=== PATIENT | male | born 1960 | race Caucasian/White ===

== ENCOUNTER 2021-04-09 08:01 | Inpatient (IN) | payer MEDICARE, SELFPAY ==
[2021-04-09] VITALS (8 sets, daily range): BP systolic 87–132; BP diastolic 67–72; PULSE 69–91; RESP 18–24; TEMP 36.2–38.7; O2SAT 87–97; BMI 37.8
--- NOTE | 2021-04-09 08:20 | RAD_ITS ---
STUDY: X-RAY CHEST REASON FOR EXAM: Male, 61 years old. dyspnea TECHNIQUE: AP COMPARISON: None. FINDINGS: EKG leads project over the chest. Airspace disease in the bilateral upper lobes and right lower lobe. There is no demonstrated pleural abnormality. Normal size heart. Normal mediastinum and fantasma. Normal visualized pulmonary arteries. Normal visualized aortic arch and descending thoracic aorta. Normal visualized thoracic spine. Normal visualized ribs, clavicles, and shoulders. There is no demonstrated abnormality of the visualized soft tissue structures of the upper abdomen. RAD/Chest 1 View (Portable) IMPRESSION: Multifocal airspace disease suggesting pneumonia. Electronically Signed: Dex Wiggins MD (Brooks) at 9:06 EST , Service support ,
--- NOTE | 2021-04-09 08:21 | EDS_ITS ---
HPI History of Present Illness Chief Complaint: Shortness of Breath Detail of Chief Complaint: Low oxygen levels and COVID-19 infection Informant: patient Narrative Narrative: Patient presents to the emergency department with complaint of low oxygen levels this morning down to 86%. Patient has had Covid symptoms since approximately March 30. Patient is not vaccinated against Covid. Complains of fatigue and decreased appetite. He complains of body aches. Complains of headache. Patient has a slight nonproductive cough. No significant medical history other than he had an empyema 8 or 9 years ago for which he required surgery. Patient denies chest pain. [facility] Medical History (Updated 04/09/21 @ 10:[address] Katelyn Sewell, DO) Carpal tunnel syndrome Empyema lung Hernia HTN (hypertension) Liver abscess due to bacteria Obesity Home Medications lisinopril 10 mg PO DAILY 04/09/21 [History Last Taken Unknown] Allergy/AdvReac Type Severity Reaction Status Date / Time No Known Allergies Allergy Verified 04/09/21 08:06 Surgical History (Updated 04/09/21 @ 08:24 by Erma Thomas) History of cholecystectomy Social History Smoking Status: Never smoker ROS ROS ED Constitutional Constitutional ED: Reports systems reviewed and no addt'l complaints, except as documented; Denies body ache(s), change in weight or chills Eyes Eyes: Denies acute decrease in peripheral vision, change in vision, double vision or loss of vision ENT ENT ED: Reports none; Denies ear pain, lip swelling, loss taste/smell, neck pain, otalgia or sore throat Cardiovascular Cardiovascular: Reports none; Denies abdominal pain, chest pain with activity, leg edema, lightheadedness, palpitations, rapid heart rate or syncope Respiratory/Chest Respiratory/Chest: Reports none, cough and dyspnea; Denies change in mental status, dry cough, hemoptysis, shortness of breath at rest or shortness of breath with exertion Gastrointestinal Gastrointestinal: Reports none; Denies abdominal pain, change in stool character, diarrhea, hematemesis, hematochezia, melena, rectal bleeding or vomiting Genitourinary Genitourinary ED: Reports none; Denies abdominal discomfort, anuria, dysuria, genital pain or polyuria Musculoskeletal Musculoskeletal: Reports none and myalgias; Denies arthralgias, back pain, difficulty walking, extremity pain or muscle weakness Integumentary Reports none; Denies abscess or rash Neurologic Neurologic: Reports none and headache(s); Denies abnormal gait, confusion, focal weakness, frequent falls, loss of vision, numbness, paresthesias, radicular pain, vertigo or weakness Psychiatric Psychiatric: Reports systems reviewed and no addt'l complaints, except as documented and none; Denies behavioral changes, confusion, difficulty concentrating, hallucinations, suicidal ideation, tactile hallucinations or visual hallucinations Endocrine Endocrinology: Denies none, cold intolerance, excessive sweating, fatigue or heat intolerance Hematologic/Lymphatic Hematologic/Lymphatic: Reports none; Denies anemia, easy bleeding or easy bruising Allergic/Immunologic Allergic/Immunologic ED: Denies as per HPI, none, lip swelling, mouth swelling, throat swelling, tongue swelling or hives EXAM Physical Exam Const Vital Signs: 04/09/21 08:02 04/09/21 08:23 04/09/21 10:07 Temperature 97.1 F L 101.6 F H Temperature Source Temporal Oral Pulse Rate 91 78 Respiratory Rate 24 H 20 H Respiratory Effort Short of Breath Labored Respiratory Depth Normal Respiratory Pattern Normal Blood Pressure 87/69 L 132/69 H Blood Pressure Mean 75 90 Pulse Ox 93 97 Oxygen Delivery Method Room Air Nasal Cannula Nasal Cannula Oxygen Flow Rate (L/min) 4 4 Positive well nourished and well developed General Appearance ED: well developed and NAD HEENT Reports TM's clear and moist mucous membranes normocephalic and atraumatic; Negative for trauma or tenderness Tympanic Membrane ED: Yes TM's clear Eyes PERRL and EOMs intact bilaterally General Eye ED: Negative for pale conjunctiva or scleral icterus Neck no lymphadenopathy, supple and no JVD General: Negative for tenderness Chest Wall inspection of chest normal and palpation of chest normal Chest: Negative for tenderness Resp normal respiratory effort and clear to auscultation bilaterally Effort and Inspection: Negative for respiratory distress or pain with movement Auscultation: Negative for rhonchi, wheezes or diminished lung sounds Cardio regular rate, regular rhythm, S1 normal heart sound, S2 normal heart sound and no murmurs Peripheral Pulses: pulses 2+ throughout GI normal to inspection, nondistended, normoactive bowel sounds, soft to palpation, non-tender, non-distended and no masses Back/Spine no CVA tenderness and no thoracic nor lumbar tenderness Extremity normal to inspection General Extremety ED: Negative for edema General Extremity: Negative for edema Neuro oriented x3, CN's II-XII intact bilaterally, no sensory deficits noted and gait normal Sensorium / Orientation: awake, alert, oriented to person, oriented to place and oriented to time Motor Exam: strength 5/5 throughout and strength abnormal Psych mental status grossly normal Skin no rashes or lesions noted and no wounds MDM MDM MDM Narrative Medical decision making narrative: IV line established on arrival. Patient placed on oxygen. Patient given normal saline bolus of a liter. Patient was given Decadron 6 mg p.o. patient had an elevated D-dimer therefore CTA of the chest was obtained to rule out PE and this was negative for PE but did show bilateral infiltrates consistent with Covid pneumonia.. Case will be discussed with hospitalist evaluate patient for admission for Covid with hypoxemia Lab Data Attestation: I reviewed the patient's lab results. Labs: Laboratory Results - last 24 hr 04/09/21 04/09/21 04/09/21 08:33 08:33 08:33 WBC 4.2 L RBC 5.54 Hgb 16.1 Hct 45.3 MCV 81.8 MCH 29.1 MCHC 35.5 RDW Std Deviation 38.3 RDW Coeff of Mayco 12.7 Plt Count 167 MPV 8.9 Immature Gran % (Auto) 0.900 Neut % (Auto) 78.5 H Lymph % (Auto) 13.3 L Hartley % (Auto) 7.3 Eos % (Auto) 0.0 Baso % (Auto) 0.0 Absolute Neuts (auto) 3.3 Absolute Lymphs (auto) 0.56 L Nucleated RBC % 0 Diff Path Review May foll Reactive Lymphocytes RARE Platelet Estimate ADEQUATE RBC Morphology NORM C+C D-Dimer Quant (PE/DVT) 2.23 H* Sodium 131 L Potassium 3.7 Chloride 96 L Carbon Dioxide 27.0 Anion Gap 8 BUN 28 H Creatinine 1.53 H Estim Creat Clear Calc 44.66 Est GFR (MDRD) Af Amer 60 Est GFR (MDRD) Non-Af 50 L BUN/Creatinine Ratio 18.3 Glucose 122 H Lactic Acid Calcium 8.5 04/09/21 08:33 WBC RBC Hgb Hct MCV MCH MCHC RDW Std Deviation RDW Coeff of Mayco Plt Count MPV Immature Gran % (Auto) Neut % (Auto) Lymph % (Auto) Hartley % (Auto) Eos % (Auto) Baso % (Auto) Absolute Neuts (auto) Absolute Lymphs (auto) Nucleated RBC % Diff Path Review Reactive Lymphocytes Platelet Estimate RBC Morphology D-Dimer Quant (PE/DVT) Sodium Potassium Chloride Carbon Dioxide Anion Gap BUN Creatinine Estim Creat Clear Calc Est GFR (MDRD) Af Amer Est GFR (MDRD) Non-Af BUN/Creatinine Ratio Glucose Lactic Acid 2.0 Calcium Radiography Chest X-Ray - ED: 1 View Diagnostic Testing: Clinical Impression(s) from Imaging Studies Chest X-Ray 04/09/21 08:20 IMPRESSION: Multifocal airspace disease suggesting pneumonia. Electronically Signed: Dex Wiggins MD (Brooks) at 9:06 EST , Service support , 1 view chest x-ray obtained interpreted by myself as bilateral infiltrates. Radiology in agreement. Discharge Plan Dx/Rx/DC Orders Clinical Impression: COVID-19, Hypoxemia Disposition Disposition: Acute Care Hospital [facility]
[2021-04-09] MEDS: 0.9% Normal Saline 1,000 ML 1000 ML IV (08:35)
[2021-04-09] MEDS: dexAMETHasone 4 MG Tablet 6 MG PO (08:44)
[2021-04-09 08:50] LABS: Absolute Lymphocyte Count 0.56 X10^3/uL (0.83-4.51); Absolute Neutrophil Count 3.3 X10^3/uL (2.0-7.7); Hematocrit 45.3 % (40-54); Hemoglobin 16.1 g/dL (13.0-16.5); Lymphocyte # 0.56 X10^3/ul (0.83-4.51); Lymphocyte % 13.3 % (19-41); Mean Corp Hgb Conc 35.5 g/dL (32-36); Mean Corpuscular Hgb 29.1 pg (27.0-32.0); Mean Corpuscular Volume 81.8 fL (80-94); Mean Platelet Vol. 8.9 fl (6.2-12.0); Monocyte# 0.31 X10^3/uL; Monocyte% 7.3 % (0-10); NRBC Flagged by Analyzer 0 % (0-5); Neutrophil # 3.31 X10^3/uL (2.7-7.7); Neutrophil % 78.5 % (47-70); POSITIVE DIFFERENTIAL YES; POSITIVE MORPHOLOGY YES; Platelet Count 167 K/mm3 (150-450); RBC Distribution Width CV 12.7 % (11.6-14.6); RBC Distribution Width SD 38.3 fl (35.1-43.9); Red Blood Count 5.54 M/mm3 (4.6-6.2); White Blood Count 4.2 K/mm3 (4.4-11.0)
[2021-04-09 08:53] LABS: Differential Indicated SCAN CRITERIA MET
[2021-04-09 09:00] LABS: Anion Gap 8 (5-15); BUN 28 mg/dL (7-18); BUN/Creat Ratio 18.3 RATIO (10-20); Calcium,Total 8.5 mg/dL (8.5-10.1); Chloride 96 mmol/L (98-107); Creatinine, Serum 1.53 mg/dL (0.70-1.30); EST Glomerular Filtration Rate 50 mL/min (>60); Est Glom Filt Rate - Afr Amer 60 mL/min (>60); Estimated Creatinine Clearance 44.66 ml/min; Glucose 122 mg/dL (74-106); Potassium 3.7 mmol/L (3.5-5.1); Sodium Level 131 mmol/L (136-145)
[2021-04-09 09:05] LABS: D-Dimer Quantitative (DVT/PE) 2.23 FEU/ug/m (0.27-0.49)
[2021-04-09 09:24] LABS: Platelet Estimate ADEQUATE (ADEQ); Red Cell Morphology NORM C+C NORMAL (NORM C&C)
[2021-04-09 09:25] LABS: Reactive Lymphocyte RARE
--- NOTE | 2021-04-09 09:26 | CT_ITS ---
STUDY: CTA CHEST REASON FOR EXAM: Male, 61 years old. Elevated d-dimer, hypoxia RADIATION DOSAGE (If Supplied By Facility): CTDIvol = ( 12.66 ) mGy, DLP = ( 432.10 ) mGycm TECHNIQUE: The examination was performed with the intravenous administration of IV 100mL Isovue-370. Post-processing of the angiographic images was performed, with multiplanar reformation and 3D reconstruction. Individualized dose optimization techniques were used for this CT. COMPARISON: None. FINDINGS: Normal enhancement of the main pulmonary artery and right and left pulmonary arteries. Normal enhancement of the bilateral peripheral pulmonary arteries. There is no demonstrated pulmonary embolism. Normal thoracic aorta and visualized great vessels. There is no demonstrated aortic dissection. Normal heart and pericardium. Normal mediastinum. Normal hilar regions. There is peribronchial thickening. The lungs are well expanded. Diffuse interstitial and airspace opacifications in both lung white without effusions. This pattern of opacification is consistent with and suspicious for covid pneumonia. Normal pleura. Normal chest wall structures. There are degenerative changes of thoracic spine. Limited cuts through the upper abdomen show fatty infiltration of the liver with scattered simple cysts. CT/CTA Chest W/WO Contrast IMPRESSION: No demonstrated PE, or thoracic aortic aneurysm or dissection Diffuse interstitial and airspace opacifications in both lung white without effusions. This is suspicious for Covid pneumonia Chronic bronchitis Fatty liver with simple cysts, no specific follow-up Electronically Signed: Nolberto Wilder MD at 10:37 EST , Service support ,
[2021-04-09] MEDS: 0.9% Normal Saline 1,000 ML 150 ML IV ×2 (10:08→19:12)
[2021-04-09] MEDS: Acetaminophen 325 MG Tablet 650 MG PO ×2 (10:35→22:54)
--- NOTE | 2021-04-09 10:50 | NURSING ---
DR CAROLINA FOR DR SLADE
--- NOTE | 2021-04-09 11:08 | NURSING ---
MED SURG TERELETSKY COVID 19, HYPOXEMIA
--- NOTE | 2021-04-09 11:23 | NURSING ---
ATTEMPTED TO CALL [facility] FOR COVID RESULTS. UNABLE TO GET ANYONE TO PHONE. WAITED 20 MIN ON HOLD.
[2021-04-09 12:38] LABS: Reflex Lactate? Y
[2021-04-09 13:39] LABS: Alkaline Phosphatase 39 U/L (45-117)
[2021-04-09 13:46] LABS: Lactic Acid 0.9 mmol/L (0.4-1.9)
--- NOTE | 2021-04-09 14:13 | PCS.PANDOC ---
PANDEMIC DOCUMENTATION INITIATED: Date: 11/23/2020 Time: 190
--- NOTE | 2021-04-09 17:00 | CASEMGMT ---
Addendum entered by Renata Lockwood 04/10/21 11:13: 04/09/21 @ 1730. TC to [facility]--they have O2 and can do self-pay but state unable to service pt's area at this time. Addendum entered by Renata Lockwood 04/10/21 11:08: 04/09/21 @ 1730. Unable to find DME company that can provide for pt @ d/c until Monday. Several DME companies are out of O2 and unable to do new O2 set-up. [facility] has O2 but do not take self-pay. Dr Faustin made aware. Original Note: RN DOMINIK PARCEL POST OFFICER DOMINIK placed call to pt's room for initial transition planning/care coordination assessment. PARDEEP LEHMAN introduced self and role at [facility]. Pt voices understanding and consents to assessment at this time. Pt is A/O at this time and answers all questions appropriately. Care providers, pharmacy, and demographics verified/updated at this time. COVID testing done @ [facility] PCP: Dr Domínguez Specialists: none Preferred Pharmacy: [facility] Insurance: [employer] Prescription Benefit: none Living Will/HPOA: Pt does not currently have LW/HCPOA and declines info LNOK: , Lorri Living Arrangements: Lives w/ and special-needs son in 2-story home w/ramp entrance. Bedroom is on 2nd floor, but could do FFSU. Independent prior to COVID illness. Transportation: Pt states drives self and states no transportation concerns at this time. also drives. DME: Has a pulse ox. Does not have home O2. Pt aware he may qualify for home O2 @ discharge. Made aware out-of-cost of O2 is approx $200/30-day supply. Pt states this is affordable. HHC/SNF: No hx of SNF. Has had HHC in the past. Declines need for HHC at this time. Pt wishes to return home and states has no concerns with going home at time of discharge. Nursing to follow for home oxygen needs and any further discharge planning/needs. Pt voices no further concerns/needs at this time. PLAN: Home. Follow for possible Home O2 @ d/c Wilner RAUSCH RN, CM
[2021-04-09] MEDS: Enoxaparin 40 MG/0.4 ML Syringe SC (19:12)
--- NOTE | 2021-04-09 19:16 | PCM.HP.STD ---
HPI - General General Date of Admission: 04/09/21 Date of Service: 04/09/21 Chief Complaint: Shortness of breath, fatigue HPI Narrative PAPITO MEDINA, is a 61 M who presents to the emergency room at [facility] for evaluation of fatigue and shortness of breath. Patient states that he has been fatigued for several days-starting on or about March 29 2021. Patient states he became short of breath today, he notices oxygen level at home was down to 86. Patient also complains of body aches and a slight nonproductive cough. Work-up in the emergency room included a chest x-ray which showed bilateral infiltrates suggestive of COVID-19 pneumonia, Covid antigen test was positive-patient stated that he had a Covid test done on April 04, 2021 that was also positive. Patient's D-dimer was elevated at 2.23, patient underwent a CTA of the chest which showed no evidence of pulmonary emboli. Patient's creatinine was 1.53 and BUN was 28. Patient was admitted for COVID-19 pneumonia, IV dexamethasone and initially remdesivir was ordered, after talking with the patient further, he confirmed that he had actually had symptoms of Covid 11 days prior, patient is not a candidate for remdesivir treatment. [facility] Medical History (Updated 04/09/21 @ 10:[address] Katelyn Sewell DO) Carpal tunnel syndrome Empyema lung Hernia HTN (hypertension) Liver abscess due to bacteria Obesity Home Medications lisinopril 10 mg PO DAILY 04/09/21 [History Last Taken Unknown] Allergy/AdvReac Type Severity Reaction Status Date / Time No Known Allergies Allergy Verified 04/09/21 08:06 Surgical History (Updated 04/09/21 @ 08:24 by Erma Thomas) History of cholecystectomy Social History Smoking Status: Never smoker ROS Constitutional Constitutional: Reports fatigue, malaise and weakness; Denies anorexia, change in weight, fever(s) or night sweats Eyes Eyes: Denies blurry vision, change in vision, discharge from eye(s) or eye pain Cardiovascular Cardiovascular: Reports dyspnea on exertion; Denies chest pain, claudication, edema or palpitations Respiratory/Chest Respiratory/Chest: Reports cough and shortness of breath with exertion; Denies hemoptysis or shortness of breath at rest Gastrointestinal Gastrointestinal: Denies abdominal pain, constipation, diarrhea, hematemesis, hematochezia, melena, nausea or vomiting Genitourinary Genitourinary: Denies dysuria, hematuria, urinary frequency, urinary hesitancy, urinary incontinence or urinary urgency Musculoskeletal Musculoskeletal: Denies back pain, joint pain, joint stiffness, joint swelling, myalgias or neck pain Neurologic Neurologic: Denies abnormal gait, abnormal speech, dizziness, focal weakness, headache(s), loss of vision, numbness, other visual disturbances, paresthesias, syncope or tingling Psychiatric Psychiatric: Denies anxiety, cognitive impairment, depression, irritability, mood swings or suicidal ideation Endocrine Endocrinology: Denies change in body appearance, cold intolerance, excessive sweating, heat intolerance, polydipsia or polyuria Hematologic/Lymphatic Hematologic/Lymphatic: Denies none, anemia, easy bleeding, easy bruising or lymphadenopathy Allergic/Immunologic Allergic/Immunologic: Denies rhinitis, urticaria, eczemia or asthma Vital Signs Vital Signs Vital Signs: 04/09/21 08:02 04/09/21 08:23 04/09/21 10:07 Temperature 97.1 F L 101.6 F H Temperature Source Temporal Oral Pulse Rate 91 78 Respiratory Rate 24 H 20 H Respiratory Effort Short of Breath Labored Respiratory Depth Normal Respiratory Pattern Normal Blood Pressure 87/69 L 132/69 H Blood Pressure Mean 75 90 Blood Pressure Source Blood Pressure Position Blood Pressure Position [BP] Blood Pressure Location Pulse Ox 93 97 Pulse Ox [AMBULATING on Room Air] Pulse Ox [AMBULATING with Oxygen #1] Pulse Ox [At REST on Room Air] Pulse Ox [At REST with Oxygen] Oxygen Delivery Method Room Air Nasal Cannula Nasal Cannula Oxygen Flow Rate (L/min) 4 4 Oxygen Flow Rate (L/min) [AMBULATING on Room Air] Oxygen Flow Rate (L/min) [AMBULATING with Oxygen #1] Oxygen Flow Rate (L/min) [At REST on Room Air] Oxygen Flow Rate (L/min) [At REST with Oxygen] Fraction of Inspired Oxygen (FIO2) 04/09/21 11:53 04/09/21 14:03 04/09/21 14:25 Temperature 99.4 F H 98.1 F Temperature Source Oral Oral Pulse Rate 72 69 70 Respiratory Rate 18 20 H Respiratory Effort Normal Respiratory Depth Respiratory Pattern Normal Blood Pressure 113/72 105/71 Blood Pressure Mean 85 82 Blood Pressure Source Monitor Blood Pressure Position Sitting Blood Pressure Position [BP] Sitting Blood Pressure Location Right Arm Pulse Ox 96 92 92 Pulse Ox [AMBULATING on Room Air] Pulse Ox [AMBULATING with Oxygen #1] Pulse Ox [At REST on Room Air] Pulse Ox [At REST with Oxygen] Oxygen Delivery Method Nasal Cannula Room Air Room Air Oxygen Flow Rate (L/min) 4 2 Oxygen Flow Rate (L/min) [AMBULATING on Room Air] Oxygen Flow Rate (L/min) [AMBULATING with Oxygen #1] Oxygen Flow Rate (L/min) [At REST on Room Air] Oxygen Flow Rate (L/min) [At REST with Oxygen] Fraction of Inspired Oxygen (FIO2) 96 04/09/21 17:04 04/09/21 17:45 Temperature Temperature Source Pulse Rate Respiratory Rate Respiratory Effort Normal Respiratory Depth Normal Respiratory Pattern Normal Blood Pressure Blood Pressure Mean Blood Pressure Source Blood Pressure Position Blood Pressure Position [BP] Blood Pressure Location Pulse Ox Pulse Ox [AMBULATING on Room Air] 87 Pulse Ox [AMBULATING with Oxygen #1] 92 Pulse Ox [At REST on Room Air] 91 Pulse Ox [At REST with Oxygen] 93 Oxygen Delivery Method Nasal Cannula Oxygen Flow Rate (L/min) Oxygen Flow Rate (L/min) [AMBULATING on Room Air] 0 Oxygen Flow Rate (L/min) [AMBULATING with Oxygen #1] 2 Oxygen Flow Rate (L/min) [At REST on Room Air] 0 Oxygen Flow Rate (L/min) [At REST with Oxygen] 2 Fraction of Inspired Oxygen (FIO2) Weight Weight: 102.965 kg Body Mass Index (BMI) 37.8 Physical Exam Const alert, oriented x3, no apparent distress and healthy appearing General Appearance: cooperative, well kempt and well developed Orientation / Consciousness: awake, oriented to person, oriented to place and oriented to time HEENT normocephalic and moist oral mucous membranes Eyes PERRL, EOMs intact bilaterally and conjunctivae normal Neck nuchal rigidity, supple, no JVD, thyroid normal and no carotid bruits General: trachea midline Resp normal respiratory effort and clear to auscultation bilaterally Auscultation: Negative for rales, rhonchi or wheezes Cardio regular rate, regular rhythm, no murmurs, no rub and no gallops GI normal to inspection, nondistended, normoactive bowel sounds, soft to palpation, non-tender and non-distended Extremity no clubbing, cyanosis or edema Skin no rashes or lesions noted General Skin Exam: no breakdown Neuro oriented x3, CN's II-XII intact bilaterally, no focal motor deficits and no sensory deficits noted Sensorium / Orientation: awake and alert Speech: speech normal Psych thought process normal and affect normal Results Lab / Micro Data Result Diagrams: 04/09/21 08:33 04/09/21 08:33 Labs: Laboratory Results - last 24 hr 04/09/21 08:33: WBC 4.2 L, RBC 5.54, Hgb 16.1, Hct 45.3, MCV 81.8, MCH 29.1, MCHC 35.5, RDW Std Deviation 38.3, RDW Coeff of Mayco 12.7, Plt Count 167, MPV 8.9, Immature Gran % (Auto) 0.900, Neut % (Auto) 78.5 H, Lymph % (Auto) 13.3 L, Hitchcock % (Auto) 7.3, Eos % (Auto) 0.0, Baso % (Auto) 0.0, Absolute Neuts (auto) 3.3, Absolute Lymphs (auto) 0.56 L, Nucleated RBC % 0, Diff Path Review May foll, Reactive Lymphocytes RARE, Platelet Estimate ADEQUATE, RBC Morphology NORM C+C 04/09/21 08:33: D-Dimer Quant (PE/DVT) 2.23 H* 04/09/21 08:33: Sodium 131 L, Potassium 3.7, Chloride 96 L, Carbon Dioxide 27.0, Anion Gap 8, BUN 28 H, Creatinine 1.53 H, Estim Creat Clear Calc 44.66, Est GFR (MDRD) Af Amer 60, Est GFR (MDRD) Non-Af 50 L, BUN/Creatinine Ratio 18.3, Glucose 122 H, Calcium 8.5 04/09/21 08:33: Lactic Acid 2.0 04/09/21 13:00: Lactic Acid 0.9 04/09/21 13:00: Alkaline Phosphatase 39 L Micro: Microbiology 04/09/21 11:51 Nasal Secretion SARS-CoV-2 Antigen (Rapid) - Final SARS-CoV-2 (COVID 19) Radiology Impression Chest X-Ray 04/09/21 08:20 IMPRESSION: Multifocal airspace disease suggesting pneumonia. Electronically Signed: Dex Wiggins MD (Brooks) at 9:06 EST , Service support , Chest CTA 04/09/21 09:26 IMPRESSION: No demonstrated PE, or thoracic aortic aneurysm or dissection Diffuse interstitial and airspace opacifications in both lung white without effusions. This is suspicious for Covid pneumonia Chronic bronchitis Fatty liver with simple cysts, no specific follow-up Electronically Signed: Nolberto Wilder MD at 10:37 EST , Service support , Assessment & Plan Assessment/Plan (1) COVID-19: PLAN: 1. COVID-19 pneumonia-again, initially patient was thought to be a candidate for remdesivir treatment, however, after talking with the patient further, he confirmed that his symptoms actually started 11 days ago. Patient will not be given any further remdesivir (he received a starting dose), I explained this to him today. Patient will have dexamethasone 6 mg IV daily administered. #2 acute hypoxic respiratory failure secondary to COVID-19 pneumonia-patient requires no oxygen at rest at this time, he does require 2 L of oxygen however on ambulation. It will be difficult to set up oxygen for this patient because he is basically self-pay, case management worked on this late this afternoon but was not able to locate an oxygen supplier for this patient. Patient may be forced to stay in the hospital until he is not hypoxic or until this Monday. #3 hypertension-patient will remain on lisinopril #4 elevated creatinine-significance is unknown at this time, BMP will be repeated tomorrow morning Charges/Coding Visit Charges Inpatient E&M: 16653 Init Hosp L3
[2021-04-10] VITALS (16 sets, daily range): BP systolic 111–138; BP diastolic 65–86; PULSE 66–81; RESP 16–20; TEMP 36.6–37.5; O2SAT 84–96
[2021-04-10] MEDS: 0.9% Normal Saline 1,000 ML 150 ML IV ×2 (02:31→09:10)
[2021-04-10] MEDS: Enoxaparin 40 MG/0.4 ML Syringe SC (06:56)
[2021-04-10 06:59] LABS: Anion Gap 7 (5-15); BUN 22 mg/dL (7-18); BUN/Creat Ratio 30.1 RATIO (10-20); Calcium,Total 7.4 mg/dL (8.5-10.1); Chloride 106 mmol/L (98-107); Creatinine, Serum 0.73 mg/dL (0.70-1.30); EST Glomerular Filtration Rate 117 mL/min (>60); Est Glom Filt Rate - Afr Amer 141 mL/min (>60); Estimated Creatinine Clearance 93.61 ml/min; Glucose 132 mg/dL (74-106); Sodium Level 136 mmol/L (136-145)
[2021-04-10] MEDS: dexAMETHasone 10 MG/ML Vial 6 MG IV (10:38)
[2021-04-10] MEDS: Lisinopril 10 MG Tablet PO (10:38)
--- NOTE | 2021-04-10 15:40 | PN.HOSP_ITS ---
Subjective Subjective Patient was seen and examined today, he is currently on 5 L of oxygen via nasal cannula. Case management was unable to set up oxygen for the patient today and so it appears that he will stay in the hospital and receive IV Decadron and perhaps his oxygen requirement may diminish enough to go home on no oxygen, if t his does not occur in the next 48 hours, it is possible oxygen could be set up next week for the patient at home. Objective Data Objective Data Vital Signs: Vital Signs Temp Pulse Resp BP Pulse Ox 99.5 F H 81 20 H 129/65 H 95 04/10/21 13:45 04/10/21 13:45 04/10/21 13:45 04/10/21 13:45 04/10/21 13:45 Oxygen Flow Rate (L/min) [At 1.5 REST with Oxygen] Oxygen Flow Rate (L/min) [ 6 AMBULATING with Oxygen #1] Oxygen Flow Rate (L/min) [ 0 AMBULATING on Room Air] Oxygen Flow Rate (L/min) [At 0 REST on Room Air] Oxygen Flow Rate (L/min) 5 Oxygen Delivery Method Nasal Cannula Weight: 102.965 kg Body Mass Index (BMI) 37.8 Intake & Output: Intake and Output for Last 24 Hours 04/08/21 04/09/21 04/10/21 23:59 23:59 23:59 Intake Total 2550 / 2550 2280.0 / 2280.0 Balance 2550 / 2550 2280.0 / 2280.0 Lab / Micro Data Result Diagrams: 04/09/21 08:33 04/10/21 04:50 Labs: Laboratory Results - last 24 hr 04/10/21 04:50: Sodium 136, Potassium 4.0, Chloride 106, Carbon Dioxide 23.0, Anion Gap 7, BUN 22 H, Creatinine 0.73, Estim Creat Clear Calc 93.61, Est GFR (MDRD) Af Amer 141, Est GFR (MDRD) Non-Af 117, BUN/Creatinine Ratio 30.1 H, Glucose 132 H, Calcium 7.4 L Micro: Microbiology 04/09/21 11:51 Nasal Secretion SARS-CoV-2 Antigen (Rapid) - Final SARS-CoV-2 (COVID 19) Physical Exam Const alert, oriented x3, no apparent distress and healthy appearing General Appearance: cooperative, well kempt and well developed Orientation / Consciousness: awake, oriented to person, oriented to place and oriented to time HEENT normocephalic and moist oral mucous membranes Eyes PERRL, EOMs intact bilaterally and conjunctivae normal Neck nuchal rigidity, supple, no JVD and thyroid normal General: trachea midline Resp normal respiratory effort, no retractions, no use of accessory muscles and clear to auscultation bilaterally Auscultation: Negative for rales, rhonchi or wheezes Cardio regular rate, regular rhythm, S1 normal heart sound, S2 normal heart sound, no murmurs, no rub and no gallops GI normal to inspection, nondistended, normoactive bowel sounds, soft to palpation, non-tender and non-distended Extremity no clubbing, cyanosis or edema Skin no rashes or lesions noted General Skin Exam: no breakdown Neuro oriented x3, CN's II-XII intact bilaterally, no focal motor deficits and no sensory deficits noted Sensorium / Orientation: awake and alert Speech: speech normal Psych thought process normal and affect normal Assessment & Plan Assessment/Plan (1) COVID-19: PLAN: 1. COVID-19 pneumonia-continue IV dexamethasone #2 acute hypoxic respiratory failure secondary to COVID-19 pneumonia-patient currently requires 5 L of oxygen via nasal cannula at rest #3 hypertension-patient will remain on lisinopril #4 elevated creatinine-resolved with administration of fluids, I will stop the patient's IV fluids at this time. Charges/Coding Visit Charges Inpatient E&M: 31115 Subs Hosp L2
[2021-04-10] MEDS: Acetaminophen 325 MG Tablet 650 MG PO (19:13)
[2021-04-11] VITALS (7 sets, daily range): BP systolic 111–140; BP diastolic 60–82; PULSE 63–74; RESP 18–26; TEMP 36.5–36.9; O2SAT 92–95
[2021-04-11] MEDS: Enoxaparin 40 MG/0.4 ML Syringe SC (11:03)
[2021-04-11] MEDS: Lisinopril 10 MG Tablet PO (11:03)
[2021-04-11] MEDS: dexAMETHasone 10 MG/ML Vial 6 MG IV (11:03)
[2021-04-11] MEDS: 0.9% Saline Lock 10 ML Syringe IV (11:08)
--- NOTE | 2021-04-11 17:35 | PN.HOSP_ITS ---
Subjective Subjective Patient was seen and examined today, he is currently on 11 L nasal cannula at the time of this dictation. Patient does not complain of any fevers or chills, he does not complain of any shortness of breath at rest. Objective Data Objective Data Vital Signs: Vital Signs Temp Pulse Resp BP Pulse Ox 98.1 F 74 22 H 125/74 H 92 04/11/21 14:16 04/11/21 14:16 04/11/21 14:16 04/11/21 14:16 04/11/21 14:16 Oxygen Flow Rate (L/min) [At 1.5 REST with Oxygen] Oxygen Flow Rate (L/min) [ 6 AMBULATING with Oxygen #1] Oxygen Flow Rate (L/min) [ 0 AMBULATING on Room Air] Oxygen Flow Rate (L/min) [At 0 REST on Room Air] Oxygen Flow Rate (L/min) 11 Oxygen Delivery Method Nasal Cannula Weight: 102.965 kg Body Mass Index (BMI) 37.8 Intake & Output: Intake and Output for Last 24 Hours 04/09/21 04/10/21 04/11/21 23:59 23:59 23:59 Intake Total 2550 / 2550 2780.0 / 2780.0 560 / 560 Balance 2550 / 2550 2780.0 / 2780.0 560 / 560 Lab / Micro Data Result Diagrams: 04/09/21 08:33 04/10/21 04:50 Micro: Microbiology 04/09/21 08:40 Blood Culture (Wb) - Anticubital Right Blood Culture - Preli minary No growth in 48 hours. 04/09/21 08:33 Blood Culture (Wb) - Anticubital Left Blood Culture - Preliminary No growth in 48 hours. 04/09/21 11:51 Nasal Secretion SARS-CoV-2 Antigen (Rapid) - Final SARS-CoV-2 (COVID 19) Physical Exam Const alert, oriented x3, no apparent distress and healthy appearing General Appearance: cooperative, well kempt and well developed Orientation / Consciousness: awake, oriented to person, oriented to place and oriented to time HEENT normocephalic and moist oral mucous membranes Eyes PERRL, EOMs intact bilaterally and conjunctivae normal Neck nuchal rigidity, supple, no JVD, thyroid normal and no carotid bruits General: trachea midline Resp normal respiratory effort, no retractions, no use of accessory muscles and clear to auscultation bilaterally Auscultation: Negative for rales, rhonchi or wheezes Cardio regular rate, regular rhythm, S1 normal heart sound, S2 normal heart sound, no murmurs, no rub and no gallops GI normal to inspection, nondistended, normoactive bowel sounds, soft to palpation, non-tender and non-distended Extremity no clubbing, cyanosis or edema Skin no rashes or lesions noted General Skin Exam: no breakdown Neuro oriented x3, CN's II-XII intact bilaterally, no focal motor deficits and no sensory deficits noted Sensorium / Orientation: awake and alert Speech: speech normal Psych thought process normal and affect normal Assessment & Plan Assessment/Plan (1) COVID-19: PLAN: 1. COVID-19 pneumonia-continue IV dexamethasone #2 acute hypoxic respiratory failure secondary to COVID-19 pneumonia-patient currently requires 11 L of oxygen via nasal cannula at rest #3 hypertension-patient will remain on lisinopril #4 elevated creatinine-resolved Charges/Coding Visit Charges Inpatient E&M: 68632 Subs Hosp L2
[2021-04-12] VITALS (11 sets, daily range): BP systolic 99–152; BP diastolic 52–82; PULSE 59–72; RESP 20–32; TEMP 36.4–36.9; O2SAT 89–96
[2021-04-12 09:07] LABS: Absolute Lymphocyte Count 0.41 X10^3/uL (0.83-4.51); Absolute Neutrophil Count 5.6 X10^3/uL (2.0-7.7); Basophil# 0.02 X10^3/uL; Basophil% 0.3 % (0-1); Hematocrit 36.6 % (40-54); Lymphocyte # 0.41 X10^3/ul (0.83-4.51); Lymphocyte % 6.2 % (19-41); Mean Corp Hgb Conc 35.5 g/dL (32-36); Mean Corpuscular Hgb 29.3 pg (27.0-32.0); Mean Corpuscular Volume 82.4 fL (80-94); Mean Platelet Vol. 8.9 fl (6.2-12.0); Monocyte# 0.33 X10^3/uL; NRBC Flagged by Analyzer 0 % (0-5); Neutrophil # 5.63 X10^3/uL (2.7-7.7); Neutrophil % 84.7 % (47-70); POSITIVE DIFFERENTIAL YES; Platelet Count 195 K/mm3 (150-450); RBC Distribution Width CV 12.5 % (11.6-14.6); Red Blood Count 4.44 M/mm3 (4.6-6.2); White Blood Count 6.6 K/mm3 (4.4-11.0)
[2021-04-12 09:08] LABS: Differential Indicated SCAN CRITERIA MET
[2021-04-12 09:37] LABS: ALB/GLOB Ratio 0.5 RATIO (0.9-2.4); AST(SGOT) 85 U/L (15-37); Alanine Aminotransfer ALT/SGPT 87 U/L (16-61); Albumin, Serum 2.1 g/dL (3.2-5.0); Alkaline Phosphatase 46 U/L (45-117); Anion Gap 8 (5-15); BUN 16 mg/dL (7-18); BUN/Creat Ratio 21.2 RATIO (10-20); Chloride 104 mmol/L (98-107); Creatinine, Serum 0.76 mg/dL (0.70-1.30); EST Glomerular Filtration Rate 112 mL/min (>60); Est Glom Filt Rate - Afr Amer 136 mL/min (>60); Estimated Creatinine Clearance 89.91 ml/min; Globulin 4.2 g/dL (2.2-4.2); Glucose 135 mg/dL (74-106); Potassium 4.1 mmol/L (3.5-5.1); Protein, Total 6.3 g/dL (6.4-8.2); Sodium Level 135 mmol/L (136-145)
[2021-04-12] MEDS: Enoxaparin 40 MG/0.4 ML Syringe SC (10:21)
[2021-04-12] MEDS: dexAMETHasone 10 MG/ML Vial 6 MG IV (10:21)
[2021-04-12] MEDS: Lisinopril 10 MG Tablet PO (10:21)
[2021-04-12] MEDS: 0.9% Saline Lock 10 ML Syringe IV ×2 (10:22→16:41)
[2021-04-12 13:36] LABS: BNP,B-Type NATRIURETIC PEPTIDE 141.9 pg/mL (0-100)
[2021-04-12 13:46] LABS: Procalcitonin 0.12 ng/mL (0.00-0.09)
[2021-04-12 14:39] LABS: Pathologist Review Reviewed
--- NOTE | 2021-04-12 14:40 | CON.PCM.CC_ITS ---
Assessment & Plan Assessment/Plan (1) Acute respiratory failure with hypoxia: (2) COVID-19: PLAN: RECOMMENDATIONS: 1. Continue Decadron (04/20/2021) and await decision on baricitinib 2. Encourage prone positioning, Acapella and incentive spirometer 3. May benefit from BiPAP overnight if develops hypoxia with sleep 4. Intermittent diuretics as necessary to maintain euvolemia 5. Okay to continue with prophylactic dose Lovenox 6. Transition to full CODE STATUS IMPRESSIONS: 1. Acute hypoxic respiratory failure secondary to COVID-19 Patient is doing okay at this time. Patient is almost 2 weeks from initial symptoms. However, CRP is still significantly elevated. Patient has been seen by infectious disease. Await decision on baricitinib. Patient would be a candidate for Decadron therapy. Agree with Remdesivir avoidance given delayed presentation. Patient is positive almost 5 L over the course of the hospitalization. Patient will be given Lasix therapy. No fevers have been noted and pro calcitonin is only mildly elevated. Agree with monitoring off of antibiotics for now. Cannot exclude the need for BiPAP with sleep given patient's history of snoring and possible undiagnosed sleep apnea. Patient did not have a PE on CTA, so prophylactic dosing of Lovenox is appropriate. Patient will need a walking oximetry prior to discharge. Patient does have a history of empyema, so may have an element of restriction, but no PFTs are available for review. 2. Obesity/nonvaccinated status/hypertension Complicates care, management, recovery and prognosis. Discussed with the patient for 16 minutes on the importance of CODE STATUS, reviewing the various options and determining the best for him. Patient with very poor insight into his overall condition and potential prognosis. Patient is a full code at this time. Okay to continue with baseline antihypertensives at this time. HPI Consult Data Date of Consult: 04/12/21 HPI Narrative HPI Narrative: PAPITO MEDINA is a 61 M, with past medical history listed below, who presented to [facility] on 04/09[facility]2021 secondary to hypoxia and progressive shortness of breath. Patient reportedly started to have symptoms on the Monday before [place] with fatigue and a dry cough. Patient reported this was progressively getting worse and on the day of presentation had noted that his saturations have decreased to 86%. Patient has required supplemental oxygen in the past associated with an empyema and liver abscess where he was admitted at the [facility] for 3 weeks. Patient states he was well back to his baseline and off of supplemental oxygen for over 5 years. Patient had denied any chest pain, nausea, vomiting or diarrhea. In the ER, patient was febrile to 101.6 ?F and hypoxic requiring 4 L nasal cannula to maintain saturations. Laboratory work-up showed a white blood cell count of 4.2, hemoglobin of 16.1, D-dimer of 2.23 and a sodium of 131. Patient's creatinine was elevated at 1.5 and glucose was 122. Patient's lactate was 2. Chest x-ray showed multifocal infiltrates. Patient subsequently had a CTA of the chest showing no PE but confirming bilateral groundglass opacities. Patient was admitted to the floor for further evaluation on supplemental oxygen. Patient was not given Remdesivir secondary to protracted presentation. Since admission, patient overall feels subjectively slightly improved. Patient feels that he has more energy and is getting some mild production with cough. However, patient has required Airvo at higher FiO2's to maintain saturations. Patient denies any current chest pain, but does report that he coughs with any use of the incentive spirometer. Patient denies any history of obstructive sleep apnea, but readily admits that his snoring is improved with weight loss. Patient has not been initiated on a CPAP or other NIV in the past. Patient has not had a sleep study. Patient works as a web developer programmer and denies any exposure to asbestos or TB. Did discuss CODE STATUS with the patient. Patient was unaware that people can get that sick with just COVID. After extensive conversation, patient has agreed to a full CODE STATUS and wants to do anything that needs to be done. I am not ready to . Review of systems otherwise negative from a constitutional, HEENT, respiratory, cardiovascular, GI, genitourinary, musculoskeletal, skin, neurologic, psychiatric and hematologic system unless stated above. [facility] Medical History Carpal tunnel syndrome Empyema lung Hernia HTN (hypertension) Liver abscess due to bacteria Obesity Home Medications lisinopril 10 mg PO DAILY 04/09/21 [History Last Taken Unknown] Allergy/AdvReac Type Severity Reaction Status Date / Time No Known Allergies Allergy Verified 04/09/21 08:06 Surgical History History of cholecystectomy Social History Smoking Status: Never smoker ROS ROS Narrative See HPI Physical Exam Const alert, oriented x3, no apparent distress and healthy appearing General Appearance: cooperative and well developed Nutritional Appearance: obese HEENT normocephalic and moist oral mucous membranes Eyes PERRL, EOMs intact bilaterally and conjunctivae normal Neck nuchal rigidity, supple, no JVD, thyroid normal and no carotid bruits General: trachea midline Chest inspection of chest normal Chest: symmetrical chest wall rise; Negative for crepitus Resp normal respiratory effort, no retractions, no use of accessory muscles and clear to auscultation bilaterally Auscultation: Negative for rales, rhonchi or wheezes Cardio regular rate, regular rhythm, S1 normal heart sound, S2 normal heart sound, no murmurs, no rub and no gallops GI normal to inspection, nondistended, normoactive bowel sounds, soft to palpation, non-tender and non-distended Extremity no clubbing, cyanosis or edema Skin no rashes or lesions noted General Skin Exam: no breakdown Neuro oriented x3, CN's II-XII intact bilaterally, no focal motor deficits and no sensory deficits noted Sensorium / Orientation: awake and alert Speech: speech normal Psych thought process normal and affect normal Lab / Micro Data Result Diagrams: 04/12/21 08:58 04/12/21 08:58 Labs: Laboratory Results - last 24 hr 04/09/21 08:33: Diff Path Review Reviewed 04/12/21 08:58: WBC 6.6, RBC 4.44 L, Hgb 13.0, Hct 36.6 L, MCV 82.4, MCH 29.3, MCHC 35.5, RDW Std Deviation 38.0, RDW Coeff of [place] 12.5, Plt Count 195, MPV 8.9, Immature Gran % (Auto) 3.800 H, Neut % (Auto) 84.7 H, Lymph % (Auto) 6.2 L, [place] % (Auto) 5.0, Eos % (Auto) 0.0, Baso % (Auto) 0.3, Absolute Neuts (auto) 5.6, Absolute Lymphs (auto) 0.41 L, Nucleated RBC % 0 04/12/21 08:58: Sodium 135 L, Potassium 4.1, Chloride 104, Carbon Dioxide 23.0, Anion Gap 8, BUN 16, Creatinine 0.76, Estim Creat Clear Calc 89.91, Est GFR (MDRD) Af Amer 136, Est GFR (MDRD) Non-Af 112, BUN/Creatinine Ratio 21.2 H, Glucose 135 H, Calcium 8.0 L, Total Bilirubin 0.70, AST 85 H, ALT 87 H, Alkaline Phosphatase 46, Total Protein 6.3 L, Albumin 2.1 L, Globulin 4.2, Albumin/Globulin Ratio 0.5 L 04/12/21 12:45: D-Dimer Quant (PE/DVT) 1.50 H* 04/12/21 12:45: C-React Prot Ext Range 82.10 H 04/12/21 12:45: B-Natriuretic Peptide 141.9 H 04/12/21 12:45: Procalcitonin 0.12 H Micro: Microbiology 04/09/21 08:40 Blood Culture (Wb) - Anticubital Right Blood Culture - Preliminary No growth in 48 hours. 04/09/21 08:33 Blood Culture (Wb) - Anticubital Left Blood Culture - Preliminary No growth in 48 hours. Charges/Coding Visit Charges Inpatient E&M: 64004 Init Hosp L3 Procedures Hospitalists Procedures: 97729 Advncd Care Plan 30 Min
--- NOTE | 2021-04-12 14:56 | CON.PCM.ID_ITS ---
Assessment & Plan Assessment/Plan (1) COVID-19: PLAN: Unvaccinated, sx started 03/29. Recommended vaccine after discha rge. Isolate until 04/18/21. On dex. Worsening O2, now on airvo. Reviewed EUA and risks/benefits, we agree to start baricitinib. Will check basic labs, sputum cx. Will follow, thank you (2) Acute respiratory failure with hypoxia: HPI Consult Data Date of Consult: 04/12/21 HPI Narrative HPI Narrative: PAPITO MEDINA, is a 61 M who presented 04/09 with progressive cough, aches, fever, chills, headache. Sx started 03/29. is vaccinated, recently sick with URI and loss of taste. Pt is unvaccinated. Admitted on dex. Worsening O2, ID consulted. Full ROS performed and neg except as noted above. [facility] Medical History Carpal tunnel syndrome Empyema lung Hernia HTN (hypertension) Liver abscess due to bacteria Obesity Home Medications lisinopril 10 mg PO DAILY 04/09/21 [History Last Taken Unknown] Allergy/AdvReac Type Severity Reaction Status Date / Time No Known Allergies Allergy Verified 04/09/21 08:06 Surgical History History of cholecystectomy Social History Smoking Status: Never smoker Physical Exam Const alert, oriented x3 and no apparent distress General Appearance: cooperative Exam Limitations: no limitations HEENT normocephalic and head/scalp atraumatic Eyes PERRL and EOMs intact bilaterally Neck supple and No nodes Resp Auscultation: diminished lung sounds Cardio regular rate and regular rhythm GI normal to inspection, nondistended, normoactive bowel sounds Extremity no clubbing, cyanosis or edema Skin no rashes or lesions noted Neuro CN's II-XII intact bilaterally Lab / Micro Data Result Diagrams: 04/12/21 08:58 04/12/21 08:58 Labs: Laboratory Results - last 24 hr 04/09/21 08:33: Diff Path Review Reviewed 04/12/21 08:58: WBC 6.6, RBC 4.44 L, Hgb 13.0, Hct 36.6 L, MCV 82.4, MCH 29.3, MCHC 35.5, RDW Std Deviation 38.0, RDW Coeff of [place] 12.5, Plt Count 195, MPV 8.9, Immature Gran % (Auto) 3.800 H, Neut % (Auto) 84.7 H, Lymph % (Auto) 6.2 L, [place] % (Auto) 5.0, Eos % (Auto) 0.0, Baso % (Auto) 0.3, Absolute Neuts (auto) 5.6, Absolute Lymphs (auto) 0.41 L, Nucleated RBC % 0 04/12/21 08:58: Sodium 135 L, Potassium 4.1, Chloride 104, Carbon Dioxide 23.0, Anion Gap 8, BUN 16, Creatinine 0.76, Estim Creat Clear Calc 89.91, Est GFR (MDRD) Af Amer 136, Est GFR (MDRD) Non-Af 112, BUN/Creatinine Ratio 21.2 H, Glucose 135 H, Calcium 8.0 L, Total Bilirubin 0.70, AST 85 H, ALT 87 H, Alkaline Phosphatase 46, Total Protein 6.3 L, Albumin 2.1 L, Globulin 4.2, Albumin/Globulin Ratio 0.5 L 04/12/21 12:45: D-Dimer Quant (PE/DVT) 1.50 H* 04/12/21 12:45: C-React Prot Ext Range 82.10 H 04/12/21 12:45: B-Natriuretic Peptide 141.9 H 04/12/21 12:45: Procalcitonin 0.12 H Micro: Microbiology 04/09/21 08:40 Blood Culture (Wb) - Anticubital Right Blood Culture - Preliminary No growth in 48 hours. 04/09/21 08:33 Blood Culture (Wb) - Anticubital Left Blood Culture - Preliminary No growth in 48 hours.
[2021-04-12] MEDS: Furosemide 40 MG/4 ML Vial IV (16:41)
--- NOTE | 2021-04-12 17:09 | PN.HOSP_ITS ---
Subjective Subjective Well however he has had significant worsening in his oxygen requirements and is currently on air Vo will consult infectious disease and pulmonology for evaluation Objective Data Objective Data Vital Signs: Vital Signs Temp Pulse Resp BP Pulse Ox 97.9 F 72 24 H 117/72 94 04/12/21 14:12 04/12/21 14:12 04/12/21 14:12 04/12/21 14:12 04/12/21 16:42 Oxygen Flow Rate (L/min) [At 1.5 REST with Oxygen] Oxygen Flow Rate (L/min) [ 6 AMBULATING with Oxygen #1] Oxygen Flow Rate (L/min) [ 0 AMBULATING on Room Air] Oxygen Flow Rate (L/min) [At 0 REST on Room Air] Oxygen Flow Rate (L/min) 55 Oxygen Delivery Method Airvo Weight: 226 lb 15.983 oz Body Mass Index (BMI) 37.8 Intake & Output: Intake and Output for Last 24 Hours 04/11/21 04/12/21 04/13/21 03:59 03:59 03:59 Intake Total 1780.0 / 1780.0 1010 / 1010 Output Total 600 / 600 Balance 1780.0 / 1780.0 410 / 410 Lab / Micro Data Result Diagrams: 04/12/21 08:58 04/12/21 08:58 Labs: Laboratory Results - last 24 hr 04/09/21 08:33: Diff Path Review Reviewed 04/12/21 08:58: WBC 6.6, RBC 4.44 L, Hgb 13.0, Hct 36.6 L, MCV 82.4, MCH 29.3, MCHC 35.5, RDW Std Deviation 38.0, RDW Coeff of [place] 12.5, Plt Count 195, MPV 8.9, Immature Gran % (Auto) 3.800 H, Neut % (Auto) 84.7 H, Lymph % (Auto) 6.2 L, [place] % (Auto) 5.0, Eos % (Auto) 0.0, Baso % (Auto) 0.3, Absolute Neuts (auto) 5 .6, Absolute Lymphs (auto) 0.41 L, Nucleated RBC % 0 04/12/21 08:58: Sodium 135 L, Potassium 4.1, Chloride 104, Carbon Dioxide 23.0, Anion Gap 8, BUN 16, Creatinine 0.76, Estim Creat Clear Calc 89.91, Est GFR (MDRD) Af Amer 136, Est GFR (MDRD) Non-Af 112, BUN/Creatinine Ratio 21.2 H, Glucose 135 H, Calcium 8.0 L, Total Bilirubin 0.70, AST 85 H, ALT 87 H, Alkaline Phosphatase 46, Total Protein 6.3 L, Albumin 2.1 L, Globulin 4.2, Albumin/Globulin Ratio 0.5 L 04/12/21 12:45: D-Dimer Quant (PE/DVT) 1.50 H* 04/12/21 12:45: C-React Prot Ext Range 82.10 H 04/12/21 12:45: B-Natriuretic Peptide 141.9 H 04/12/21 12:45: Procalcitonin 0.12 H Micro: Microbiology 04/09/21 08:40 Blood Culture (Wb) - Anticubital Right Blood Culture - Preliminary No growth in 48 hours. 04/09/21 08:33 Blood Culture (Wb) - Anticubital Left Blood Culture - Preliminary No growth in 48 hours. 04/09/21 11:51 Nasal Secretion SARS-CoV-2 Antigen (Rapid) - Final SARS-CoV-2 (COVID 19) Physical Exam Const alert, oriented x3 and no apparent distress General Appearance: cooperative HEENT normocephalic and moist oral mucous membranes Eyes PERRL, EOMs intact bilaterally and conjunctivae normal Neck supple and no JVD Resp normal respiratory effort, no retractions, no use of accessory muscles and clear to auscultation bilaterally Auscultation: Negative for crackles, rales, rhonchi or wheezes Cardio regular rate, regular rhythm, S1 normal heart sound, S2 normal heart sound and no murmurs GI soft to palpation, non-tender and non-distended; Negative for hepatosplenomegaly Extremity no clubbing, cyanosis or edema Skin no rashes or lesions noted Neuro no focal motor deficits and no sensory deficits noted Psych affect normal Appearance: appropriate Assessment & Plan Assessment/Plan (1) COVID-19: (2) Acute respiratory failure with hypoxia: PLAN: 1. Acute hypoxic respiratory failure secondary to COVID-19 pneumonia ?Currently on air Vo ?he has significant worsening of oxygen requirements from about [address] to AirVo ?Infectious disease recommends baricitinib, continue with syndrome ?Symptom onset on 03/29/2021 ?D-dimer was elevated to 2.[address] of the chest was negative for PE ?Appreciate pulmonology input 2. HTN ?Blood pressure stable ?Continue with lisinopril DVT: Lovenox Charges/Coding Visit Charges Inpatient E&M: 96259 Subs Hosp L2
[2021-04-13] VITALS (8 sets, daily range): BP systolic 128–136; BP diastolic 62–81; PULSE 63–79; RESP 18–24; TEMP 36.5–36.8; O2SAT 90–93
[2021-04-13 07:58] LABS: Absolute Lymphocyte Count 0.57 X10^3/uL (0.83-4.51); Absolute Neutrophil Count 5.3 X10^3/uL (2.0-7.7); Basophil# 0.02 X10^3/uL; Basophil% 0.3 % (0-1); Hematocrit 36.5 % (40-54); Lymphocyte # 0.57 X10^3/ul (0.83-4.51); Lymphocyte % 8.5 % (19-41); Mean Corp Hgb Conc 35.6 g/dL (32-36); Mean Corpuscular Hgb 29.2 pg (27.0-32.0); Mean Platelet Vol. 8.9 fl (6.2-12.0); Monocyte% 7.5 % (0-10); NRBC Flagged by Analyzer 0 % (0-5); Neutrophil # 5.28 X10^3/uL (2.7-7.7); Neutrophil % 78.8 % (47-70); POSITIVE DIFFERENTIAL YES; POSITIVE MORPHOLOGY YES; Platelet Count 239 K/mm3 (150-450); RBC Distribution Width CV 12.5 % (11.6-14.6); RBC Distribution Width SD 37.5 fl (35.1-43.9); Red Blood Count 4.45 M/mm3 (4.6-6.2); White Blood Count 6.7 K/mm3 (4.4-11.0)
[2021-04-13 08:03] LABS: Differential Indicated SCAN CRITERIA MET
[2021-04-13 08:41] LABS: Differential Comment SCANNED
[2021-04-13 08:43] LABS: ALB/GLOB Ratio 0.5 RATIO (0.9-2.4); AST(SGOT) 60 U/L (15-37); Alanine Aminotransfer ALT/SGPT 99 U/L (16-61); Albumin, Serum 2.2 g/dL (3.2-5.0); Alkaline Phosphatase 50 U/L (45-117); Anion Gap 11 (5-15); BUN 11 mg/dL (7-18); Calcium,Total 6.5 mg/dL (8.5-10.1); Chloride 100 mmol/L (98-107); Creatinine, Serum 0.69 mg/dL (0.70-1.30); EST Glomerular Filtration Rate 125 mL/min (>60); Est Glom Filt Rate - Afr Amer 151 mL/min (>60); Estimated Creatinine Clearance 99.03 ml/min; Globulin 4.2 g/dL (2.2-4.2); Glucose 102 mg/dL (74-106); Potassium 4.1 mmol/L (3.5-5.1); Protein, Total 6.4 g/dL (6.4-8.2); Sodium Level 135 mmol/L (136-145)
[2021-04-13] MEDS: dexAMETHasone 10 MG/ML Vial 6 MG IV (09:40)
[2021-04-13] MEDS: Enoxaparin 40 MG/0.4 ML Syringe SC (09:40)
[2021-04-13] MEDS: Lisinopril 10 MG Tablet PO (09:40)
[2021-04-13] MEDS: 0.9% Saline Lock 10 ML Syringe IV ×2 (09:41→16:01)
--- NOTE | 2021-04-13 15:41 | PN.CC_ITS ---
Assessment & Plan Assessment/Plan (1) Acute respiratory failure with hypoxia: (2) COVID-19: PLAN: RECOMMENDATIONS: 1. Continue Decadron (04/20/2021) and baricitinib (04/25/2021) 2. Encourage prone positioning, Acapella and incentive spirometer 3. May benefit from BiPAP overnight if develops hypoxia with sleep 4. Intermittent diuretics as necessary to maintain euvolemia. Challenge t jazmin 5. Okay to continue with prophylactic dose Lovenox 6. Continue full CODE STATUS IMPRESSIONS: 1. Acute hypoxic respiratory failure secondary to COVID-19 Patient is doing okay at this time. Patient is almost 2 weeks from initial symptoms. However, CRP is still significantly elevated. Patient has been seen by infectious disease. Complete baricitinib and Decadron therapy as described above. Agree with Remdesivir avoidance given delayed presentation. Patient is positive almost 5 L over the course of the hospitalization. Patient will be given Lasix therapy again. No fevers have been noted and pro calcitonin is only mildly elevated. Agree with monitoring off of antibiotics for now. Cannot exclude the need for BiPAP with sleep given patient's history of snoring and possible undiagnosed sleep apnea. Patient did not have a PE on CTA, so prophylactic dosing of Lovenox is appropriate. Patient will need a walking oximetry prior to discharge. Patient does have a history of empyema, so may have an element of restriction, but no PFTs are available for review. 2. Obesity/nonvaccinated status/hypertension Complicates care, management, recovery and prognosis. Discussed with the patient for 16 minutes on the importance of CODE STATUS, reviewing the various options and determining the best for him. Patient with very poor insight into his overall condition and potential prognosis. Patient is a full code at this time. Okay to continue with baseline antihypertensives at this time. Subjective Subjective Patient did okay overnight. Patient has been getting out of bed and sitting in the chair. Patient is reporting some dyspnea on exertion, but overall feels subjectively slightly improved compared to yesterday. Patient is not reporting any chest pain. Patient reports minimal production with coughing. Objective Data Objective Data Vital Signs: Vital Signs Temp Pulse Resp BP Pulse Ox 36.5 C L 74 24 H 136/81 H 90 04/13/21 14:49 04/13/21 14:49 04/13/21 14:49 04/13/21 14:49 04/13/21 14:49 Oxygen Flow Rate (L/min) [At 1.5 REST with Oxygen] Oxygen Flow Rate (L/min) [ 6 AMBULATING with Oxygen #1] Oxygen Flow Rate (L/min) [ 0 AMBULATING on Room Air] Oxygen Flow Rate (L/min) [At 0 REST on Room Air] Oxygen Flow Rate (L/min) 55 Oxygen Delivery Method Airvo Weight: 102.965 kg Body Mass Index (BMI) 37.8 Intake & Output: Intake and Output for Last 24 Hours 04/11/21 04/12/21 04/13/21 23:59 23:59 23:59 Intake Total 1010 / 1010 Output Total 400 / 600 1000 / 1000 Balance 610 / 410 -1000 / -1000 Lab / Micro Data Result Diagrams: 04/13/21 07:10 04/13/21 07:10 Labs: Laboratory Results - last 24 hr 04/13/21 07:10: WBC 6.7, RBC 4.45 L, Hgb 13.0, Hct 36.5 L, MCV 82.0, MCH 29.2, MCHC 35.6, RDW Std Deviation 37.5, RDW Coeff of [place] 12.5, Plt Count 239, MPV 8.9, Immature Gran % (Auto) 4.900 H, Neut % (Auto) 78.8 H, Lymph % (Auto) 8.5 L, [place] % (Auto) 7.5, Eos % (Auto) 0.0, Baso % (Auto) 0.3, Absolute Neuts (auto) 5.3, Absolute Lymphs (auto) 0.57 L, Nucleated RBC % 0, Differential Comment SCANNED 04/13/21 07:10: Sodium 135 L, Potassium 4.1, Chloride 100, Carbon Dioxide 24.0, Anion Gap 11, BUN 11, Creatinine 0.69 L, Estim Creat Clear Calc 99.03, Est GFR (MDRD) Af Amer 151, Est GFR (MDRD) Non-Af 125, BUN/Creatinine Ratio 16.0, Glucose 102, Calcium 6.5 L*, Total Bilirubin 0.80, AST 60 H, ALT 99 H, Alkaline Phosphatase 50, Total Protein 6.4, Albumin 2.2 L, Globulin 4.2, Albumin/Globulin Ratio 0.5 L Micro: Microbiology 04/09/21 08:40 Blood Culture (Wb) - Anticubital Right Blood Culture - Preliminary No growth in 48 hours. 04/09/21 08:33 Blood Culture (Wb) - Anticubital Left Blood Culture - Preliminary No growth in 48 hours. 04/09/21 11:51 Nasal Secretion SARS-CoV-2 Antigen (Rapid) - Final SARS-CoV-2 (COVID 19) Physical Exam Const alert, oriented x3, no apparent distress and healthy appearing Constitutional Narrative: On Airvo during my evaluation General Appearance: cooperative and well developed Nutritional Appearance: obese HEENT normocephalic and moist oral mucous membranes Eyes PERRL, EOMs intact bilaterally and conjunctivae normal Neck nuchal rigidity, supple, no JVD, thyroid normal and no carotid bruits General: trachea midline Chest inspection of chest normal Chest: symmetrical chest wall rise; Negative for crepitus Resp normal respiratory effort, no retractions, no use of accessory muscles and clear to auscultation bilaterally Auscultation: Negative for rales, rhonchi or wheezes Cardio regular rate, regular rhythm, S1 normal heart sound, S2 normal heart sound, no murmurs, no rub and no gallops GI normal to inspection, nondistended, normoactive bowel sounds, soft to palpation, non-tender and non-distended Extremity no clubbing, cyanosis or edema Skin no rashes or lesions noted General Skin Exam: no breakdown Neuro oriented x3, CN's II-XII intact bilaterally, no focal motor deficits and no sensory deficits noted Sensorium / Orientation: awake and alert Speech: speech normal Psych thought process normal and affect normal Charges/Coding Visit Charges Inpatient E&M: 75303 Subs Hosp L3
[2021-04-13] MEDS: Furosemide 40 MG/4 ML Vial IV (16:01)
--- NOTE | 2021-04-13 19:53 | PN.HOSP_ITS ---
Subjective Subjective Remains unchanged, no issues overnight. Continue with air Vo. Objective Data Objective Data Vital Signs: Vital Signs Temp Pulse Resp BP Pulse Ox 97.7 F L 74 24 H 136/81 H 90 04/13/21 14:49 04/13/21 14:49 04/13/21 14:49 04/13/21 14:49 04/13/21 14:49 Oxygen Flow Rate (L/min) [At 1.5 REST with Oxygen] Oxygen Flow Rate (L/min) [ 6 AMBULATING with Oxygen #1] Oxygen Flow Rate (L/min) [ 0 AMBULATING on Room Air] Oxygen Flow Rate (L/min) [At 0 REST on Room Air] Oxygen Flow Rate (L/min) 55 Oxygen Delivery Method Airvo Weight: 226 lb 15.983 oz Body Mass Index (BMI) 37.8 Intake & Output: Intake and Output for Last 24 Hours 04/12/21 04/13/21 04/14/21 03:59 03:59 03:59 Intake Total 1010 / 1010 Output Total 600 / 600 800 / 800 Balance 410 / 410 -800 / -800 Lab / Micro Data Result Diagrams: 04/13/21 07:10 04/13/21 07:10 Labs: Laboratory Results - last 24 hr 04/13/21 07:10: WBC 6.7, RBC 4.45 L, Hgb 13.0, Hct 36.5 L, MCV 82.0, MCH 29.2, MCHC 35.6, RDW Std Deviation 37.5, RDW Coeff of [place] 12.5, Plt Count 239, MPV 8. 9, Immature Gran % (Auto) 4.900 H, Neut % (Auto) 78.8 H, Lymph % (Auto) 8.5 L, [place] % (Auto) 7.5, Eos % (Auto) 0.0, Baso % (Auto) 0.3, Absolute Neuts (auto) 5.3, Absolute Lymphs (auto) 0.57 L, Nucleated RBC % 0, Differential Comment SCANNED 04/13/21 07:10: Sodium 135 L, Potassium 4.1, Chloride 100, Carbon Dioxide 24.0, Anion Gap 11, BUN 11, Creatinine 0.69 L, Estim Creat Clear Calc 99.03, Est GFR (MDRD) Af Amer 151, Est GFR (MDRD) Non-Af 125, BUN/Creatinine Ratio 16.0, Glucose 102, Calcium 6.5 L*, Total Bilirubin 0.80, AST 60 H, ALT 99 H, Alkaline Phosphatase 50, Total Protein 6.4, Albumin 2.2 L, Globulin 4.2, Albumin/Globulin Ratio 0.5 L Micro: Microbiology 04/09/21 08:40 Blood Culture (Wb) - Anticubital Right Blood Culture - Preliminary No growth in 48 hours. 04/09/21 08:33 Blood Culture (Wb) - Anticubital Left Blood Culture - Preliminary No growth in 48 hours. 04/09/21 11:51 Nasal Secretion SARS-CoV-2 Antigen (Rapid) - Final SARS-CoV-2 (COVID 19) Physical Exam Narrative Const alert, oriented x3 and no apparent distress General Appearance: cooperative HEENT normocephalic and moist oral mucous membranes Eyes PERRL, EOMs intact bilaterally and conjunctivae normal Neck supple and no JVD Resp normal respiratory effort, no retractions, no use of accessory muscles and clear to auscultation bilaterally Auscultation: Negative for crackles, rales, rhonchi or wheezes Cardio regular rate, regular rhythm, S1 normal heart sound, S2 normal heart sound and no murmurs GI soft to palpation, non-tender and non-distended; Negative for hepatosplenomegaly Extremity no clubbing, cyanosis or edema Skin no rashes or lesions noted Neuro no focal motor deficits and no sensory deficits noted Psych affect normal Appearance: appropriate Assessment & Plan Assessment/Plan (1) COVID-19: (2) Acute respiratory failure with hypoxia: PLAN: 1. Acute hypoxic respiratory failure secondary to COVID-19 pneumonia ?Currently on air Vo ?he has significant worsening of oxygen requirements from about [address] AirVo ?Infectious disease recommends baricitinib, continue with syndrome ?Symptom onset on 03/29/2021 ?D-dimer was elevated to 2.[address] of the chest was negative for PE ?Appreciate pulmonology input 2. HTN ?Blood pressure stable ?Continue with lisinopril DVT: Lovenox Charges/Coding Visit Charges Inpatient E&M: 87900 Subs Hosp L2
[2021-04-14] VITALS (13 sets, daily range): BP systolic 116–156; BP diastolic 65–89; PULSE 62–82; RESP 16–28; TEMP 36.7–37; O2SAT 90–96
[2021-04-14 07:16] LABS: Absolute Lymphocyte Count 0.56 X10^3/uL (0.83-4.51); Absolute Neutrophil Count 8.1 X10^3/uL (2.0-7.7); Basophil# 0.05 X10^3/uL; Basophil% 0.5 % (0-1); Hematocrit 40.7 % (40-54); Hemoglobin 13.9 g/dL (13.0-16.5); Lymphocyte # 0.56 X10^3/ul (0.83-4.51); Lymphocyte % 5.8 % (19-41); Mean Corp Hgb Conc 34.2 g/dL (32-36); Mean Corpuscular Hgb 28.5 pg (27.0-32.0); Mean Corpuscular Volume 83.4 fL (80-94); Mean Platelet Vol. 8.8 fl (6.2-12.0); Monocyte# 0.54 X10^3/uL; Monocyte% 5.6 % (0-10); NRBC Flagged by Analyzer 0 % (0-5); Neutrophil # 8.12 X10^3/uL (2.7-7.7); Neutrophil % 83.9 % (47-70); POSITIVE DIFFERENTIAL YES; Platelet Count 320 K/mm3 (150-450); RBC Distribution Width CV 12.6 % (11.6-14.6); RBC Distribution Width SD 37.9 fl (35.1-43.9); Red Blood Count 4.88 M/mm3 (4.6-6.2); White Blood Count 9.7 K/mm3 (4.4-11.0)
[2021-04-14 07:25] LABS: Differential Indicated SCAN CRITERIA MET
[2021-04-14 07:45] LABS: ALB/GLOB Ratio 0.6 RATIO (0.9-2.4); AST(SGOT) 45 U/L (15-37); Alanine Aminotransfer ALT/SGPT 96 U/L (16-61); Albumin, Serum 2.6 g/dL (3.2-5.0); Alkaline Phosphatase 53 U/L (45-117); Anion Gap 10 (5-15); BUN 23 mg/dL (7-18); BUN/Creat Ratio 30.7 RATIO (10-20); Calcium,Total 8.1 mg/dL (8.5-10.1); Chloride 98 mmol/L (98-107); Creatinine, Serum 0.75 mg/dL (0.70-1.30); EST Glomerular Filtration Rate 113 mL/min (>60); Est Glom Filt Rate - Afr Amer 137 mL/min (>60); Estimated Creatinine Clearance 91.11 ml/min; Globulin 4.3 g/dL (2.2-4.2); Glucose 92 mg/dL (74-106); Potassium 3.8 mmol/L (3.5-5.1); Protein, Total 6.9 g/dL (6.4-8.2); Sodium Level 136 mmol/L (136-145)
[2021-04-14] MEDS: Enoxaparin 40 MG/0.4 ML Syringe SC (08:58)
[2021-04-14] MEDS: dexAMETHasone 10 MG/ML Vial 6 MG IV (08:59)
[2021-04-14] MEDS: Lisinopril 10 MG Tablet PO (08:59)
[2021-04-14] MEDS: 0.9% Saline Lock 10 ML Syringe IV ×2 (08:59→11:14)
[2021-04-14] MEDS: Furosemide 40 MG/4 ML Vial IV (11:14)
[2021-04-14] MEDS: Potassium Chloride Oral Tablet 20 MEQ 40 MEQ PO (11:14)
--- NOTE | 2021-04-14 12:40 | PN.CC_ITS ---
Assessment & Plan Assessment/Plan (1) Acute respiratory failure with hypoxia: (2) COVID-19: PLAN: RECOMMENDATIONS: 1. Continue Decadron (04/20/2021) and baricitinib (04/25/2021) 2. Encourage prone positioning, Acapella and incentive spirometer 3. May benefit from BiPAP overnight if develops worsening hypoxia with sleep 4. Intermittent diuretics as necessary to maintain euvolemia. Challenge today 5. Okay to continue with prophylactic dose Lovenox 6. Continue full CODE STATUS IMPRESSIONS: 1. Acute hypoxic respiratory failure secondary to COVID-19 Patient is doing okay at this time. Patient is almost 2 weeks from init ial symptoms. However, CRP is still significantly elevated. Patient has been seen by infectious disease. Complete baricitinib and Decadron therapy as described above. Agree with Remdesivir avoidance given delayed presentation. Patient is positive almost 5 L over the course of the hospitalization, so we will continue to challenge with Lasix as tolerated. No fevers have been noted and pro calcitonin initially is only mildly elevated. Agree with monitoring off of antibiotics for now. Cannot exclude the need for BiPAP with sleep given patient's history of snoring and possible undiagnosed sleep apnea. Patient did not have a PE on CTA, so prophylactic dosing of Lovenox is appropriate. Patient does have a history of empyema, so may have an element of restriction, but no PFTs are available for review. With worsening oxygenation status, cannot exclude the need for transition to BiPAP in the next 24 hours 2. Obesity/nonvaccinated status/hypertension Complicates care, management, recovery and prognosis. Patient with very poor insight into his overall condition and potential prognosis. Patient is a full code at this time. Okay to continue with baseline antihypertensives at this time. Subjective Subjective Patient did okay overnight. No acute issues were reported. Patient overall feels subjectively unchanged compared to previous. Patient has not required BiPAP rescue in the last 24 hours. Objective Data Objective Data Vital Signs: Vital Signs Temp Pulse Resp BP Pulse Ox 36.7 C 77 18 124/72 H 93 04/14/21 09:10 04/14/21 09:10 04/14/21 09:10 04/14/21 09:10 04/14/21 09:10 Oxygen Flow Rate (L/min) [At 1.5 REST with Oxygen] Oxygen Flow Rate (L/min) [ 6 AMBULATING with Oxygen #1] Oxygen Flow Rate (L/min) [ 0 AMBULATING on Room Air] Oxygen Flow Rate (L/min) [At 0 REST on Room Air] Oxygen Flow Rate (L/min) 55 Oxygen Delivery Method Airvo Weight: 102.965 kg Body Mass Index (BMI) 37.8 Intake & Output: Intake and Output for Last 24 Hours 04/12/21 04/13/21 04/14/21 23:59 23:59 23:59 Output Total 1000 / 1000 Balance -1000 / -1000 Lab / Micro Data Result Diagrams: 04/14/21 05:45 04/14/21 05:45 Labs: Laboratory Results - last 24 hr 04/14/21 05:45: Sodium 136, Potassium 3.8, Chloride 98, Carbon Dioxide 28.0, Anion Gap 10, BUN 23 H, Creatinine 0.75, Estim Creat Clear Calc 91.11, Est GFR (MDRD) Af Amer 137, Est GFR (MDRD) Non-Af 113, BUN/Creatinine Ratio 30.7 H, Glucose 92, Calcium 8.1 L, Total Bilirubin 1.00, AST 45 H, ALT 96 H, Alkaline Phosphatase 53, Total Protein 6.9, Albumin 2.6 L, Globulin 4.3 H, Albumin/Globulin Ratio 0.6 L 04/14/21 05:45: WBC 9.7, RBC 4.88, Hgb 13.9, Hct 40.7, MCV 83.4, MCH 28.5, MCHC 34.2, RDW Std Deviation 37.9, RDW Coeff of [place] 12.6, Plt Count 320, MPV 8.8, Immature Gran % (Auto) 4.200 H, Neut % (Auto) 83.9 H, Lymph % (Auto) 5.8 L, [place] % (Auto) 5.6, Eos % (Auto) 0.0, Baso % (Auto) 0.5, Absolute Neuts (auto) 8.1 H, Absolute Lymphs (auto) 0.56 L, Nucleated RBC % 0, Differential Comment COMMENT Micro: Microbiology 04/09/21 08:33 Blood Culture (Wb) - Anticubital Left Blood Culture - Final No growth in 5 days. 04/09/21 08:40 Blood Culture (Wb) - Anticubital Right Blood Culture - Final No growth in 5 days. 04/09/21 11:51 Nasal Secretion SARS-CoV-2 Antigen (Rapid) - Final SARS-CoV-2 (COVID 19) Physical Exam Const alert, oriented x3, no apparent distress and healthy appearing Constitutional Narrative: On Airvo, sitting in the chair, during my evaluation General Appearance: cooperative and well developed Nutritional Appearance: obese HEENT normocephalic and moist oral mucous membranes Eyes PERRL, EOMs intact bilaterally and conjunctivae normal Neck nuchal rigidity, supple, no JVD, thyroid normal and no carotid bruits General: trachea midline Chest inspection of chest normal Chest: symmetrical chest wall rise; Negative for crepitus Resp normal respiratory effort, no retractions, no use of accessory muscles and clear to auscultation bilaterally Auscultation: Negative for rales, rhonchi or wheezes Cardio regular rate, regular rhythm, S1 normal heart sound, S2 normal heart sound, no murmurs, no rub and no gallops GI normal to inspection, nondistended, normoactive bowel sounds, soft to palpation, non-tender and non-distended Extremity no clubbing, cyanosis or edema Skin no rashes or lesions noted General Skin Exam: no breakdown Neuro oriented x3, CN's II-XII intact bilaterally, no focal motor deficits and no s ensory deficits noted Sensorium / Orientation: awake and alert Speech: speech normal Psych thought process normal and affect normal Charges/Coding Visit Charges Inpatient E&M: 65448 Subs Hosp L3
--- NOTE | 2021-04-14 13:46 | PCM.PN.ID ---
Physical Exam Narrative Feeling better, no fever, no sputum, no n/v/d. Const alert and no apparent distress General Appearance: cooperative Resp clear to auscultation bilaterally Auscultation: diminished lung sounds Cardio regular rate and regular rhythm GI soft to palpation, non-tender and non-distended Skin no rashes or lesions noted ID ID: Route of nutrition/ use of supplements: [] Nutritional Intake: [] IV Site: [] Mena Catheter: [] Assessment & Plan Assessment/Plan (1) COVID-19: PLAN: Unvaccinated, sx started 03/29. Recommended vaccine after discharge. Isolate until 04/18/21. On dex, baricitinib. Reviewed labs, feeling better, exam improved. Will follow (2) Acute respiratory failure with hypoxia:
--- NOTE | 2021-04-14 16:15 | PN.HOSP_ITS ---
Subjective Subjective Doing well, breathing well but he is does need 90% FiO2 on his Airvo and is at 60 L/min May need to advance to BiPAP if he requires more as he is only satting 90% Objective Data Objective Data Vital Signs: Vital Signs Temp Pulse Resp BP Pulse Ox 98.6 F 82 18 116/65 93 04/14/21 13:48 04/14/21 13:48 04/14/21 13:48 04/14/21 13:48 04/14/21 13:48 Oxygen Flow Rate (L/min) [At 1.5 REST with Oxygen] Oxygen Flow Rate (L/min) [ 6 AMBULATING with Oxygen #1] Oxygen Flow Rate (L/min) [ 0 AMBULATING on Room Air] Oxygen Flow Rate (L/min) [At 0 REST on Room Air] Oxygen Flow Rate (L/min) 55 Oxygen Delivery Method Airvo Weight: 226 lb 15.983 oz Body Mass Index (BMI) 37.8 Intake & Output: Intake and Output for Last 24 Hours 04/13/21 04/14/21 04/15/21 03:59 03:59 03:59 Output Total 800 / 800 Balance -800 / -800 Lab / Micro Data Result Diagrams: 04/14/21 05:45 04/14/21 05:45 Labs: Laboratory Results - last 24 hr 04/14/21 05:45: Sodium 136, Potassium 3.8, Chloride 98, Carbon Dioxide 28.0, Anion Gap 10, BUN 23 H, Creatinine 0.75, Estim Creat Clear Calc 91.11, Est GFR (MDRD) Af Amer 137, Est GFR (MDRD) Non-Af 113, BUN/Creatinine Ratio 30.7 H, Glucose 92, Calcium 8.1 L, Total Bilirubin 1.00, AST 45 H, ALT 96 H, Alkaline Phosphatase 53, Total Protein 6.9, Albumin 2.6 L, Globulin 4.3 H, Album in/Globulin Ratio 0.6 L 04/14/21 05:45: WBC 9.7, RBC 4.88, Hgb 13.9, Hct 40.7, MCV 83.4, MCH 28.5, MCHC 34.2, RDW Std Deviation 37.9, RDW Coeff of [place] 12.6, Plt Count 320, MPV 8.8, Immature Gran % (Auto) 4.200 H, Neut % (Auto) 83.9 H, Lymph % (Auto) 5.8 L, [place] % (Auto) 5.6, Eos % (Auto) 0.0, Baso % (Auto) 0.5, Absolute Neuts (auto) 8.1 H, Absolute Lymphs (auto) 0.56 L, Nucleated RBC % 0, Differential Comment COMMENT Micro: Microbiology 04/09/21 08:33 Blood Culture (Wb) - Anticubital Left Blood Culture - Final No growth in 5 days. 04/09/21 08:40 Blood Culture (Wb) - Anticubital Right Blood Culture - Final No growth in 5 days. 04/09/21 11:51 Nasal Secretion SARS-CoV-2 Antigen (Rapid) - Final SARS-CoV-2 (COVID 19) Physical Exam Narrative Const alert, oriented x3 and no apparent distress General Appearance: cooperative HEENT normocephalic and moist oral mucous membranes Eyes PERRL, EOMs intact bilaterally and conjunctivae normal Neck supple and no JVD Resp normal respiratory effort, no retractions, no use of accessory muscles and clear to auscultation bilaterally Auscultation: Negative for crackles, rales, rhonchi or wheezes Cardio regular rate, regular rhythm, S1 normal heart sound, S2 normal heart sound and no murmurs GI soft to palpation, non-tender and non-distended; Negative for hepatosplenomegaly Extremity no clubbing, cyanosis or edema Skin no rashes or lesions noted Neuro no focal motor deficits and no sensory deficits noted Psych affect normal Appearance: appropriate Assessment & Plan Assessment/Plan (1) COVID-19: (2) Acute respiratory failure with hypoxia: PLAN: 1. Acute hypoxic respiratory failure secondary to COVID-19 pneumonia ?Currently on air Vo ?he has significant worsening of oxygen requirements from about [address] to AirVo ?Infectious disease recommends baricitinib, continue with Decadron ?Symptom onset on 03/29/2021 ?D-dimer was elevated to 2.[address] of the chest was negative for PE ?Appreciate pulmonology input 2. HTN ?Blood pressure stable ?Continue with lisinopril DVT: Lovenox Charges/Coding Visit Charges Inpatient E&M: 97116 Subs Hosp L2
[2021-04-15] VITALS (14 sets, daily range): BP systolic 115–127; BP diastolic 57–77; PULSE 65–93; RESP 12–32; TEMP 36.3–37.2; O2SAT 90–98
[2021-04-15 06:55] LABS: Hematocrit 43.9 % (40-54); Hemoglobin 14.9 g/dL (13.0-16.5); Mean Corp Hgb Conc 33.9 g/dL (32-36); Mean Corpuscular Hgb 28.5 pg (27.0-32.0); Mean Corpuscular Volume 84.1 fL (80-94); Mean Platelet Vol. 8.6 fl (6.2-12.0); POSITIVE COUNT YES; POSITIVE MORPHOLOGY YES; Platelet Count 366 K/mm3 (150-450); RBC Distribution Width CV 12.7 % (11.6-14.6); RBC Distribution Width SD 38.4 fl (35.1-43.9); Red Blood Count 5.22 M/mm3 (4.6-6.2); White Blood Count 11.2 K/mm3 (4.4-11.0)
[2021-04-15 07:05] LABS: Differential Indicated MANUAL DIFF
[2021-04-15 07:29] LABS: ALB/GLOB Ratio 0.6 RATIO (0.9-2.4); AST(SGOT) 39 U/L (15-37); Alanine Aminotransfer ALT/SGPT 97 U/L (16-61); Albumin, Serum 2.7 g/dL (3.2-5.0); Alkaline Phosphatase 56 U/L (45-117); Anion Gap 8 (5-15); BUN 24 mg/dL (7-18); Calcium,Total 8.8 mg/dL (8.5-10.1); Chloride 99 mmol/L (98-107); EST Glomerular Filtration Rate 105 mL/min (>60); Est Glom Filt Rate - Afr Amer 127 mL/min (>60); Estimated Creatinine Clearance 85.42 ml/min; Globulin 4.7 g/dL (2.2-4.2); Glucose 96 mg/dL (74-106); Potassium 4.2 mmol/L (3.5-5.1); Protein, Total 7.4 g/dL (6.4-8.2); Sodium Level 134 mmol/L (136-145)
[2021-04-15 08:13] LABS: Eosinophil 1 % (0-5); Lymphocyte 5 % (19-41); Metamyelocyte 1 % (0-1); Monocyte 5 % (0-10); Myelocyte 2 % (0-0); Neutrophil-Band 1 % (0-5); Neutrophil-Segmented 85 % (47-70); Platelet Estimate ADEQUATE (ADEQ); Red Cell Morphology NORM C+C NORMAL (NORM C&C); Total Cells Counted 100 (MANUAL DIFF)
[2021-04-15 08:15] LABS: Absolute Neutrophil Count 9.6 X10^3/uL (2.0-7.7)
[2021-04-15 08:16] LABS: Absolute Lymphocyte Count 0.56 X10^3/uL (0.83-4.51)
[2021-04-15] MEDS: Enoxaparin 40 MG/0.4 ML Syringe SC (09:07)
[2021-04-15] MEDS: Lisinopril 10 MG Tablet PO (09:08)
[2021-04-15] MEDS: 0.9% Saline Lock 10 ML Syringe IV ×2 (09:08→11:11)
[2021-04-15] MEDS: dexAMETHasone 10 MG/ML Vial 6 MG IV (09:08)
[2021-04-15] MEDS: Furosemide 40 MG/4 ML Vial IV (11:11)
--- NOTE | 2021-04-15 11:33 | PCM.PN.HOSP ---
Subjective Subjective Maintaining his oxygen saturations on maximal settings for Airvo. We will attempt to encourage him to transition to BiPAP to see if we can improve recruitment. Would also recommend that he sleep with the BiPAP if he is able to tolerate during the day today Objective Data Objective Data Vital Signs: Vital Signs Temp Pulse Resp BP Pulse Ox 97.3 F L 91 32 H 127/73 H 95 04/15/21 09:06 04/15/21 09:36 04/15/21 09:36 04/15/21 09:06 04/15/21 09:36 Oxygen Flow Rate (L/min) [At 1.5 REST with Oxygen] Oxygen Flow Rate (L/min) [ 6 AMBULATING with Oxygen #1] Oxygen Flow Rate (L/min) [ 0 AMBULATING on Room Air] Oxygen Flow Rate (L/min) [At 0 REST on Room Air] Oxygen Flow Rate (L/min) 60 Oxygen Delivery Method Airvo Weight: 226 lb 15.983 oz Body Mass Index (BMI) 37.8 Lab / Micro Data Result Diagrams: 04/15/21 06:05 04/15/21 06:05 Labs: Laboratory Results - last 24 hr 04/15/21 06:05: Sodium 134 L, Potassium 4.2, Chloride 99, Carbon Dioxide 27.0, Anion Gap 8, BUN 24 H, Creatinine 0.80, Estim Creat Clear Calc 85.42, Est GFR (MDRD) Af Amer 127, Est GFR (MDRD) Non-Af 105, BUN/Creatinine Ratio 30.0 H, Glucose 96, Calcium 8.8, Total Bilirubin 1.00, AST 39 H, ALT 97 H, Alkaline Phosphatase 56, Total Protein 7.4, Albumin 2.7 L, Globulin 4.7 H, Albumin/Globulin Ratio 0.6 L 04/15/21 06:05: WBC 11.2 H, RBC 5.22, Hgb 14.9, Hct 43.9, MCV 84.1, MCH 28.5, MCHC 33.9, RDW Std Deviation 38.4, RDW Coeff of [place] 12.7, Plt Count 366, MPV 8.6, Neut % (Auto) Not Reportable, Absolute Neuts (auto) 9.6 H, Absolute Lymphs (auto) 0.56 L, Total Counted 100, Neutrophils % (Manual) 85 H, Band Neutrophils % 1, Lymphocytes % (Manual) 5 L, Monocytes % (Manual) 5, Eosinophils % (Manual) 1, Metamyelocytes % 1, Myelocytes % 2 H, Diff Path Review May foll, Platelet Estimate ADEQUATE, RBC Morphology NORM C+C Micro: Microbiology 04/09/21 08:33 Blood Culture (Wb) - Anticubital Left Blood Culture - Final No growth in 5 days. 04/09/21 08:40 Blood Culture (Wb) - Anticubital Right Blood Culture - Final No growth in 5 days. 04/09/21 11:51 Nasal Secretion SARS-CoV-2 Antigen (Rapid) - Final SARS-CoV-2 (COVID 19) Physical Exam Narrative Const alert, oriented x3 and no apparent distress General Appearance: cooperative HEENT normocephalic and moist oral mucous membranes Eyes PERRL, EOMs intact bilaterally and conjunctivae normal Neck supple and no JVD Resp normal respiratory effort, no retractions, no use of accessory muscles and clear to auscultation bilaterally Auscultation: Negative for crackles, rales, rhonchi or wheezes Cardio regular rate, regular rhythm, S1 normal heart sound, S2 normal heart sound and no murmurs GI soft to palpation, non-tender and non-distended; Negative for hepatosplenomegaly Extremity no clubbing, cyanosis or edema Skin no rashes or lesions noted Neuro no focal motor deficits and no sensory deficits noted Psych affect normal Appearance: appropriate Assessment & Plan Assessment/Plan (1) COVID-19: (2) Acute respiratory failure with hypoxia: PLAN: 1. Acute hypoxic respiratory failure secondary to COVID-19 pneumonia ?Currently on air Vo will attempt to transition to BiPAP and see how he tolerates ?he has significant worsening of oxygen requirements from about [address] to AirVo ?Infectious disease recommends baricitinib, continue with Decadron ?Symptom onset on 03/29/2021 ?D-dimer was elevated to 2.[address] of the chest was negative for PE ?Appreciate pulmonology input 2. HTN ?Blood pressure stable ?Continue with lisinopril DVT: Lovenox Charges/Coding Visit Charges Inpatient E&M: 58530 Subs Hosp L2
--- NOTE | 2021-04-15 11:57 | PCM.PN.INT ---
Assessment & Plan Assessment/Plan (1) Acute respiratory failure with hypoxia: (2) COVID-19: PLAN: RECOMMENDATIONS: 1. Continue Decadron (04/20/2021) and baricitinib (04/25/2021) 2. Encourage prone positioning, Acapella and incentive spirometer 3. Continue BiPAP with Airvo breaks as tolerated. Would continue BiPAP with sleep 4. Intermittent diuretics as necessary to maintain euvolemia. Challenge today 5. Okay to continue with prophylactic dose Lovenox 6. Continue full CODE STATUS IMPRESSIONS: 1. Acute hypoxic respiratory failure secondary to COVID-19 Patient is doing okay at this time. Patient is almost 2 weeks from initial symptoms. However, CRP is still significantly elevated. Patient has been seen by infectious disease. Complete baricitinib and Decadron therapy as described above. Agree with Remdesivir avoidance given delayed presentation. Patient is positive almost 5 L over the course of the hospitalization, so we will continue to challenge with Lasix as tolerated. No fevers have been noted and pro calcitonin initially is only mildly elevated. Agree with monitoring off of antibiotics for now. Given patient is now requiring BiPAP during the day, will would continue with sleep throughout the hospitalization. Patient did not have a PE on CTA, so prophylactic dosing of Lovenox is appropriate. Patient does have a history of empyema, so may have an element of restriction, but no PFTs are available for review. Cannot exclude the need for transfer to the intensive care unit in the next 48 to 72 hours. 2. Obesity/nonvaccinated status/hypertension Complicates care, management, recovery and prognosis. Patient with very poor insight into his overall condition and potential prognosis. Patient is a full code at this time. Okay to continue with baseline antihypertensives at this time. Subjective Subjective Patient did okay yesterday. However, this morning patient was desaturating despite high FiO2 by Airvo. Patient has been transitioned to BiPAP therapy. Patient feels more comfortable on the BiPAP and is only requiring 60% FiO2 to maintain saturations. Objective Data Objective Data Vital Signs: Vital Signs Temp Pulse Resp BP Pulse Ox 36.3 C L 91 32 H 127/73 H 95 04/15/21 09:06 04/15/21 09:36 04/15/21 09:36 04/15/21 09:06 04/15/21 09:36 Oxygen Flow Rate (L/min) [At 1.5 REST with Oxygen] Oxygen Flow Rate (L/min) [ 6 AMBULATING with Oxygen #1] Oxygen Flow Rate (L/min) [ 0 AMBULATING on Room Air] Oxygen Flow Rate (L/min) [At 0 REST on Room Air] Oxygen Flow Rate (L/min) 60 Oxygen Delivery Method Airvo Weight: 102.965 kg Body Mass Index (BMI) 37.8 Lab / Micro Data Result Diagrams: 04/15/21 06:05 04/15/21 06:05 Labs: Laboratory Results - last 24 hr 04/15/21 06:05: Sodium 134 L, Potassium 4.2, Chloride 99, Carbon Dioxide 27.0, Anion Gap 8, BUN 24 H, Creatinine 0.80, Estim Creat Clear Calc 85.42, Est GFR (MDRD) Af Amer 127, Est GFR (MDRD) Non-Af 105, BUN/Creatinine Ratio 30.0 H, Glucose 96, Calcium 8.8, Total Bilirubin 1.00, AST 39 H, ALT 97 H, Alkaline Phosphatase 56, Total Protein 7.4, Albumin 2.7 L, Globulin 4.7 H, Albumin/Globulin Ratio 0.6 L 04/15/21 06:05: WBC 11.2 H, RBC 5.22, Hgb 14.9, Hct 43.9, MCV 84.1, MCH 28.5, MCHC 33.9, RDW Std Deviation 38.4, RDW Coeff of [place] 12.7, Plt Count 366, MPV 8.6, Neut % (Auto) Not Reportable, Absolute Neuts (auto) 9.6 H, Absolute Lymphs (auto) 0.56 L, Total Counted 100, Neutrophils % (Manual) 85 H, Band Neutrophils % 1, Lymphocytes % (Manual) 5 L, Monocytes % (Manual) 5, Eosinophils % (Manual) 1, Metamyelocytes % 1, Myelocytes % 2 H, Diff Path Review August, Platelet Estimate ADEQUATE, RBC Morphology NORM C+C Micro: Microbiology 04/09/21 08:33 Blood Culture (Wb) - Anticubital Left Blood Culture - Final No growth in 5 days. 04/09/21 08:40 Blood Culture (Wb) - Anticubital Right Blood Culture - Final No growth in 5 days. 04/09/21 11:51 Nasal Secretion SARS-CoV-2 Antigen (Rapid) - Final SARS-CoV-2 (COVID 19) Physical Exam Const alert, oriented x3 and no apparent distress Constitutional Narrative: On BiPAP, sitting in the chair, during my evaluation General Appearance: cooperative and well developed Nutritional Appearance: obese HEENT normocephalic and moist oral mucous membranes Eyes PERRL, EOMs intact bilaterally and conjunctivae normal Neck nuchal rigidity, supple, no JVD, thyroid normal and no carotid bruits General: trachea midline Chest inspection of chest normal Chest: symmetrical chest wall rise; Negative for crepitus Resp Effort and Inspection: actively coughing dry Auscultation: diminished lung sounds; Negative for rales, rhonchi or wheezes Cardio regular rate, regular rhythm, S1 normal heart sound, S2 normal heart sound, no murmurs, no rub and no gallops GI normal to inspection, nondistended, normoactive bowel sounds, soft to palpation, non-tender and non-distended Extremity no clubbing, cyanosis or edema Skin no rashes or lesions noted General Skin Exam: no breakdown Neuro oriented x3, CN's II-XII intact bilaterally, no focal motor deficits and no sensory deficits noted Sensorium / Orientation: awake and alert Speech: speech normal Psych thought process normal and affect normal Charges/Coding Visit Charges Inpatient E&M: 50838 Subs Hosp L3
[2021-04-16] VITALS (12 sets, daily range): BP systolic 92–140; BP diastolic 63–78; PULSE 66–101; RESP 12–28; TEMP 36.3–37.6; O2SAT 88–98
[2021-04-16 07:03] LABS: Absolute Lymphocyte Count 0.52 X10^3/uL (0.83-4.51); Basophil# 0.04 X10^3/uL; Basophil% 0.3 % (0-1); Eosinophil# 0.12 X10^3/uL; Hematocrit 40.9 % (40-54); Hemoglobin 13.9 g/dL (13.0-16.5); Lymphocyte # 0.52 X10^3/ul (0.83-4.51); Lymphocyte % 4.5 % (19-41); Mean Corpuscular Hgb 28.4 pg (27.0-32.0); Mean Corpuscular Volume 83.6 fL (80-94); Mean Platelet Vol. 8.5 fl (6.2-12.0); Monocyte# 0.54 X10^3/uL; Monocyte% 4.6 % (0-10); NRBC Flagged by Analyzer 0 % (0-5); Neutrophil # 9.97 X10^3/uL (2.7-7.7); Neutrophil % 85.8 % (47-70); POSITIVE DIFFERENTIAL YES; Platelet Count 381 K/mm3 (150-450); RBC Distribution Width CV 12.8 % (11.6-14.6); RBC Distribution Width SD 38.5 fl (35.1-43.9); Red Blood Count 4.89 M/mm3 (4.6-6.2); White Blood Count 11.6 K/mm3 (4.4-11.0)
[2021-04-16 07:22] LABS: Differential Indicated SCAN CRITERIA MET
[2021-04-16 07:35] LABS: ALB/GLOB Ratio 0.5 RATIO (0.9-2.4); AST(SGOT) 28 U/L (15-37); Alanine Aminotransfer ALT/SGPT 91 U/L (16-61); Albumin, Serum 2.5 g/dL (3.2-5.0); Alkaline Phosphatase 60 U/L (45-117); Anion Gap 8 (5-15); BUN 29 mg/dL (7-18); BUN/Creat Ratio 34.9 RATIO (10-20); Calcium,Total 8.6 mg/dL (8.5-10.1); Chloride 98 mmol/L (98-107); Creatinine, Serum 0.83 mg/dL (0.70-1.30); EST Glomerular Filtration Rate 100 mL/min (>60); Est Glom Filt Rate - Afr Amer 121 mL/min (>60); Estimated Creatinine Clearance 82.33 ml/min; Globulin 4.7 g/dL (2.2-4.2); Glucose 98 mg/dL (74-106); Potassium 4.1 mmol/L (3.5-5.1); Protein, Total 7.2 g/dL (6.4-8.2); Sodium Level 133 mmol/L (136-145)
[2021-04-16] MEDS: Furosemide 40 MG/4 ML Vial IV (09:01)
[2021-04-16] MEDS: Lisinopril 10 MG Tablet PO (09:02)
[2021-04-16] MEDS: dexAMETHasone 10 MG/ML Vial 6 MG IV (09:02)
[2021-04-16] MEDS: 0.9% Saline Lock 10 ML Syringe IV (09:02)
[2021-04-16] MEDS: Enoxaparin 40 MG/0.4 ML Syringe SC (09:02)
[2021-04-16 10:10] LABS: Pathologist Review Reviewed
--- NOTE | 2021-04-16 11:13 | PN.HOSP_ITS ---
Subjective Subjective Doing well, he tolerated the BiPAP and is currently on air Vo continue to encourage incentive spirometry and proning. I also discussed with him that at night when he sleeps or when he naps that he should be on BiPAP Objective Data Objective Data Vital Signs: Vital Signs Temp Pulse Resp BP Pulse Ox 97.4 F L 86 22 H 140/64 H 95 04/16/21 09:00 04/16/21 09:00 04/16/21 09:00 04/16/21 09:00 04/16/21 09:00 Oxygen Flow Rate (L/min) [At 1.5 REST with Oxygen] Oxygen Flow Rate (L/min) [ 6 AMBULATING with Oxygen #1] Oxygen Flow Rate (L/min) [ 0 AMBULATING on Room Air] Oxygen Flow Rate (L/min) [At 0 REST on Room Air] Oxygen Flow Rate (L/min) 60 Oxygen Delivery Method Airvo Weight: 226 lb 15.983 oz Body Mass Index (BMI) 37.8 Lab / Micro Data Result Diagrams: 04/16/21 06:40 04/16/21 06:40 Labs: Laboratory Results - last 24 hr 04/15/21 06:05: Diff Path Review Reviewed 04/16/21 06:40: Sodium 133 L, Potassium 4.1, Chloride 98, Carbon Dioxide 27.0, Anion Gap 8, BUN 29 H, Creatinine 0.83, Estim Creat Clear Calc 82.33, Est GFR (MDRD) Af Amer 121, Est GFR (MDRD) Non-Af 100, BUN/Creatinine Ratio 34.9 H, Glucose 98, Calcium 8.6, Total Bilirubin 0.90, AST 28, ALT 91 H, Alkaline Phosphatase 60, Total Protein 7.2, Albumin 2.5 L, Globulin 4.7 H, Albumin/Globulin Ratio 0.5 L 04/16/21 06:40: WBC 11.6 H, RBC 4.89, Hgb 13.9, Hct 40.9, MCV 83.6, MCH 28.4, MCHC 34.0, RDW Std Deviation 38.5, RDW Coeff of [place] 12.8, Plt Count 381, MPV 8.5, Immature Gran % (Auto) 3.800 H, Neut % (Auto) 85.8 H, Lymph % (Auto) 4.5 L, [place] % (Auto) 4.6, Eos % (Auto) 1.0, Baso % (Auto) 0.3, Absolute Neuts (auto) 10.0 H, Absolute Lymphs (auto) 0.52 L, Nucleated RBC % 0 Micro: Microbiology 04/09/21 08:33 Blood Culture (Wb) - Anticubital Left Blood Culture - Final No growth in 5 days. 04/09/21 08:40 Blood Culture (Wb) - Anticubital Right Blood Culture - Final No growth in 5 days. 04/09/21 11:51 Nasal Secretion SARS-CoV-2 Antigen (Rapid) - Final SARS-CoV-2 (COVID 19) Physical Exam Narrative Const alert, oriented x3 and no apparent distress General Appearance: cooperative HEENT normocephalic and moist oral mucous membranes Eyes PERRL, EOMs intact bilaterally and conjunctivae normal Neck supple and no JVD Resp normal respiratory effort, no retractions, no use of accessory muscles and clear to auscultation bilaterally Auscultation: Negative for crackles, rales, rhonchi or wheezes Cardio regular rate, regular rhythm, S1 normal heart sound, S2 normal heart sound and no murmurs GI soft to palpation, non-tender and non-distended; Negative for hepatosplenomegaly Extremity no clubbing, cyanosis or edema Skin no rashes or lesions noted Neuro no focal motor deficits and no sensory deficits noted Psych affect normal Appearance: appropriate Assessment & Plan Assessment/Plan (1) COVID-19: (2) Acute respiratory failure with hypoxia: PLAN: 1. Acute hypoxic respiratory failure secondary to COVID-19 pneumonia ?Currently on air Vo will continue with BiPAP with sleep ? Continue with baricitinib and Decadron ?Symptom onset on 03/29/2021 ?D-dimer was elevated to 2.[address] of the chest was negative for PE ?Appreciate pulmonology input ? Continue with periodic Lasix 2. HTN ?Blood pressure stable ?Continue with lisinopril DVT: Lovenox Charges/Coding Visit Charges Inpatient E&M: 15267 Subs Hosp L2
--- NOTE | 2021-04-16 11:22 | PN.CC_ITS ---
Assessment & Plan Assessment/Plan (1) Acute respiratory failure with hypoxia: (2) COVID-19: PLAN: RECOMMENDATIONS: 1. Continue Decadron (04/20/2021) and baricitinib (04/25/2021) 2. Encourage prone positioning, Acapella and incentive spirometer 3. Continue BiPAP with sleep. Okay to use Airvo during the day 4. Intermittent diuretics as necessary to maintain euvolemia. Challenge today 5. Okay to continue with prophylactic dose Lovenox 6. Continue full CODE STATUS IMPRESSIONS: 1. Acute hypoxic respiratory failure secondary to COVID-19 Patient is doing okay at this time. Patient is almost 2 weeks from initial symptoms. However, CRP is still significantly elevated. Patient has been seen by infectious disease. Complete baricitinib and Decadron therapy as described above. Agree with Remdesivir avoidance given delayed presentation. Patient is positive almost 5 L over the course of the hospitalization, so we will continue to challenge with Lasix as tolerated. No fevers have been noted and pro calcitonin initially is only mildly elevated. Agree with monitoring off of antibiotics for now. Given patient is now requiring BiPAP during the day, will would continue with sleep throughout the hospitalization. Patient did not have a PE on CTA, so prophylactic dosing of Lovenox is appropriate. Patient does have a history of empyema, so may have an element of restriction, but no PFTs are available for review. Patient appears to be responding to diuretic therapy. We will continue this as tolerated. 2. Obesity/nonvaccinated status/hypertension Complicates care, management, recovery and prognosis. Patient with very poor insight into his overall condition and potential prognosis. Patient is a full code at this time. Acceptable control with baseline antihypertensives at t his time. Subjective Subjective Patient did okay overnight. No acute issues were reported. Patient did use BiPAP with sleep, but is currently tolerating Airvo at 80%. Patient did receive Lasix and is complaining about the polyuria, but feels he is tolerating it better today. Objective Data Objective Data Vital Signs: Vital Signs Temp Pulse Resp BP Pulse Ox 36.3 C L 86 22 H 140/64 H 95 04/16/21 09:00 04/16/21 09:00 04/16/21 09:00 04/16/21 09:00 04/16/21 09:00 Oxygen Flow Rate (L/min) [At 1.5 REST with Oxygen] Oxygen Flow Rate (L/min) [ 6 AMBULATING with Oxygen #1] Oxygen Flow Rate (L/min) [ 0 AMBULATING on Room Air] Oxygen Flow Rate (L/min) [At 0 REST on Room Air] Oxygen Flow Rate (L/min) 60 Oxygen Delivery Method Airvo Weight: 102.965 kg Body Mass Index (BMI) 37.8 Lab / Micro Data Result Diagrams: 04/16/21 06:40 04/16/21 06:40 Labs: Laboratory Results - last 24 hr 04/15/21 06:05: Diff Path Review Reviewed 04/16/21 06:40: Sodium 133 L, Potassium 4.1, Chloride 98, Carbon Dioxide 27.0, Anion Gap 8, BUN 29 H, Creatinine 0.83, Estim Creat Clear Calc 82.33, Est GFR (MDRD) Af Amer 121, Est GFR (MDRD) Non-Af 100, BUN/Creatinine Ratio 34.9 H, Glucose 98, Calcium 8.6, Total Bilirubin 0.90, AST 28, ALT 91 H, Alkaline Phosphatase 60, Total Protein 7.2, Albumin 2.5 L, Globulin 4.7 H, Albumin/Globulin Ratio 0.5 L 04/16/21 06:40: WBC 11.6 H, RBC 4.89, Hgb 13.9, Hct 40.9, MCV 83.6, MCH 28.4, MCHC 34.0, RDW Std Deviation 38.5, RDW Coeff of [place] 12.8, Plt Count 381, MPV 8.5, Immature Gran % (Auto) 3.800 H, Neut % (Auto) 85.8 H, Lymph % (Auto) 4.5 L, [place] % (Auto) 4.6, Eos % (Auto) 1.0, Baso % (Auto) 0.3, Absolute Neuts (auto) 10.0 H, Absolute Lymphs (auto) 0.52 L, Nucleated RBC % 0 Micro: Microbiology 04/09/21 08:33 Blood Culture (Wb) - Anticubital Left Blood Culture - Final No growth in 5 days. 04/09/21 08:40 Blood Culture (Wb) - Anticubital Right Blood Culture - Final No growth in 5 days. 04/09/21 11:51 Nasal Secretion SARS-CoV-2 Antigen (Rapid) - Final SARS-CoV-2 (COVID 19) Physical Exam Const alert, oriented x3 and no apparent distress Constitutional Narrative: On Airvo, sitting in the chair, during my evaluation General Appearance: cooperative and well developed Nutritional Appearance: obese HEENT normocephalic and moist oral mucous membranes Eyes PERRL, EOMs intact bilaterally and conjunctivae normal Neck nuchal rigidity, supple, no JVD, thyroid normal and no carotid bruits General: trachea midline Chest inspection of chest normal Chest: symmetrical chest wall rise; Negative for crepitus Resp Effort and Inspection: actively coughing dry Auscultation: diminished lung sounds; Negative for rales, rhonchi or wheezes Cardio regular rate, regular rhythm, S1 normal heart sound, S2 normal heart sound, no murmurs, no rub and no gallops GI normal to inspection, nondistended, normoactive bowel sounds, soft to palpation, non-tender and non-distended Extremity no clubbing, cyanosis or edema Skin no rashes or lesions noted General Skin Exam: no breakdown Neuro oriented x3, CN's II-XII intact bilaterally, no focal motor deficits and no sensory deficits noted Sensorium / Orientation: awake and alert Speech: speech normal Psych thought process normal and affect normal Charges/Coding Visit Charges Inpatient E&M: 07637 Subs Hosp L3
--- NOTE | 2021-04-16 22:30 | NURSING ---
[facility] calling for information on pt's condition. Pt's son is in the and trying to get family leave to come home. This nurse spoke with pt and pt is ok for staff to give information to [facility].
[2021-04-17] VITALS (13 sets, daily range): BP systolic 113–136; BP diastolic 64–82; PULSE 63–97; RESP 12–24; TEMP 36.6–37; O2SAT 90–98
[2021-04-17 08:35] LABS: Absolute Neutrophil Count 11.9 X10^3/uL (2.0-7.7); Basophil# 0.03 X10^3/uL; Basophil% 0.2 % (0-1); Eosinophil# 0.17 X10^3/uL; Eosinophils% 1.3 % (0-5); Hematocrit 40.3 % (40-54); Mean Corp Hgb Conc 34.7 g/dL (32-36); Mean Corpuscular Volume 83.6 fL (80-94); Mean Platelet Vol. 8.4 fl (6.2-12.0); Monocyte# 0.54 X10^3/uL; Monocyte% 4.1 % (0-10); NRBC Flagged by Analyzer 0 % (0-5); Neutrophil # 11.87 X10^3/uL (2.7-7.7); Neutrophil % 89.7 % (47-70); POSITIVE DIFFERENTIAL YES; Platelet Count 371 K/mm3 (150-450); RBC Distribution Width CV 12.9 % (11.6-14.6); RBC Distribution Width SD 38.5 fl (35.1-43.9); Red Blood Count 4.82 M/mm3 (4.6-6.2); White Blood Count 13.2 K/mm3 (4.4-11.0)
[2021-04-17 08:40] LABS: Differential Indicated SCAN CRITERIA MET
[2021-04-17] MEDS: 0.9% Saline Lock 10 ML Syringe IV ×2 (08:43→20:55)
[2021-04-17] MEDS: dexAMETHasone 10 MG/ML Vial 6 MG IV (08:44)
[2021-04-17] MEDS: Lisinopril 10 MG Tablet PO (08:44)
[2021-04-17] MEDS: Enoxaparin 40 MG/0.4 ML Syringe SC (08:44)
[2021-04-17 08:57] LABS: ALB/GLOB Ratio 0.5 RATIO (0.9-2.4); AST(SGOT) 33 U/L (15-37); Alanine Aminotransfer ALT/SGPT 80 U/L (16-61); Albumin, Serum 2.5 g/dL (3.2-5.0); Alkaline Phosphatase 66 U/L (45-117); Anion Gap 7 (5-15); BUN 23 mg/dL (7-18); BUN/Creat Ratio 29.2 RATIO (10-20); Calcium,Total 8.5 mg/dL (8.5-10.1); Chloride 99 mmol/L (98-107); Creatinine, Serum 0.79 mg/dL (0.70-1.30); EST Glomerular Filtration Rate 107 mL/min (>60); Est Glom Filt Rate - Afr Amer 129 mL/min (>60); Globulin 4.8 g/dL (2.2-4.2); Glucose 90 mg/dL (74-106); Potassium 4.2 mmol/L (3.5-5.1); Protein, Total 7.3 g/dL (6.4-8.2); Sodium Level 133 mmol/L (136-145)
[2021-04-17] MEDS: Furosemide 40 MG/4 ML Vial IV (11:58)
--- NOTE | 2021-04-17 12:19 | PN.HOSP_ITS ---
Subjective Subjective Doing well he is still on air Vo currently during the day however because of the BiPAP at night he is now down to 45 L/min and 60% FiO2. I discussed with him the need to continue with the ambulation as well as incentive spirometry and then wearing the BiPAP whenever he sleeps Objective Data Objective Data Vital Signs: Vital Signs Temp Pulse Resp BP Pulse Ox 98.6 F 97 20 H 123/64 H 93 04/17/21 08:43 04/17/21 09:00 04/17/21 08:43 04/17/21 08:43 04/17/21 08:43 Oxygen Flow Rate (L/min) [At 1.5 REST with Oxygen] Oxygen Flow Rate (L/min) [ 6 AMBULATING with Oxygen #1] Oxygen Flow Rate (L/min) [ 0 AMBULATING on Room Air] Oxygen Flow Rate (L/min) [At 0 REST on Room Air] Oxygen Flow Rate (L/min) 45 Oxygen Delivery Method Airvo Weight: 226 lb 15.983 oz Body Mass Index (BMI) 37.8 Intake & Output: Intake and Output for Last 24 Hours 04/16/21 04/17/21 04/18/21 03:59 03:59 03:59 Intake Total 1400 / 1400 Output Total 1625 / 1625 Balance -225 / -225 Lab / Micro Data Result Diagrams: 04/17/21 08:05 04/17/21 08:05 Labs: Laboratory Results - last 24 hr 04/17/21 08:05: Sodium 133 L, Potassium 4.2, Chloride 99, Carbon Dioxide 27.0, Anion Gap 7, BUN 23 H, Creatinine 0.79, Estim Creat Clear Calc 86.50, Est GFR (MDRD) Af Amer 129, Est GFR (MDRD) Non-Af 107, BUN/Creatinine Ratio 29.2 H, Gluc ose 90, Calcium 8.5, Total Bilirubin 1.00, AST 33, ALT 80 H, Alkaline Phospha tase 66, Total Protein 7.3, Albumin 2.5 L, Globulin 4.8 H, Albumin/Globulin Ratio 0.5 L 04/17/21 08:05: WBC 13.2 H, RBC 4.82, Hgb 14.0, Hct 40.3, MCV 83.6, MCH 29.0, MCHC 34.7, RDW Std Deviation 38.5, RDW Coeff of [place] 12.9, Plt Count 371, MPV 8.4, Immature Gran % (Auto) 1.700 H, Neut % (Auto) 89.7 H, Lymph % (Auto) 3.0 L, [place] % (Auto) 4.1, Eos % (Auto) 1.3, Baso % (Auto) 0.2, Absolute Neuts (auto) 11 .9 H, Absolute Lymphs (auto) 0.40 L, Nucleated RBC % 0 Micro: Microbiology 04/09/21 08:33 Blood Culture (Wb) - Anticubital Left Blood Culture - Final No growth in 5 days. 04/09/21 08:40 Blood Culture (Wb) - Anticubital Right Blood Culture - Final No growth in 5 days. 04/09/21 11:51 Nasal Secretion SARS-CoV-2 Antigen (Rapid) - Final SARS-CoV-2 (COVID 19) Physical Exam Narrative Const alert, oriented x3 and no apparent distress General Appearance: cooperative HEENT normocephalic and moist oral mucous membranes Eyes PERRL, EOMs intact bilaterally and conjunctivae normal Neck supple and no JVD Resp normal respiratory effort, no retractions, no use of accessory muscles and clear to auscultation bilaterally Auscultation: Negative for crackles, rales, rhonchi or wheezes Cardio regular rate, regular rhythm, S1 normal heart sound, S2 normal heart sound and no murmurs GI soft to palpation, non-tender and non-distended; Negative for hepatosplenomegaly Extremity no clubbing, cyanosis or edema Skin no rashes or lesions noted Neuro no focal motor deficits and no sensory deficits noted Psych affect normal Appearance: appropriate Assessment & Plan Assessment/Plan (1) COVID-19: (2) Acute respiratory failure with hypoxia: PLAN: 1. Acute hypoxic respiratory failure secondary to COVID-19 pneumonia ?Currently on air Vo will continue with BiPAP with sleep ? Continue with baricitinib and Decadron ?Symptom onset on 03/29/2021 ?D-dimer was elevated to 2.[address] of the chest was negative for PE ?Appreciate pulmonology input ? Continue with periodic Lasix 2. HTN ?Blood pressure stable ?Continue with lisinopril DVT: Lovenox Charges/Coding Visit Charges Inpatient E&M: 39310 Subs Hosp L2
--- NOTE | 2021-04-17 14:35 | PCM.PN.INT ---
Assessment & Plan Assessment/Plan (1) Acute respiratory failure with hypoxia: (2) COVID-19: PLAN: RECOMMENDATIONS: 1. Continue Decadron (04/20/2021) and baricitinib (04/25/2021) 2. Encourage prone positioning, Acapella and incentive spirometer 3. Continue BiPAP with sleep. Possible transition to nasal cannula if able to tolerate FiO2 of 45% 4. Intermittent diuretics as necessary to maintain euvolemia. Challenge today 5. Okay to continue with prophylactic dose Lovenox 6. Continue full CODE STATUS IMPRESSIONS: 1. Acute hypoxic respiratory failure secondary to COVID-19 Patient is doing okay at this time. Patient is almost 2 weeks from initial symptoms. However, CRP is still significantly elevated. Patient has been seen by infectious disease. Complete baricitinib and Decadron therapy as described above. Agree with Remdesivir avoidance given delayed presentation. Patient is positive almost 5 L over the course of the hospitalization, so we will continue to challenge with Lasix as tolerated. No fevers have been noted and pro calcitonin initially is only mildly elevated. Agree with monitoring off of antibiotics for now. Patient with significant improvement over the last 24 to 48 hours. Continue current therapy. Likely okay to transition to high flow nasal cannula if able to tolerate 45% on Airvo. 2. Obesity/nonvaccinated status/hypertension Complicates care, management, recovery and prognosis. Patient with very poor insight into his overall condition and potential prognosis. Patient is a full code at this time. Acceptable control with baseline antihypertensives at this time. Subjective Subjective Patient did well overnight. Patient was able to use BiPAP with sleep. Patient received Lasix today with good response. Patient has been able to be weaned down to 45% FiO2, but still using Airvo during the day. Patient continues to have a cough, but reports no change in production. Objective Data Objective Data Vital Signs: Vital Signs Temp Pulse Resp BP Pulse Ox 37.0 C 97 20 H 123/64 H 93 04/17/21 08:43 04/17/21 09:00 04/17/21 08:43 04/17/21 08:43 04/17/21 08:43 Oxygen Flow Rate (L/min) [At 1.5 REST with Oxygen] Oxygen Flow Rate (L/min) [ 6 AMBULATING with Oxygen #1] Oxygen Flow Rate (L/min) [ 0 AMBULATING on Room Air] Oxygen Flow Rate (L/min) [At 0 REST on Room Air] Oxygen Flow Rate (L/min) 45 Oxygen Delivery Method Airvo Weight: 102.965 kg Body Mass Index (BMI) 37.8 Intake & Output: Intake and Output for Last 24 Hours 04/15/21 04/16/21 04/17/21 23:59 23:59 23:59 Intake Total 1400 / 1400 1000 / 1000 Output Total 1625 / 1625 Balance -225 / -225 1000 / 1000 Lab / Micro Data Result Diagrams: 04/17/21 08:05 04/17/21 08:05 Labs: Laboratory Results - last 24 hr 04/17/21 08:05: Sodium 133 L, Potassium 4.2, Chloride 99, Carbon Dioxide 27.0, Anion Gap 7, BUN 23 H, Creatinine 0.79, Estim Creat Clear Calc 86.50, Est GFR (MDRD) Af Amer 129, Est GFR (MDRD) Non-Af 107, BUN/Creatinine Ratio 29.2 H, Glucose 90, Calcium 8.5, Total Bilirubin 1.00, AST 33, ALT 80 H, Alkaline Phosphatase 66, Total Protein 7.3, Albumin 2.5 L, Globulin 4.8 H, Albumin/Globulin Ratio 0.5 L 04/17/21 08:05: WBC 13.2 H, RBC 4.82, Hgb 14.0, Hct 40.3, MCV 83.6, MCH 29.0, MCHC 34.7, RDW Std Deviation 38.5, RDW Coeff of [place] 12.9, Plt Count 371, MPV 8.4, Immature Gran % (Auto) 1.700 H, Neut % (Auto) 89.7 H, Lymph % (Auto) 3.0 L, [place] % (Auto) 4.1, Eos % (Auto) 1.3, Baso % (Auto) 0.2, Absolute Neuts (auto) 11.9 H, Absolute Lymphs (auto) 0.40 L, Nucleated RBC % 0 Micro: Microbiology 04/16/21 16:10 Sputum, Expectorated/Coughed Gram Stain - Final 04/16/21 16:10 Sputum, Expectorated/Coughed Respiratory Culture - Preliminary Appears to be normal respiratory graciela. Further studies to follow. 04/09/21 08:33 Blood Culture (Wb) - Anticubital Left Blood Culture - Final No growth in 5 days. 04/09/21 08:40 Blood Culture (Wb) - Anticubital Right Blood Culture - Final No growth in 5 days. 04/09/21 11:51 Nasal Secretion SARS-CoV-2 Antigen (Rapid) - Final SARS-CoV-2 (COVID 19) Physical Exam Const alert, oriented x3 and no apparent distress Constitutional Narrative: On Airvo, sitting in the chair, during my evaluation General Appearance: cooperative and well developed Nutritional Appearance: obese HEENT normocephalic and moist oral mucous membranes Eyes PERRL, EOMs intact bilaterally and conjunctivae normal Neck nuchal rigidity, supple, no JVD, thyroid normal and no carotid bruits General: trachea midline Chest inspection of chest normal Chest: symmetrical chest wall rise; Negative for crepitus Resp Effort and Inspection: actively coughing dry Auscultation: diminished lung sounds; Negative for rales, rhonchi or wheezes Cardio regular rate, regular rhythm, S1 normal heart sound, S2 normal heart sound, no murmurs, no rub and no gallops GI normal to inspection, nondistended, normoactive bowel sounds, soft to palpation, non-tender and non-distended Extremity no clubbing, cyanosis or edema Skin no rashes or lesions noted General Skin Exam: no breakdown Neuro oriented x3, CN's II-XII intact bilaterally, no focal motor deficits and no sensory deficits noted Sensorium / Orientation: awake and alert Speech: speech normal Psych thought process normal and affect normal Charges/Coding Visit Charges Inpatient E&M: 19118 Subs Hosp L2
[2021-04-18] VITALS (11 sets, daily range): BP systolic 110–132; BP diastolic 65–83; PULSE 68–93; RESP 12–38; TEMP 36.6–36.8; O2SAT 91–97
[2021-04-18 07:03] LABS: Absolute Lymphocyte Count 0.44 X10^3/uL (0.83-4.51); Absolute Neutrophil Count 9.3 X10^3/uL (2.0-7.7); Basophil# 0.03 X10^3/uL; Basophil% 0.3 % (0-1); Eosinophil# 0.16 X10^3/uL; Eosinophils% 1.5 % (0-5); Hematocrit 42.1 % (40-54); Hemoglobin 13.9 g/dL (13.0-16.5); Lymphocyte # 0.44 X10^3/ul (0.83-4.51); Lymphocyte % 4.2 % (19-41); Mean Corpuscular Hgb 28.3 pg (27.0-32.0); Mean Corpuscular Volume 85.7 fL (80-94); Monocyte# 0.44 X10^3/uL; Monocyte% 4.2 % (0-10); NRBC Flagged by Analyzer 0 % (0-5); Neutrophil # 9.29 X10^3/uL (2.7-7.7); Neutrophil % 87.9 % (47-70); POSITIVE DIFFERENTIAL YES; Platelet Count 412 K/mm3 (150-450); RBC Distribution Width SD 39.8 fl (35.1-43.9); Red Blood Count 4.91 M/mm3 (4.6-6.2); White Blood Count 10.6 K/mm3 (4.4-11.0)
[2021-04-18 07:11] LABS: Differential Indicated SCAN CRITERIA MET
[2021-04-18 07:33] LABS: Anion Gap 9 (5-15); BUN 24 mg/dL (7-18); BUN/Creat Ratio 27.5 RATIO (10-20); Calcium,Total 8.7 mg/dL (8.5-10.1); Chloride 98 mmol/L (98-107); Creatinine, Serum 0.87 mg/dL (0.70-1.30); EST Glomerular Filtration Rate 95 mL/min (>60); Est Glom Filt Rate - Afr Amer 115 mL/min (>60); Estimated Creatinine Clearance 78.54 ml/min; Glucose 89 mg/dL (74-106); Potassium 4.6 mmol/L (3.5-5.1); Sodium Level 134 mmol/L (136-145)
[2021-04-18] MEDS: Enoxaparin 40 MG/0.4 ML Syringe SC (09:00)
[2021-04-18] MEDS: dexAMETHasone 10 MG/ML Vial 6 MG IV (09:00)
[2021-04-18] MEDS: 0.9% Saline Lock 10 ML Syringe IV ×2 (09:01→10:13)
[2021-04-18] MEDS: Lisinopril 10 MG Tablet PO (09:01)
--- NOTE | 2021-04-18 09:31 | PN.CC_ITS ---
Assessment & Plan Assessment/Plan (1) Acute respiratory failure with hypoxia: (2) COVID-19: PLAN: RECOMMENDATIONS: 1. Continue Decadron (04/20/2021) and baricitinib (04/25/2021) 2. Encourage prone positioning, Acapella and incentive spirometer 3. Continue BiPAP with sleep. Wean nasal cannula as tolerated 4. Intermittent diuretics as necessary to maintain euvolemia. Challenge today 5. Okay to discharge once able to ambulate on 6 L or less 6. Follow-up in pulmonary office 4 to 6 weeks after discharge 7. Hemodynamically stable on nasal cannula. Will sign off from a pulmonary perspective IMPRESSIONS: 1. Acute hypoxic respiratory failure secondary to COVID-19 Patient is doing okay at this time. Patient is almost 2 weeks from initial symptoms. However, CRP is still significantly elevated. Patient has been seen by infectious disease. Complete baricitinib and Decadron therapy as described above. Agree with Remdesivir avoidance given delayed presentation. Patient is positive almost 4 L over the course of the hospitalization, so we will continue to challenge with Lasix as tolerated. No fevers have been noted and pro calcitonin initially is only mildly elevated. Agree with monitoring off of antibiotics for now. Patient with significant improvement over the last 24 to 48 hours. Continue current therapy. Patient currently on nasal cannula and tolerating well. Continue to wean oxygen as tolerated. Once patient able to ambulate on 6 L or less patient can be discharged. Patient should follow-up in the pulmonary office 4 to 6 weeks after discharge 2. Obesity/nonvaccinated status/hypertension Complicates care, management, recovery and prognosis. Patient with very poor insight into his overall condition and potential prognosis. Patient is a full code at this time. Acceptable control with baseline antihypertensives at this time. Subjective Subjective Patient did well overnight. Patient was able to tolerate BiPAP. Patient was desaturating eating breakfast this morning on his 10 L, but has tolerated it otherwise. Patient is not reporting any chest pain, abdominal pain, nausea or vomiting Objective Data Objective Data Vital Signs: Vital Signs Temp Pulse Resp BP Pulse Ox 36.8 C 81 24 H 123/70 H 91 04/18/21 08:58 04/18/21 08:58 04/18/21 08:58 04/18/21 08:58 04/18/21 08:58 Oxygen Flow Rate (L/min) [At 1.5 REST with Oxygen] Oxygen Flow Rate (L/min) [ 6 AMBULATING with Oxygen #1] Oxygen Flow Rate (L/min) [ 0 AMBULATING on Room Air] Oxygen Flow Rate (L/min) [At 0 REST on Room Air] Oxygen Flow Rate (L/min) 10 Oxygen Delivery Method High Flow Weight: 102.965 kg Body Mass Index (BMI) 37.8 Intake & Output: Intake and Output for Last 24 Hours 04/16/21 04/17/21 04/18/21 23:59 23:59 23:59 Intake Total 1400 / 1400 1000 / 1000 Output Total 1625 / 1625 300 / 300 1275 / 1275 Balance -225 / -225 700 / 700 -1275 / -1275 Lab / Micro Data Result Diagrams: 04/18/21 05:50 04/18/21 05:50 Labs: Laboratory Results - last 24 hr 04/18/21 05:50: WBC 10.6, RBC 4.91, Hgb 13.9, Hct 42.1, MCV 85.7, MCH 28.3, MCHC 33.0, RDW Std Deviation 39.8, RDW Coeff of [place] 13.0, Plt Count 412, MPV 9.0, Immature Gran % (Auto) 1.900 H, Neut % (Auto) 87.9 H, Lymph % (Auto) 4.2 L, [place] % (Auto) 4.2, Eos % (Auto) 1.5, Baso % (Auto) 0.3, Absolute Neuts (auto) 9.3 H, Absolute Lymphs (auto) 0.44 L, Nucleated RBC % 0 04/18/21 05:50: Sodium 134 L, Potassium 4.6, Chloride 98, Carbon Dioxide 27.0, Anion Gap 9, BUN 24 H, Creatinine 0.87, Estim Creat Clear Calc 78.54, Est GFR (MDRD) Af Amer 115, Est GFR (MDRD) Non-Af 95, BUN/Creatinine Ratio 27.5 H, Glucose 89, Calcium 8.7 Micro: Microbiology 04/16/21 16:10 Sputum, Expectorated/Coughed Gram Stain - Final 04/16/21 16:10 Sputum, Expectorated/Coughed Respiratory Culture - Preliminary Appears to be normal respiratory graciela. Further studies to follow. 04/09/21 08:33 Blood Culture (Wb) - Anticubital Left Blood Culture - Final No growth in 5 days. 04/09/21 08:40 Blood Culture (Wb) - Anticubital Right Blood Culture - Final No growth in 5 days. 04/09/21 11:51 Nasal Secretion SARS-CoV-2 Antigen (Rapid) - Final SARS-CoV-2 (COVID 19) Physical Exam Const alert, oriented x3 and no apparent distress Constitutional Narrative: On nasal cannula, eating breakfast without conv ersational dyspnea, during my evaluation General Appearance: cooperative and well developed Nutritional Appearance: obese HEENT normocephalic and moist oral mucous membranes Eyes PERRL, EOMs intact bilaterally and conjunctivae normal Neck nuchal rigidity, supple, no JVD, thyroid normal and no carotid bruits General: trachea midline Chest inspection of chest normal Chest: symmetrical chest wall rise; Negative for crepitus Resp Effort and Inspection: actively coughing dry Auscultation: diminished lung sounds; Negative for rales, rhonchi or wheezes Cardio regular rate, regular rhythm, S1 normal heart sound, S2 normal heart sound, no murmurs, no rub and no gallops GI normal to inspection, nondistended, normoactive bowel sounds, soft to palpation, non-tender and non-distended Extremity no clubbing, cyanosis or edema Skin no rashes or lesions noted General Skin Exam: no breakdown Neuro oriented x3, CN's II-XII intact bilaterally, no focal motor deficits and no sensory deficits noted Sensorium / Orientation: awake and alert Speech: speech normal Psych thought process normal and affect normal Charges/Coding Visit Charges Inpatient E&M: 16580 Subs Hosp L2
--- NOTE | 2021-04-18 10:11 | NURSING ---
spo2 78-84 with activity on 11L NC, bumped up to 15L HF to assist with recovery
[2021-04-18] MEDS: Furosemide 40 MG/4 ML Vial IV (10:12)
--- NOTE | 2021-04-18 10:13 | NURSING ---
spo2 90% within 2 minutes of increasing to 15L for recovery post BSC
--- NOTE | 2021-04-18 10:35 | NURSING ---
after activity, recovered to 93% at rest on 15L high.
--- NOTE | 2021-04-18 14:50 | PCM.PN.HOSP ---
Subjective Subjective Patient was seen and examined today, he is currently on 11 L via nasal cannula, patient does not complain of any shortness of breath or chest discomfort Objective Data Objective Data Vital Signs: Vital Signs Temp Pulse Resp BP Pulse Ox 97.9 F 93 24 H 110/65 96 04/18/21 14:12 04/18/21 14:12 04/18/21 14:12 04/18/21 14:12 04/18/21 14:12 Oxygen Flow Rate (L/min) [At 1.5 REST with Oxygen] Oxygen Flow Rate (L/min) [ 6 AMBULATING with Oxygen #1] Oxygen Flow Rate (L/min) [ 0 AMBULATING on Room Air] Oxygen Flow Rate (L/min) [At 0 REST on Room Air] Oxygen Flow Rate (L/min) 11 Oxygen Delivery Method High Flow Weight: 102.965 kg Body Mass Index (BMI) 37.8 Intake & Output: Intake and Output for Last 24 Hours 04/16/21 04/17/21 04/18/21 23:59 23:59 23:59 Intake Total 1400 / 1400 1000 / 1000 1000 / 1000 Output Total 1625 / 1625 300 / 300 2675 / 2675 Balance -225 / -225 700 / 700 -1675 / -1675 Lab / Micro Data Result Diagrams: 04/18/21 05:50 04/18/21 05:50 Labs: Laboratory Results - last 24 hr 04/18/21 05:50: WBC 10.6, RBC 4.91, Hgb 13.9, Hct 42.1, MCV 85.7, MCH 28.3, MCHC 33.0, RDW Std Deviation 39.8, RDW Coeff of [place] 13.0, Plt Count 412, MPV 9.0, Immature Gran % (Auto) 1.900 H, Neut % (Auto) 87.9 H, Lymph % (Auto) 4.2 L, [place] % (Auto) 4.2, Eos % (Auto) 1.5, Baso % (Auto) 0.3, Absolute Neuts (auto) 9.3 H, Absolute Lymphs (auto) 0.44 L, Nucleated RBC % 0 04/18/21 05:50: Sodium 134 L, Potassium 4.6, Chloride 98, Carbon Dioxide 27.0, Anion Gap 9, BUN 24 H, Creatinine 0.87, Estim Creat Clear Calc 78.54, Est GFR (MDRD) Af Amer 115, Est GFR (MDRD) Non-Af 95, BUN/Creatinine Ratio 27.5 H, Glucose 89, Calcium 8.7 Micro: Microbiology 04/16/21 16:10 Sputum, Expectorated/Coughed Gram Stain - Final 04/16/21 16:10 Sputum, Expectorated/Coughed Respiratory Culture - Final 04/09/21 08:33 Blood Culture (Wb) - Anticubital Left Blood Culture - Final No growth in 5 days. 04/09/21 08:40 Blood Culture (Wb) - Anticubital Right Blood Culture - Final No growth in 5 days. 04/09/21 11:51 Nasal Secretion SARS-CoV-2 Antigen (Rapid) - Final SARS-CoV-2 (COVID 19) Physical Exam Const alert, oriented x3, no apparent distress and healthy appearing General Appearance: cooperative, well kempt and well developed Orientation / Consciousness: awake, oriented to person, oriented to place and oriented to time HEENT normocephalic and moist oral mucous membranes Eyes PERRL, EOMs intact bilaterally and conjunctivae normal Neck nuchal rigidity, supple, no JVD, thyroid normal and no carotid bruits General: trachea midline Resp normal respiratory effort and no use of accessory muscles Resp Narrative: Scattered inspiratory rales are noted over the upper lung white bilaterally Auscultation: Negative for rales, rhonchi or wheezes Cardio regular rate, regular rhythm, S1 normal heart sound, S2 normal heart sound, no murmurs, no rub and no gallops GI normal to inspection, nondistended, normoactive bowel sounds, soft to palpation, non-tender and non-distended Extremity no clubbing, cyanosis or edema Skin no rashes or lesions noted General Skin Exam: no breakdown Neuro oriented x3, CN's II-XII intact bilaterally, no focal motor deficits and no sensory deficits noted Sensorium / Orientation: awake and alert Speech: speech normal Psych thought process normal and affect normal Assessment & Plan Assessment/Plan (1) Acute respiratory failure with hypoxia: PLAN: 1. COVID-19 pneumonia-patient is currently on dexamethasone and baricitinib #2 acute hypoxic respiratory failure-patient is currently on high flow nasal cannula oxygen, pulse ox will be monitored, patient will be weaned if possible. #3 essential hypertension-patient will remain on lisinopril Charges/Coding Visit Charges Inpatient E&M: 06809 Subs Hosp L2
--- NOTE | 2021-04-18 15:48 | NURSING ---
This nurse is aware of Vital Signs that were taken by David Kaiser RN
[2021-04-19] VITALS (8 sets, daily range): BP systolic 107–127; BP diastolic 65–87; PULSE 67–92; RESP 12–23; TEMP 36.6–37; O2SAT 92–98
[2021-04-19] MEDS: Enoxaparin 40 MG/0.4 ML Syringe SC (09:22)
[2021-04-19] MEDS: Lisinopril 10 MG Tablet PO (09:23)
[2021-04-19] MEDS: 0.9% Saline Lock 10 ML Syringe IV (09:23)
[2021-04-19] MEDS: dexAMETHasone 10 MG/ML Vial 6 MG IV (09:25)
--- NOTE | 2021-04-19 19:06 | PN.HOSP_ITS ---
Subjective Subjective Patient was seen and examined today, he is currently out of isolation, he is stable on nasal cannula oxygen-his current flow rate is 5.5 L. I told him that tomorrow we could try walking him to see if we could get him stabilized on home O2 settings. Patient denies any fevers or chills, he denies any shortness of b reath at rest. Objective Data Objective Data Vital Signs: Vital Signs Temp Pulse Resp BP Pulse Ox 98 F 92 18 110/76 92 04/19/21 18:16 04/19/21 18:16 04/19/21 18:16 04/19/21 18:16 04/19/21 18:16 Oxygen Flow Rate (L/min) [At 1.5 REST with Oxygen] Oxygen Flow Rate (L/min) [ 6 AMBULATING with Oxygen #1] Oxygen Flow Rate (L/min) [ 0 AMBULATING on Room Air] Oxygen Flow Rate (L/min) [At 0 REST on Room Air] Oxygen Flow Rate (L/min) 5.5 Oxygen Delivery Method High Flow Weight: 102.965 kg Body Mass Index (BMI) 37.8 Intake & Output: Intake and Output for Last 24 Hours 04/17/21 04/18/21 04/19/21 23:59 23:59 23:59 Intake Total 1000 / 1000 1000 / 1000 Output Total 300 / 300 2675 / 3100 975 / 975 Balance 700 / 700 -1675 / -2100 -975 / -975 Lab / Micro Data Result Diagrams: 04/18/21 05:50 04/18/21 05:50 Micro: Microbiology 04/16/21 16:10 Sputum, Expectorated/Coughed Gram Stain - Final 04/16/21 16:10 Sputum, Expectorated/Coughed Respiratory Culture - Final 04/09/21 08:33 Blood Culture (Wb) - Anticubital Left Blood Culture - Final No growth in 5 days. 04/09/21 08:40 Blood Culture (Wb) - Anticubital Right Blood Culture - Final No growth in 5 days. 04/09/21 11:51 Nasal Secretion SARS-CoV-2 Antigen (Rapid) - Final SARS-CoV-2 (COVID 19) Physical Exam Const alert, oriented x3, no apparent distress and healthy appearing General Appearance: cooperative, well kempt and well developed Orientation / Consciousness: awake, oriented to person, oriented to place and oriented to time HEENT normocephalic and moist oral mucous membranes Eyes PERRL, EOMs intact bilaterally and conjunctivae normal Neck nuchal rigidity, supple, no JVD and thyroid normal General: trachea midline Resp normal respiratory effort, no retractions and no use of accessory muscles Resp Narrative: Inspiratory rales are noted at the bases bilaterally Auscultation: Negative for rales, rhonchi or wheezes Cardio regular rate, regular rhythm, S1 normal heart sound, S2 normal heart sound, no murmurs, no rub and no gallops GI normal to inspection, nondistended, normoactive bowel sounds, soft to palpation, non-tender and non-distended Extremity no clubbing, cyanosis or edema Skin no rashes or lesions noted General Skin Exam: no breakdown Neuro oriented x3, CN's II-XII intact bilaterally, no focal motor deficits and no sensory deficits noted Sensorium / Orientation: awake and alert Speech: speech normal Psych thought process normal and affect normal Assessment & Plan Assessment/Plan (1) Acute respiratory failure with hypoxia: PLAN: 1. COVID-19 pneumonia-patient is currently on dexamethasone and baricitinib #2 acute hypoxic respiratory failure-patient is currently on a lower oxygen setting than yesterday, I will recheck the patient tomorrow to see if he is capable of being discharged home on home O2. #3 essential hypertension-patient will remain on lisinopril Charges/Coding Visit Charges Inpatient E&M: 70601 Subs Hosp L2
[2021-04-20] VITALS (8 sets, daily range): BP systolic 112–130; BP diastolic 63–80; PULSE 86–98; RESP 18; TEMP 36.4–36.8; O2SAT 76–94
[2021-04-20] MEDS: Lisinopril 10 MG Tablet PO (09:46)
[2021-04-20] MEDS: dexAMETHasone 10 MG/ML Vial 6 MG IV (09:47)
[2021-04-20] MEDS: Enoxaparin 40 MG/0.4 ML Syringe SC (09:47)
[2021-04-20] MEDS: 0.9% Saline Lock 10 ML Syringe IV (09:47)
--- NOTE | 2021-04-20 19:14 | PN.HOSP_ITS ---
Subjective Subjective Patient was seen and examined today, he is on 5.5 L nasal cannula at rest but today when he got up during activity, he desaturated. Patient does not complain of any shortness of breath at rest, he has no complaints of any chest discomfort or fever or chills. Objective Data Objective Data Vital Signs: Vital Signs Temp Pulse Resp BP Pulse Ox 97.8 F 89 18 112/66 94 04/20/21 16:59 04/20/21 16:59 04/20/21 16:59 04/20/21 16:59 04/20/21 16:59 Oxygen Flow Rate (L/min) [At 5.5 REST with Oxygen] Oxygen Flow Rate (L/min) [ 6 AMBULATING with Oxygen #1] Oxygen Flow Rate (L/min) [ 0 AMBULATING on Room Air] Oxygen Flow Rate (L/min) [At 0 REST on Room Air] Oxygen Flow Rate (L/min) 5.5 Oxygen Delivery Method High Flow Weight: 102.965 kg Body Mass Index (BMI) 37.8 Intake & Output: Intake and Output for Last 24 Hours 04/18/21 04/19/21 04/20/21 23:59 23:59 23:59 Intake Total 1000 / 1000 Output Total 2675 / 3100 975 / 1575 1450 / 1450 Balance -1675 / -2100 -975 / -1575 -1450 / -1450 Lab / Micro Data Result Diagrams: 04/18/21 05:50 04/18/21 05:50 Micro: Microbiology 04/16/21 16:10 Sputum, Expectorated/Coughed Gram Stain - Final 04/16/21 16:10 Sputum, Expectorated/Coughed Respiratory Culture - Final 04/09/21 08:33 Blood Culture (Wb) - Anticubital Left Blood Culture - Final No growth in 5 days. 04/09/21 08:40 Blood Culture (Wb) - Anticubital Right Blood Culture - Final No growth in 5 days. 04/09/21 11:51 Nasal Secretion SARS-CoV-2 Antigen (Rapid) - Final SARS-CoV-2 (COVID 19) Physical Exam Const alert, oriented x3, no apparent distress and healthy appearing General Appearance: cooperative, well kempt and well developed Orientation / Consciousness: awake, oriented to person, oriented to place and oriented to time HEENT normocephalic, head/scalp atraumatic and moist oral mucous membranes Head and Scalp: normocephalic Eyes PERRL, EOMs intact bilaterally and conjunctivae normal Neck nuchal rigidity, supple, no JVD and thyroid normal General: trachea midline Resp normal respiratory effort, no retractions, no use of accessory muscles and clear to auscultation bilaterally Auscultation: Negative for rales, rhonchi or wheezes Cardio regular rate, regular rhythm, S1 normal heart sound, S2 normal heart sound, no murmurs, no rub and no gallops GI normal to inspection, nondistended, normoactive bowel sounds, soft to palpation, non-tender and non-distended Extremity no clubbing, cyanosis or edema Skin no rashes or lesions noted General Skin Exam: no breakdown Neuro oriented x3, CN's II-XII intact bilaterally, no focal motor deficits and no sensory deficits noted Sensorium / Orientation: awake and alert Speech: speech normal Psych thought process normal and affect normal Assessment & Plan Assessment/Plan (1) Acute respiratory failure with hypoxia: PLAN: 1. COVID-19 pneumonia-patient is currently on baricitinib-patient finished his dexamethasone treatment #2 acute hypoxic respiratory failure-patient is currently on a lower oxygen sett ing than yesterday, I will recheck the patient tomorrow to see if he is capable of being discharged home on home O2. #3 essential hypertension-patient will remain on lisinopril Charges/Coding Visit Charges Inpatient E&M: 26771 Subs Hosp L2
[2021-04-21] VITALS (10 sets, daily range): BP systolic 108–123; BP diastolic 68–79; PULSE 77–99; RESP 18–20; TEMP 36.4–36.9; O2SAT 83–96
[2021-04-21] MEDS: Enoxaparin 40 MG/0.4 ML Syringe SC (09:34)
[2021-04-21] MEDS: Lisinopril 10 MG Tablet PO (09:34)
--- NOTE | 2021-04-21 16:23 | CASEMGMT ---
Pt qualifies for home O2. Pt is self pay. [facility] do not take self pay. [facility] is not taking new patients, [facility] does not have 6L concentrators. [facility] is out of O2. TC to [facility], spoke with [facility]. They are able to take self pay. She is able to accommodate 6L of O2 and is aware pt is dc'ing today and will need a portable tank brought to the hospital. Referral faxed at this time.
--- NOTE | 2021-04-21 17:52 | PCM.DC ---
Discharge Instructions Diet Discharge Diet: No restrictions Activity Discharge Activity: Return to Normal Activity Follow Up Care Test Results: Test results from this visit will be discussed in further detail at your follow-up appointment, if applicable. Discharge Plan Admission Admit Date/Time: 04/09/21 10:57 Primary Reason for Your Visit: covid-19 pneumonia, respiratory failure Attending Provider: Alexis Faustin Primary Care Provider: Lito Domínguez Consulting Providers: Joe Forman ; Reza Christianson Instructions Additional Instructions / Restrictions: Wear oxygen at 6 L/min via nasal cannula at all times, buy a pulse ox monitor, if your pulse ox falls below 88%, notify your primary care physician for further instructions, if you become more short of breath, come to the emergency room for evaluation. Recommend you obtain a COVID-19 vaccine in 2 months Discharge Orders/Prescriptions Prescriptions: Continued lisinopril 10 mg tablet 10 mg PO DAILY RF: 0 Referrals / Follow Up: Lito Domínguez MD [Primary Care Provider] - See Referral Note (In 1 to 2 weeks) Disposition Disposition (needs filled in before D/C Order can be placed): Home, Self Care
--- NOTE | 2021-04-21 17:58 | PCM.DC.SUM ---
Providers Date of Admission: 04/09/21 Date of Discharge: 04/21/21 Primary Care Physician: Dr. Lito Domínguez MD Consultations 04/12/21 07:45 Consult: Infectious Disease Routine Consulting Provider: Joe Forman Reason for Consult: Possible Baricitinib EMERGENT Consult: No Notified: Yes Date Notified: 04/12/21 Time Notified: 07:45 Method of Notification: Text 04/12/21 11:29 Consult: Slat Twister / Pulmonary Medicine Routine Consulting Provider: Reza Christianson Reason for Consult: worsening resp status, covid EMERGENT Consult: No Notified: Yes Date Notified: 04/12/21 Time Notified: 11:29 Method of Notification: Text Reason For Visit: COVID19 PNEUMONIA Diagnosis Discharge Diagnosis (1) Acute respiratory failure with hypoxia: Status: Acute Code(s): J96.01 - Acute respiratory failure with hypoxia Plan: 1. COVID-19 pneumonia #2 acute hypoxic respiratory failure #3 essential hypertension-patient will remain on lisinopril Medications at Discharge Home Medications lisinopril 10 mg PO DAILY 04/09/21 Hospital Course Operations None Procedures None Summary of Care Provided Minutes Spent on Discharge: 31 Hospital Course: This 61-year-old white male presented to the emergency room at [facility] for evaluation of fatigue and shortness of breath, he noted his pulse ox at home was low at 86 on room air. Work-up in the emergency room included a chest x-ray which showed bilateral infiltrates suggestive of COVID-19 pneumonia, patient's COVID antigen test was positive, patient underwent a CTA of the chest due to an elevated D-dimer and it showed no evidence of pulmonary emboli. Patient's creatinine was 1.3 and BUN was 28. Patient was admitted to [facility] for COVID-19 pneumonia, IV dexamethasone was administered, patient was not a candidate for remdesivir treatment due to his COVID symptoms appearing 11 days prior. Patient was seen during his hospitalization by infectious diseases and pulmonary medicine, he was placed on baricitinib due to worsening pulse ox, patient's hospital course was slow but his oxygenation finally improved so that the patient could be discharged on supplemental oxygen to his home. On 04/21/2021, patient was seen and examined: On examination he appeared in good health and spirits. Vital signs as documented. Skin warm and dry and without overt rashes. Neck without JVD, neck was supple, trachea midline, thyroid was normal. Lungs clear bilaterally, normal air movement was noted. Heart exam notable for regular rhythm, normal sounds and absence of murmurs, rubs or gallops. Abdomen unremarkable and without evidence of organomegaly, masses, or abdominal aortic enlargement. Bowel sounds are present, abdomen is not distended. Extremities nonedematous, no cyanosis was noted, no clubbing was noted. Neuro: Cranial nerves II through XII are grossly intact, no focal motor deficits were noted, sensation to light touch and pinprick intact, motor exam 5/5 throughout. Psych: Patient is alert and oriented x3, he does not appear anxious or depressed, he does not appear agitated. On 04/21/2021, patient was discharged home in stable condition, he required 6 L of nasal cannula oxygen at all times-at rest and during ambulation-he was expected to wear this oxygen as directed inside and outside his home. Weight / BMI Weight Weight: 102.965 kg Body Mass Index (BMI) 37.8 ABG / Lab / Microbiology Data Result Diagrams: 04/18/21 05:50 04/18/21 05:50 Microbiology: Microbiology 04/16/21 16:10 Sputum, Expectorated/Coughed Gram Stain - Final 04/16/21 16:10 Sputum, Expectorated/Coughed Respiratory Culture - Final 04/09/21 08:33 Blood Culture (Wb) - Anticubital Left Blood Culture - Final No growth in 5 days. 04/09/21 08:40 Blood Culture (Wb) - Anticubital Right Blood Culture - Final No growth in 5 days. 04/09/21 11:51 Nasal Secretion SARS-CoV-2 Antigen (Rapid) - Final SARS-CoV-2 (COVID 19) D/C Instructions Discharge Diet: No restrictions Meaningful Use Info Meaningful Use Diagnoses (Choose all that apply): None applicable Discharge Plan Admission Admit Date/Time: 04/09/21 10:57 Primary Reason for Your Visit: covid-19 pneumonia, respiratory failure Attending Provider: Alexis Faustin Primary Care Provider: Lito Domínguez Consulting Providers: Joe Forman ; Reza Christianson Instructions Additional Instructions / Restrictions: Wear oxygen at 6 L/min via nasal cannula at all times, buy a pulse ox monitor, if your pulse ox falls below 88%, notify your primary care physician for further instructions, if you become more short of breath, come to the emergency room for evaluation. Recommend you obtain a COVID-19 vaccine in 2 months Discharge Orders/Prescriptions Prescriptions: Continued lisinopril 10 mg tablet 10 mg PO DAILY RF: 0 Referrals / Follow Up: Lito Domínguez MD [Primary Care Provider] - See Referral Note (In 1 to 2 weeks) Disposition Disposition (needs filled in before D/C Order can be placed): Home, Self Care Charges/Coding Visit Charges Inpatient E&M: 81804 Disch Hosp
--- NOTE | 2021-04-21 18:36 | NURSING ---
Reviewed discharge paperwork with patient. bringing O2 tank that was delivered to the house up to the room. Pt ready for discharge. Denies any questions.
== END 2021-04-21 18:45 | disposition home or self-care (01) | DRG 177 ==
LOC: ED 10:37 → MS3 11:49
PROVIDERS: Family Medicine; Internal Medicine Critical Care Medicine; Internal Medicine Infectious Disease; Admitting Provider Internal Medicine; Emergency Provider Emergency Medicine; PCP Family Medicine; Visit Provider Internal Medicine
DX: U07.1 COVID-19 (principal); J96.01 Acute respiratory failure with hypoxia; J12.82 Pneumonia due to coronavirus disease 2019; I10 Essential (primary) hypertension; E66.9 Obesity, unspecified; Z68.37 Body mass index [BMI] 37.0-37.9, adult; Z79.899 Other long term (current) drug therapy; R79.89 Other specified abnormal findings of blood chemistry
CPT/HCPCS: 36415; 71045; 71275; 80048; 80053; 83605; 83880; 84075; 84145; 85025; 85379; 86140; 87040; 87070; 87205; 87426; 94003; 94660; 94668; 94762; 99251; 99285; J7030; J7050; Q9967; A4216; G0463; J0248; J1940

== ENCOUNTER 2021-04-25 13:56 | Inpatient (IN) | payer MEDICARE, SELFPAY ==
[2021-04-25] VITALS (13 sets, daily range): BP systolic 116–129; BP diastolic 64–78; PULSE 98–125; RESP 12–39; TEMP 36.9–37.5; O2SAT 90–99; BMI 39.7; BMI 37.0
--- NOTE | 2021-04-25 14:13 | EKG12_ITS ---
Test Reason : SOB Blood Pressure : / mmHG Vent. Rate : 107 BPM Atrial Rate : 107 BPM P-R Int : 166 ms QRS Dur : 076 ms QT Int : 328 ms P-R-T Axes : 035 003 029 degrees QTc Int : 437 ms Sinus tachycardia Otherwise normal ECG Confirmed by PATRICE WOOTEN, MARISOL ([id number]), photography editor JOSH ZHAO ([id number]) on 04/26/2021 1:04:44 PM Referred By: MUKUND Confirmed By:MARISOL IBRAHIM MD
--- NOTE | 2021-04-25 14:14 | CT_ITS ---
HISTORY: hypoxia EXAMINATION: CTA Chest WO/W Contrast Injection TECHNIQUE: Helically acquired images were obtained of the chest following IV contrast as per pulmonary angiogram protocol with 3D reconstructions. A radiation dose optimization technique was used for this scan. IV Contrast dosage and agent: 100mL [id number] COMPARISON: 04/09/21 FINDINGS: LUNGS, PLEURA AND LARGE AIRWAYS: Diffuse progression of bilateral ground glass opacities and interstitial thickening with large areas of confluence in the upper and lower lobes bilaterally. No pleural effusions or pneumothorax. THYROID: No thyroid lesions. PULMONARY ARTERIES: Severe breathing motion artifact limits evaluation of the distal segmental branches bilaterally. No central or perihilar pulmonary emboli bilaterally. AORTA AND GREAT VESSELS: No aneurysm or dissection. HEART AND PERICARDIUM: Heart size is normal. No pericardial effusion. MEDIASTINUM AND KALEB: No mediastinal or hilar adenopathy. Esophagus is unremarkable. No hiatal hernia. UPPER ABDOMEN: No acute pathology. Stable hepatic cysts. BONES: No acute or aggressive abnormality. CT/CTA Chest W/WO Contrast IMPRESSION: CTA images limited by severe motion artifact. No central or perihilar pulmonary emboli. Distal pulmonary emboli cannot be entirely excluded. Progression of bilateral airspace disease consistent with atypical or viral pneumonia. Individualized dose optimization techniques were used for this CT. at 1612 Reported and signed by: Jan Guzman MD Electronically Signed: Jan Guzamn MD at 16:11 EST Tel , Service support ,
--- NOTE | 2021-04-25 14:39 | RAD_ITS ---
HISTORY: hypoxia EXAMINATION/TECHNIQUE: XR Chest 1 View: Portable upright AP chest x-ray COMPARISON: 04/09/21 FINDINGS: LINES/DEVICES: None. LUNGS: Diffuse increased and bilateral airspace disease without consolidation or pleural effusion. MEDIASTINUM AND CARDIOVASCULAR STRUCTURES: Cardiac silhouette stable. BONES AND SOFT TISSUES: No acute bony abnormalities. RAD/Chest 1 View (Portable) IMPRESSION: Diffuse progression of bilateral airspace disease consistent with pneumonia including atypical or viral pneumonia. at 1512 Reported and signed by: Jan Guzman MD Electronically Signed: Jan Guzman MD at 15:11 EST Tel , Service support ,
[2021-04-25 15:03] LABS: Absolute Lymphocyte Count 0.71 X10^3/uL (0.83-4.51); Basophil# 0.01 X10^3/uL; Basophil% 0.1 % (0-1); Eosinophil# 0.04 X10^3/uL; Eosinophils% 0.3 % (0-5); Hematocrit 35.2 % (40-54); Lymphocyte # 0.71 X10^3/ul (0.83-4.51); Lymphocyte % 5.6 % (19-41); Mean Corp Hgb Conc 34.1 g/dL (32-36); Mean Corpuscular Hgb 29.1 pg (27.0-32.0); Mean Corpuscular Volume 85.2 fL (80-94); Monocyte# 0.85 X10^3/uL; Monocyte% 6.7 % (0-10); NRBC Flagged by Analyzer 0 % (0-5); Neutrophil # 11.03 X10^3/uL (2.7-7.7); Neutrophil % 86.4 % (47-70); Platelet Count 228 K/mm3 (150-450); RBC Distribution Width SD 43.2 fl (35.1-43.9); Red Blood Count 4.13 M/mm3 (4.6-6.2); White Blood Count 12.8 K/mm3 (4.4-11.0)
[2021-04-25 15:15] LABS: ALB/GLOB Ratio 0.5 RATIO (0.9-2.4); AST(SGOT) 27 U/L (15-37); Alanine Aminotransfer ALT/SGPT 51 U/L (16-61); Albumin, Serum 2.3 g/dL (3.2-5.0); Alkaline Phosphatase 109 U/L (45-117); Anion Gap 8 (5-15); BUN 19 mg/dL (7-18); BUN/Creat Ratio 19.1 RATIO (10-20); Calcium,Total 8.4 mg/dL (8.5-10.1); Chloride 98 mmol/L (98-107); EST Glomerular Filtration Rate 81 mL/min (>60); Est Glom Filt Rate - Afr Amer 99 mL/min (>60); Estimated Creatinine Clearance 68.33 ml/min; Globulin 5.1 g/dL (2.2-4.2); Glucose 103 mg/dL (74-106); Lactic Acid 1.1 mmol/L (0.4-1.9); Potassium 4.4 mmol/L (3.5-5.1); Protein, Total 7.4 g/dL (6.4-8.2); Sodium Level 132 mmol/L (136-145); Troponin-I HS 67 pg/mL (3.0-78.0)
[2021-04-25 15:19] LABS: International Normalized Ratio 1.3; Prothrombin Time (Protime)PT. 15.2 SECONDS (11.7-14.9)
[2021-04-25 15:20] LABS: Partial Thromboplast Time 35.7 Seconds (24.1-36.2)
--- NOTE | 2021-04-25 16:27 | PCM.HP.STD ---
HPI - General General Date of Admission: 04/25/21 HPI Narrative PAPITO MEDINA, is a 61 M with a PMH as outlined who presented via the ED on 04/25/2021 with a complaint of shortness of breath and fatigue. He was just discharged from the hospital about 4 days prior (04/23/2021)/. to this admission after being managed for acute hypoxic respiratory failure due to covid. During the previous admission, he was treated with dexamethasone and baricitinib. He was on nonrebreather oxygen when he came back. HE says his shortness of breath worsened when he went home, and so decided to come back today,. He had to be transitioned to BIPAP on arrival in [facility] ED. He denied any chest pain, palpitations, dizziness, nausea, vomiting, diarrhea, fever or chills. Vitals were BP of 129/78, MN of 106, RR of 36 and temp of 98.4F. He was saturating at 97% on BIPAP. Labs showed wbc of 12.8, Hb of 12 and platelets of 228. Chemistry was significant for sodium of 132. CXR showed diffuse progression fo bilateral airspace disease consistent with pneumonia, and CTA of the chest showed progression of bilateral airpsace disease consistent with atypical or viral pneumonia. He is being admitted to be managed for acute hypoxic respiratory failure due to worsening covid 19 pneumonia. [facility] Medical History Carpal tunnel syndrome Empyema lung Hernia HTN (hypertension) Liver abscess due to bacteria Obesity Home Medications lisinopril 10 mg PO DAILY 04/09/21 [History Last Taken Unknown] Allergy/AdvReac Type Severity Reaction Status Date / Time No Known Allergies Allergy Verified 04/09/21 08:06 Surgical History History of cholecystectomy Social History Smoking Status: Never smoker ROS Constitutional Constitutional: Reports fatigue, malaise and weakness; Denies anorexia, change in weight, chills or fever(s) Eyes Eyes: Denies change in vision ENT HEENT: Denies dysphagia, headache(s), nasal congestion or nasal discharge Cardiovascular Cardiovascular: Reports dyspnea on exertion, orthopnea and rapid heart rate; Denies chest pain, lightheadedness, palpitations, paroxysmal nocturnal dyspnea or syncope Respiratory/Chest Respiratory/Chest: Reports cough, dyspnea, productive cough, shortness of breath at rest and shortness of breath with exertion; Denies excessive phlegm production, hemoptysis or wheezing Gastrointestinal Gastrointestinal: Denies abdominal pain, constipation, diarrhea, dyspepsia, nausea or vomiting Genitourinary Genitourinary: Denies burning urination or dysuria Musculoskeletal Musculoskeletal: Denies arthralgias, back pain, joint pain or joint swelling Neurologic Neurologic: Denies confusion, dizziness, focal weakness, headache(s), numbness or seizure-like activity Psychiatric Psychiatric: Denies anxiety Vital Signs Vital Signs Vital Signs: 04/25/21 13:58 04/25/21 14:06 04/25/21 14:13 Temperature 98.4 F 98.9 F Temperature Source Temporal Oral Pulse Rate 113 H 112 H 125 H Respiratory Rate 30 H 34 H 39 H Respiratory Effort Short of Breath Labored Respiratory Depth Shallow Respiratory Pattern Tachypnea Tachypnea Blood Pressure 118/77 118/77 Blood Pressure Mean 90 90 Pulse Ox 93 93 92 Oxygen Delivery Method Non-Rebreather Bi-pap Oxygen Flow Rate (L/min) 15 15 Fraction of Inspired Oxygen (FIO2) 65 04/25/21 14:19 04/25/21 15:13 Temperature 98.6 F 98.4 F Temperature Source Temporal Temporal Pulse Rate 109 H 106 H Respiratory Rate 38 H 36 H Respiratory Effort Respiratory Depth Respiratory Pattern Blood Pressure 120/64 129/78 H Blood Pressure Mean 82 95 Pulse Ox 95 97 Oxygen Delivery Method Bi-pap Bi-pap Oxygen Flow Rate (L/min) Fraction of Inspired Oxygen (FIO2) Weight Weight: 238 lb 15.697 oz Body Mass Index (BMI) 39.7 Physical Exam Const alert and oriented x3 General Appearance: cooperative HEENT normocephalic, head/scalp atraumatic and hearing grossly normal bilaterally HEENT Narrative: dry mucosal membranes Eyes PERRL, EOMs intact bilaterally and conjunctivae normal Neck no lymphadenopathy Resp Resp Narrative: tachypneic, on BIPAP. diminished breath sounds bibasally, no wheezes or crackles. On BIPAP Cardio regular rhythm, S1 normal heart sound, S2 normal heart sound and no murmurs Cardio Narrative: tachycardic GI normal to inspection, nondistended, normoactive bowel sounds, soft to palpation, non-tender, non-distended and hepatosplenomegaly Extremity normal to inspection, full ROM and no clubbing, cyanosis or edema Peripheral Pulses: Yes pulses 2+ throughout Skin no rashes or lesions noted Neuro oriented x3, CN's II-XII intact bilaterally and moves all extremities Sensorium / Orientation: awake and alert Psych affect normal Results Lab / Micro Data Result Diagrams: 04/25/21 14:25 04/25/21 14:25 Labs: Laboratory Results - last 24 hr 04/25/21 14:25: WBC 12.8 H, RBC 4.13 L, Hgb 12.0 L, Hct 35.2 L, MCV 85.2, MCH 29.1, MCHC 34.1, RDW Std Deviation 43.2, RDW Coeff of [place] 14.0, Plt Count 228, MPV 9.0, Immature Gran % (Auto) 0.900, Neut % (Auto) 86.4 H, Lymph % (Auto) 5.6 L, [place] % (Auto) 6.7, Eos % (Auto) 0.3, Baso % (Auto) 0.1, Absolute Neuts (auto) 11.0 H, Absolute Lymphs (auto) 0.71 L, Nucleated RBC % 0 04/25/21 14:25: PT 15.2 H, INR 1.3, APTT 35.7 04/25/21 14:25: Sodium 132 L, Potassium 4.4, Chloride 98, Carbon Dioxide 26.0, Anion Gap 8, BUN 19 H, Creatinine 1.00, Estim Creat Clear Calc 68.33, Est GFR (MDRD) Af Amer 99, Est GFR (MDRD) Non-Af 81, BUN/Creatinine Ratio 19.1, Glucose 103, Calcium 8.4 L, Total Bilirubin 1.00, AST 27, ALT 51, Alkaline Phosphatase 109, Troponin I High Sens 67, Total Protein 7.4, Albumin 2.3 L, Globulin 5.1 H, Albumin/Globulin Ratio 0.5 L 04/25/21 14:25: Lactic Acid 1.1 Radiology Impression Chest CTA 04/25/21 14:14 IMPRESSION: CTA images limited by severe motion artifact. No central or perihilar pulmonary emboli. Distal pulmonary emboli cannot be entirely excluded. Progression of bilateral airspace disease consistent with atypical or viral pneumonia. Individualized dose optimization techniques were used for this CT. at 1612 Reported and signed by: Jan Guzman MD Electronically Signed: Jan Guzman MD at 16:11 EST Tel , Service support , Chest X-Ray 04/25/21 14:39 IMPRESSION: Diffuse progression of bilateral airspace disease consistent with pneumonia including atypical or viral pneumonia. at 1512 Reported and signed by: Jan Guzman MD Electronically Signed: Jan Guzman MD at 15:11 EST Tel , Service support , Assessment & Plan Assessment/Plan (1) Acute respiratory failure with hypoxia: (2) COVID-19: PLAN: #Acute hypoxic respiratory failure due to covid 19 pneumonia Admit to ICU Completed a course of baricitinib and Decadron during previous admission and was just discharged 4 days ago. Titrate oxygen on BiPAP to maintain saturation above 90%. Get blood cultures and sputum cultures. Start on empiric antimicrobials in light of worsening respiratory status. Completed a course of Decadron but will repeat again. Breathing treatments with bronchodilators. Consult roll wrapper. CT of the chest was negative for PE #Hypertension: On lisinopril DVT prophylaxis: Lovenox CODE STATUS:full code. Patient counseled extensively about different types of CODE STATUS including full code, DNR CCA and DNR CCA. Patient elects to be full code. Total [id number] time 17 minutes. Charges/Coding Visit Charges Inpatient E&M: 97772 Init Hosp L3 Multi [facility] Codes Hospitalists' Procedures Procedures: 47807 Advncd Care Plan 30 Min
--- NOTE | 2021-04-25 17:08 | EDS_ITS ---
HPI History of Present Illness Chief Complaint: Shortness of Breath Narrative Narrative: 61-year-old male with history of hypertension presenting with respiratory distress from home. Patient recently admitted on the for hypoxic respiratory failure secondary to COVID-19 pneumonitis. Patient states he was through most of his remdesivir treatments and states he believes he received 10. He was given dexamethasone in the hospital. He was released 04/21/2021 to home. He was released on 6 L of oxygen. He notes that Monday he started having oxygen that were in the 90s. He states he is sporadic and resolved. Today he reports that his oxygen has been lower. He was brought in by EMS on 15 L nonrebreather. He states he is not have any chest pain. He states he does not really even feel short of breath although his low oxygen levels have affected him. He is not having fever or chills. No nausea or vomiting. He denies abdominal pain. [facility] Medical History Carpal tunnel syndrome Empyema lung Hernia HTN (hypertension) Liver abscess due to bacteria Obesity Home Medications lisinopril 10 mg PO DAILY 04/09/21 [History Last Taken Unknown] Allergy/AdvReac Type Severity Reaction Status Date / Time No Known Allergies Allergy Verified 04/09/21 08:06 Surgical History History of cholecystectomy Social History Smoking Status: Never smoker ROS ROS ED Constitutional Constitutional ED: Denies chills or fever(s) Eyes Eyes: Denies blurry vision or diplopia ENT ENT ED: Denies rhinorrhea or sore throat Cardiovascular Cardiovascular: Denies chest pain or palpitations Respiratory/Chest Respiratory/Chest: Reports dyspnea Gastrointestinal Gastrointestinal: Denies abdominal pain, nausea or vomiting Genitourinary Genitourinary ED: Denies dysuria or hematuria Musculoskeletal Musculoskeletal: Denies arthralgias or myalgias Integumentary Denies abscess or rash Neurologic Neurologic: Denies headache(s) or weakness Psychiatric Psychiatric: Denies anxiety or depression EXAM Physical Exam Const Vital Signs: 04/25/21 13:58 04/25/21 14:06 04/25/21 14:13 Temperature 98.4 F 98.9 F Temperature Source Temporal Oral Pulse Rate 113 H 112 H 125 H Respiratory Rate 30 H 34 H 39 H Respiratory Effort Short of Breath Labored Respiratory Depth Shallow Respiratory Pattern Tachypnea Tachypnea Blood Pressure 118/77 118/77 Blood Pressure Mean 90 90 Pulse Ox 93 93 92 Oxygen Delivery Method Non-Rebreather Bi-pap Oxygen Flow Rate (L/min) 15 15 Fraction of Inspired Oxygen (FIO2) 65 04/25/21 14:19 04/25/21 15:13 04/25/21 16:00 Temperature 98.6 F 98.4 F 98.7 F Temperature Source Temporal Temporal Temporal Pulse Rate 109 H 106 H 106 H Respiratory Rate 38 H 36 H 30 H Respiratory Effort Respiratory Depth Respiratory Pattern Blood Pressure 120/64 129/78 H 126/68 H Blood Pressure Mean 82 95 87 Pulse Ox 95 97 95 Oxygen Delivery Method Bi-pap Bi-pap Bi-pap Oxygen Flow Rate (L/min) Fraction of Inspired Oxygen (FIO2) 04/25/21 16:50 Temperature 98.4 F Temperature Source Temporal Pulse Rate 106 H Respiratory Rate 33 H Respiratory Effort Respiratory Depth Respiratory Pattern Blood Pressure 123/70 H Blood Pressure Mean 87 Pulse Ox 96 Oxygen Delivery Method Bi-pap Oxygen Flow Rate (L/min) Fraction of Inspired Oxygen (FIO2) Positive well nourished General Appearance ED: NAD; Negative for pallor HEENT Reports dry mucous membranes atraumatic Mouth ED: Yes dry mucous membranes Mouth: dry mucous membranes Eyes PERRL and EOMs intact bilaterally Neck no lymphadenopathy and supple Resp Resp Narrative: Tachypneic Auscultation: rales right base and mid and left base Cardio regular rhythm Rate: tachycardic Extremity normal to inspection General Extremety ED: Negative for edema or tenderness General Extremity: Negative for edema Neuro oriented x3 and CN's II-XII intact bilaterally Sensorium / Orientation: alert Psych mental status grossly normal Skin General Skin Exam: Negative for jaundice or pallor MDM MDM MDM Narrative Medical decision making narrative: Patient presenting in respiratory distress. He was immediately switched to BiPAP and he is able to speak to me with BiPAP on. He states that he is mildly dyspneic but has been hypoxic throughout the weekend. EKG on my interpretation shows a sinus tachycardia with a ventricular rate of 107 bpm without sign of ischemic change. Chest x-ray on my interpretation shows bilateral pneumonia which appears worse than previous chest x-ray. The radiologist agree. CBC shows a slight leukocytosis of 12.8. Hemoglobin Hockert are stable. INR slightly prolonged at 15.2 PTT are normal. Renal function and electrolytes are unremarkable. LFTs are normal. Lactic acid 1.1. Urinalysis is pending. Obtained a CTA of the chest which is negative for PE but does show progression of COVID-19 pneumonitis. Since patient is on BiPAP he will need to be admitted to the hospital. Impression: 1. Hypoxic respiratory failure 2. COVID-19 pneumonitis Lab Data Attestation: I reviewed the patient's lab results. Labs: Laboratory Results - last 24 hr 04/25/21 04/25/21 04/25/21 14:25 14:25 14:25 WBC 12.8 H RBC 4.13 L Hgb 12.0 L Hct 35.2 L MCV 85.2 MCH 29.1 MCHC 34.1 RDW Std Deviation 43.2 RDW Coeff of [place] 14.0 Plt Count 228 MPV 9.0 Immature Gran % (Auto) 0.900 Neut % (Auto) 86.4 H Lymph % (Auto) 5.6 L [place] % (Auto) 6.7 Eos % (Auto) 0.3 Baso % (Auto) 0.1 Absolute Neuts (auto) 11.0 H Absolute Lymphs (auto) 0.71 L Nucleated RBC % 0 PT 15.2 H INR 1.3 APTT 35.7 Sodium 132 L Potassium 4.4 Chloride 98 Carbon Dioxide 26.0 Anion Gap 8 BUN 19 H Creatinine 1.00 Estim Creat Clear Calc 68.33 Est GFR (MDRD) Af Amer 99 Est GFR (MDRD) Non-Af 81 BUN/Creatinine Ratio 19.1 Glucose 103 Lactic Acid Calcium 8.4 L Total Bilirubin 1.00 AST 27 ALT 51 Alkaline Phosphatase 109 Troponin I High Sens 67 Total Protein 7.4 Albumin 2.3 L Globulin 5.1 H Albumin/Globulin Ratio 0.5 L 04/25/21 14:25 WBC RBC Hgb Hct MCV MCH MCHC RDW Std Deviation RDW Coeff of [place] Plt Count MPV Immature Gran % (Auto) Neut % (Auto) Lymph % (Auto) [place] % (Auto) Eos % (Auto) Baso % (Auto) Absolute Neuts (auto) Absolute Lymphs (auto) Nucleated RBC % PT INR APTT Sodium Potassium Chloride Carbon Dioxide Anion Gap BUN Creatinine Estim Creat Clear Calc Est GFR (MDRD) Af Amer Est GFR (MDRD) Non-Af BUN/Creatinine Ratio Glucose Lactic Acid 1.1 Calcium Total Bilirubin AST ALT Alkaline Phosphatase Troponin I High Sens Total Protein Albumin Globulin Albumin/Globulin Ratio Radiography Diagnostic Testing: Clinical Impression(s) from Imaging Studies Chest CTA 04/25/21 14:14 IMPRESSION: CTA images limited by severe motion artifact. No central or perihilar pulmonary emboli. Distal pulmonary emboli cannot be entirely excluded. Progression of bilateral airspace disease consistent with atypical or viral pneumonia. Individualized dose optimization techniques were used for this CT. at 1612 Reported and signed by: Jan Guzman MD Electronically Signed: Jan Guzman MD at 16:11 EST Tel , Service support , Chest X-Ray 04/25/21 14:39 IMPRESSION: Diffuse progression of bilateral airspace disease consistent with pneumonia including atypical or viral pneumonia. at 1512 Reported and signed by: Jan Guzman MD Electronically Signed: Jan Guzman MD at 15:11 EST Tel , Service support , Discharge Plan Triage Chief Complaint: Shortness of Breath ED Provider: Cheikh Barron Dx/Rx/DC Orders Primary Care Provider: Lito Domínguez
[2021-04-25 19:34] LABS: Fibrinogen > 900 mg/dl (203-444)
[2021-04-25 19:36] LABS: D-Dimer Quantitative (DVT/PE) 3.42 FEU/ug/m (0.27-0.49)
[2021-04-25 19:38] LABS: BNP,B-Type NATRIURETIC PEPTIDE 37.1 pg/mL (0-100)
[2021-04-25 19:45] LABS: Procalcitonin 0.36 ng/mL (0.00-0.09)
[2021-04-25 20:04] LABS: CPK Total, Creatine Kinase 23 U/L (39-308); LDH 407 U/L (87-241); Troponin-I HS 92 pg/mL (3.0-78.0)
[2021-04-25 21:27] LABS: Troponin-I HS 104 pg/mL (3.0-78.0)
[2021-04-25] MEDS: dexAMETHasone 10 MG/ML Vial 6 MG IV (22:52)
[2021-04-25] MEDS: Acetaminophen 325 MG Tablet 650 MG PO (23:04)
[2021-04-25] MEDS: Enoxaparin 30 MG/0.3 ML Syringe SC (23:04)
[2021-04-25] MEDS: guaiFENesin 10 ML UDC (200MG/10ML) 20 ML PO (23:17)
[2021-04-26] VITALS (20 sets, daily range): BP systolic 90–126; BP diastolic 64–89; PULSE 83–102; RESP 12–32; TEMP 36.2–37.3; O2SAT 89–98
[2021-04-26 01:02] LABS: Mucous, Urine 0 SEEN /hpf (<or=2+); Red Blood Cells-Urine 0 SEEN /hpf (0-5); Squamous Epithelial Cells - UA 0 SEEN /hpf (0-5); White Blood Cells 0 SEEN /hpf (0-5)
--- NOTE | 2021-04-26 01:19 | PCM.RX.CS ---
Consult Pharmacy has been consulted to manage selected antiobiotic: Vancomycin Type of Consult: New start Labs: Sodium 132 mmol/L (136-145) L 04/25/21 14:25 Potassium 4.4 mmol/L (3.5-5.1) 04/25/21 14:25 Chloride 98 mmol/L (98-107) 04/25/21 14:25 Carbon Dioxide 26.0 mmol/L (21.0-32.0) 04/25/21 14:25 Anion Gap 8 (5-15) 04/25/21 14:25 BUN 19 mg/dL (7-18) H 04/25/21 14:25 Creatinine 1.00 mg/dL (0.70-1.30) 04/25/21 14:25 Est GFR (MDRD) Af Amer 99 mL/min (>60) 04/25/21 14:25 Est GFR (MDRD) Non-Af 81 mL/min (>60) 04/25/21 14:25 BUN/Creatinine Ratio 19.1 RATIO (10-20) 04/25/21 14:25 Glucose 103 mg/dL (74-106) 04/25/21 14:25 Weight used for dosin.9 kg Estimated Creatinine Clearance: 85.8 Goal Trough: 15-20 mcg/mL Pharmacy Plan for Drug Dosing: Pharmacy Service will continue to monitor and adjust dosing as required. Medications Vancomycin HCl 1,750 mg/ (Sodium Chloride) 535 mls @ 250 mls/hr IV Q12H ZELAL[place] Discontinued Medications Vancomycin HCl 2,000 mg/ (Sodium Chloride) 540 mls @ 250 mls/hr IV X1 ONE Stop: 04/25/21 22:09 Last Admin: 04/26/21 00:30 Dose: 250 mls/hr Documented by: Follow-Up Labs: Trough Vancomycin Labs to be done on [date and time ordered]: 04/27 @ 1200
[2021-04-26 01:35] LABS: Color, Urine Yellow (Yellow); Glucose, Dipstick Normal (Normal); Ketone-Dipstick 5 mg/dl (Negative); Leukocyte Esterase-Dipstick Negative /ul (Negative); Nitrite-Dipstick Negative (Negative); Occult Blood-Urine Negative /ul (Negative); Protein-Dipstick 15 mg/dl (Negative); Specific Gravity, Urine 1.015 (1.002-1.030); Urine Bilirubin Dipstick Negative (Negative); Urine Clarity Clear (Clear); Urine Urobilinogen 1 mg/dl (Normal)
[2021-04-26 01:45] LABS: Bacteria 1+ /hpf (None Seen)
[2021-04-26] MEDS: Acetaminophen 325 MG Tablet 650 MG PO ×3 (05:38→18:07)
[2021-04-26] MEDS: guaiFENesin 10 ML UDC (200MG/10ML) 20 ML PO ×3 (05:39→18:07)
[2021-04-26 07:27] LABS: Hematocrit 36.3 % (40-54); Hemoglobin 11.8 g/dL (13.0-16.5); Mean Corp Hgb Conc 32.5 g/dL (32-36); Mean Corpuscular Hgb 28.4 pg (27.0-32.0); Mean Corpuscular Volume 87.5 fL (80-94); Mean Platelet Vol. 8.8 fl (6.2-12.0); Platelet Count 204 K/mm3 (150-450); RBC Distribution Width CV 13.9 % (11.6-14.6); RBC Distribution Width SD 43.8 fl (35.1-43.9); Red Blood Count 4.15 M/mm3 (4.6-6.2); White Blood Count 9.5 K/mm3 (4.4-11.0)
--- NOTE | 2021-04-26 08:00 | CASEMGMT ---
Readmission chart review: 04/09/21-04/21/21 COVID pna 04/25/21-current Acute hypoxic resp failure d/t COVID
--- NOTE | 2021-04-26 08:00 | CASEMGMT ---
Readmission chart review: 04/09/21-04/21/21 COVID pna 04/25/21-current Acute hypoxic resp failure d/t COVID Pt initially presented to [facility] ED on 04/09/21 on day 11 of COVID with low oxygen level at home 82-86%. Pt was admitted for COVID pna and spent 13 days on MS3 for same. Pt was treated with dexamethasone and baricitinib. Pt went home on 6L continuous home oxygen thru [employer]. Pt returned to [facility] ED on 04/25/21 for sats in the 80's on the 6L at home and admitted to PCU. Per tailing machine operator, clinical suspicion for an element of cor pulmonale with progressive hypoxia and we will attempt to diurese. Pt given lasix 40 mg iv x1 this am. Pt is currently on 15L high flow nc and has total 925cc urine output so far today. CM to follow for any further discharge planning/needs. Geri ROBERTO CM
[2021-04-26 08:12] LABS: Anion Gap 9 (5-15); BUN 25 mg/dL (7-18); BUN/Creat Ratio 26.4 RATIO (10-20); Calcium,Total 8.2 mg/dL (8.5-10.1); Chloride 102 mmol/L (98-107); Creatinine, Serum 0.95 mg/dL (0.70-1.30); EST Glomerular Filtration Rate 86 mL/min (>60); Est Glom Filt Rate - Afr Amer 104 mL/min (>60); Estimated Creatinine Clearance 71.93 ml/min; Glucose 155 mg/dL (74-106); Potassium 4.5 mmol/L (3.5-5.1); Sodium Level 134 mmol/L (136-145)
[2021-04-26] MEDS: dexAMETHasone 10 MG/ML Vial 6 MG IV (08:28)
[2021-04-26] MEDS: Enoxaparin 30 MG/0.3 ML Syringe SC ×2 (08:28→22:38)
--- NOTE | 2021-04-26 08:29 | PN.CC_ITS ---
Assessment & Plan Assessment/Plan (1) Acute respiratory failure with hypoxia: (2) COVID-19: PLAN: RECOMMENDATIONS: 1. Consider discontinuation of Decadron 2. Encourage prone positioning, Acapella and incentive spirometer 3. Continue BiPAP with sleep. Wean nasal cannula as tolerated 4. Intermittent diuretics as necessary to maintain euvolemia. Challenge today 5. Continue empiric antibiotics pending cultures 6. Obtain uric acid level for possible gout IMPRESSIONS: 1. Acute hypoxic respiratory failure secondary to COVID-19 Patient is doing okay at this time. Patient with rapid readmission following discharge. Clinical suspicion for an element of cor pulmonale with progressive hypoxia. We will attempt to diurese. Patient currently is on Decadron, but this can likely be truncated in course given he recently completed a full 10 days. We will aggressively diurese. Empiric antibiotics pending cultures are reasonable. 2. Obesity/nonvaccinated status/hypertension Complicates care, management, recovery and prognosis. Patient with very poor insight into his overall condition and potential prognosis. Patient is a full code at this time. Acceptable control with baseline antihypertensives at this time. 3. Possible gout Patient with increased tenderness of the PIP joint of the great toe. Erythema is reportedly improved. Clinical suspicion for gout with improvement following steroids. We will obtain a uric acid level. Subjective Subjective Patient did okay overnight. Patient continues to report left great toe pain, but states the erythema is improved. Patient reported decompensation of the course of days following discharge. Patient feels better, but is currently requiring 65% Airvo to maintain saturations. Patient came back in because his saturations would not go up despite supplemental oxygen. Patient was able to tolerate BiPAP overnight and felt this was helpful. Objective Data Objective Data Vital Signs: Vital Signs Temp Pulse Resp BP Pulse Ox 36.2 C L 90 28 H 90/80 90 04/26/21 04:00 04/26/21 07:55 04/26/21 04:00 04/26/21 04:00 04/26/21 07:55 Oxygen Flow Rate (L/min) 50 Oxygen Delivery Method Airvo Weight: 100.924 kg Body Mass Index (BMI) 37.0 Intake & Output: Intake and Output for Last 24 Hours 04/24/21 04/25/21 04/26/21 23:59 23:59 23:59 Intake Total 640 / 640 Output Total 500 / 500 Balance 140 / 140 Lab / Micro Data Result Diagrams: 04/26/21 07:18 04/26/21 07:18 Labs: Laboratory Results - last 24 hr 04/25/21 14:25: WBC 12.8 H, RBC 4.13 L, Hgb 12.0 L, Hct 35.2 L, MCV 85.2, MCH 29.1, MCHC 34.1, RDW Std Deviation 43.2, RDW Coeff of [place] 14.0, Plt Count 228, MPV 9.0, Immature Gran % (Auto) 0.900, Neut % (Auto) 86.4 H, Lymph % (Auto) 5.6 L, [place] % (Auto) 6.7, Eos % (Auto) 0.3, Baso % (Auto) 0.1, Absolute Neuts (auto) 11.0 H, Absolute Lymphs (auto) 0.71 L, Nucleated RBC % 0 04/25/21 14:25: PT 15.2 H, INR 1.3, APTT 35.7 04/25/21 14:25: Sodium 132 L, Potassium 4.4, Chloride 98, Carbon Dioxide 26.0, Anion Gap 8, BUN 19 H, Creatinine 1.00, Estim Creat Clear Calc 68.33, Est GFR (MDRD) Af Amer 99, Est GFR (MDRD) Non-Af 81, BUN/Creatinine Ratio 19.1, Glucose 103, Calcium 8.4 L, Total Bilirubin 1.00, AST 27, ALT 51, Alkaline Phosphatase 109, Troponin I High Sens 67, Total Protein 7.4, Albumin 2.3 L, Globulin 5.1 H, Albumin/Globulin Ratio 0.5 L 04/25/21 14:25: Lactic Acid 1.1 04/25/21 14:25: B-Natriuretic Peptide 37.1 04/25/21 14:25: Fibrinogen > 900 H, D-Dimer Quant (PE/DVT) 3.42 H* 04/25/21 14:25: Procalcitonin 0.36 H 04/25/21 19:00: Lactate Dehydrogenase 407 H, Total Creatine Kinase 23 L, Troponin I High Sens 92 H, C-React Prot Ext Range 281.00 H 04/25/21 20:50: Troponin I High Sens 104 H 04/26/21 00:33: Urine Color Yellow, Urine Clarity Clear, Urine pH 5.0, Ur Specific [place] 1.015, Urine Protein 15 H, Urine Glucose (UA) Normal, Urine Ketones 5 H, Urine Occult Blood Negative, Urine Nitrite Negative, Urine Bilirubin Negative, Urine Urobilinogen 1 H, Ur Leukocyte Esterase Negative, Urine RBC 0 SEEN, Urine WBC 0 SEEN, Ur Squamous Epith Cells 0 SEEN, Urine Bacteria 1+, Urine Mucus 0 SEEN 04/26/21 07:18: WBC 9.5, RBC 4.15 L, Hgb 11.8 L, Hct 36.3 L, MCV 87.5, MCH 28.4, MCHC 32.5, RDW Std Deviation 43.8, RDW Coeff of [place] 13.9, Plt Count 204, MPV 8.8 04/26/21 07:18: Sodium 134 L, Potassium 4.5, Chloride 102, Carbon Dioxide 23.0, Anion Gap 9, BUN 25 H, Creatinine 0.95, Estim Creat Clear Calc 71.93, Est GFR (MDRD) Af Amer 104, Est GFR (MDRD) Non-Af 86, BUN/Creatinine Ratio 26.4 H, Glucose 155 H, Calcium 8.2 L Micro: Microbiology 04/25/21 Unknown Urine, Clean Catch Legionella Antigen - Final 04/25/21 Unknown Urine, Clean Catch Streptococcus pneumoniae Antigen (M - Final Radiography Diagnostic Testing: Radiology Impression Chest CTA 04/25/21 14:14 IMPRESSION: CTA images limited by severe motion artifact. No central or perihilar pulmonary emboli. Distal pulmonary emboli cannot be entirely excluded. Progression of bilateral airspace disease consistent with atypical or viral pneumonia. Individualized dose optimization techniques were used for this CT. at 1612 Reported and signed by: Jan Gumzan MD Electronically Signed: Jan Guzman MD at 16:11 EST Tel , Service support , Chest X-Ray 04/25/21 14:39 IMPRESSION: Diffuse progression of bilateral airspace disease consistent with pneumonia including atypical or viral pneumonia. at 1512 Reported and signed by: Jan Guzman MD Electronically Signed: Jan Guzman MD at 15:11 EST Tel , Service support , Physical Exam Const alert, oriented x3 and no apparent distress Constitutional Narrative: On Airvo during my evaluation General Appearance: cooperative and well developed Nutritional Appearance: obese HEENT normocephalic and moist oral mucous membranes Eyes PERRL, EOMs intact bilaterally and conjunctivae normal Neck nuchal rigidity, supple, no JVD, thyroid normal and no carotid bruits General: trachea midline Chest inspection of chest normal Chest: symmetrical chest wall rise; Negative for crepitus Resp Effort and Inspection: actively coughing dry Auscultation: diminished lung sounds; Negative for rales, rhonchi or wheezes Cardio regular rate, regular rhythm, S1 normal heart sound, S2 normal heart sound, no murmurs, no rub and no gallops GI normal to inspection, nondistended, normoactive bowel sounds, soft to palpation, non-tender and non-distended Extremity Extremity Narrative: Erythema and tenderness noted at the PIP joint of great toe General Extremity: edema; Negative for clubbing or cyanosis Skin no rashes or lesions noted General Skin Exam: no breakdown Neuro oriented x3, CN's II-XII intact bilaterally, no focal motor deficits and no sensory deficits noted Sensorium / Orientation: awake and alert Speech: speech normal Psych thought process normal and affect normal Charges/Coding Visit Charges Inpatient E&M: 38942 Subs Hosp L3
[2021-04-26 08:56] LABS: Uric Acid 6.7 mg/dL (3.5-7.2)
[2021-04-26] MEDS: Furosemide 40 MG/4 ML Vial IV (09:25)
[2021-04-26] MEDS: 0.9% Saline Lock 10 ML Syringe IV (09:26)
[2021-04-26] MEDS: Menthol/Lanolin/Calamine/Znox 113 GM Tube 1 APPLIC TOPICAL ×2 (12:54→22:39)
--- NOTE | 2021-04-26 18:00 | PCM.PN.HOSP ---
Subjective Subjective Stated that his left great toe was very tender but has since improved. Now only slightly tender. Was doing well at home up until a couple days prior to admission where he started getting more short of breath progressively over the weekend. Objective Data Objective Data Vital Signs: Vital Signs Temp Pulse Resp BP Pulse Ox 36.5 C L 92 20 H 107/64 90 04/26/21 12:58 04/26/21 15:20 04/26/21 12:58 04/26/21 12:58 04/26/21 17:31 Oxygen Flow Rate (L/min) 15 Oxygen Delivery Method High Flow Weight: 100.924 kg Body Mass Index (BMI) 37.0 Intake & Output: Intake and Output for Last 24 Hours 04/24/21 04/25/21 04/26/21 23:59 23:59 23:59 Intake Total 1375 / 1375 Output Total 500 / 500 Balance 875 / 875 Lab / Micro Data Result Diagrams: 04/26/21 07:18 04/26/21 07:18 Labs: Laboratory Results - last 24 hr 04/25/21 14:25: B-Natriuretic Peptide 37.1 04/25/21 14:25: Fibrinogen > 900 H, D-Dimer Quant (PE/DVT) 3.42 H* 04/25/21 14:25: Procalcitonin 0.36 H 04/25/21 19:00: Lactate Dehydrogenase 407 H, Total Creatine Kinase 23 L, Troponin I High Sens 92 H, C-React Prot Ext Range 281.00 H 04/25/21 20:50: Troponin I High Sens 104 H 04/26/21 00:33: Urine Color Yellow, Urine Clarity Clear, Urine pH 5.0, Ur Specific [place] 1.015, Urine Protein 15 H, Urine Glucose (UA) Normal, Urine Ketones 5 H, Urine Occult Blood Negative, Urine Nitrite Negative, Urine Bilirubin Negative, Urine Urobilinogen 1 H, Ur Leukocyte Esterase Negative, Urine RBC 0 SEEN, Urine WBC 0 SEEN, Ur Squamous Epith Cells 0 SEEN, Urine Bacteria 1+, Urine Mucus 0 SEEN 04/26/21 07:18: WBC 9.5, RBC 4.15 L, Hgb 11.8 L, Hct 36.3 L, MCV 87.5, MCH 28.4, MCHC 32.5, RDW Std Deviation 43.8, RDW Coeff of [place] 13.9, Plt Count 204, MPV 8.8 04/26/21 07:18: Sodium 134 L, Potassium 4.5, Chloride 102, Carbon Dioxide 23.0, Anion Gap 9, BUN 25 H, Creatinine 0.95, Estim Creat Clear Calc 71.93, Est GFR (MDRD) Af Amer 104, Est GFR (MDRD) Non-Af 86, BUN/Creatinine Ratio 26.4 H, Glucose 155 H, Calcium 8.2 L 04/26/21 07:18: Uric Acid 6.7 Micro: Microbiology 04/25/21 23:19 Sputum, Expectorated/Coughed Gram Stain - Final 04/25/21 Unknown Urine, Clean Catch Legionella Antigen - Final 04/25/21 Unknown Urine, Clean Catch Streptococcus pneumoniae Antigen (M - Final Physical Exam Const alert Constitutional Narrative: Up in chair on Airvo. Under no respiratory distress. Resp normal respiratory effort, no retractions, no use of accessory muscles and clear to auscultation bilaterally Cardio regular rate, regular rhythm, S1 normal heart sound and S2 normal heart sound GI normal to inspection, nondistended, normoactive bowel sounds, soft to palpation, non-tender and non-distended Extremity normal to inspection Assessment & Plan Assessment/Plan (1) Acute respiratory failure with hypoxia: (2) COVID-19: (3) Hypoxemia: PLAN: 1. Acute hypoxic respiratory failure Secondary to COVID-19 Additional work-up for bacterial pneumonia is currently pending Patient on empiric cefepime and vancomycin Furosemide challenge Wean oxygen as able 2. COVID-19 Onset was March 29 Discontinue isolation On short course of dexamethasone Unvaccinated 3. VTE prophylaxis with enoxaparin Charges/Coding Visit Charges Inpatient E&M: 08989 Subs Hosp L2
[2021-04-27] VITALS (14 sets, daily range): BP systolic 98–144; BP diastolic 63–86; PULSE 76–103; RESP 12–28; TEMP 36.1–36.8; O2SAT 89–96
[2021-04-27] MEDS: Acetaminophen 325 MG Tablet 650 MG PO ×4 (02:19→22:48)
[2021-04-27] MEDS: guaiFENesin 10 ML UDC (200MG/10ML) 20 ML PO ×4 (02:20→19:43)
[2021-04-27] MEDS: Menthol/Lanolin/Calamine/Znox 113 GM Tube 1 APPLIC TOPICAL ×3 (05:53→22:47)
[2021-04-27 06:53] LABS: Absolute Lymphocyte Count 0.38 X10^3/uL (0.83-4.51); Absolute Neutrophil Count 13.9 X10^3/uL (2.0-7.7); Basophil# 0.02 X10^3/uL; Basophil% 0.1 % (0-1); Hematocrit 37.8 % (40-54); Hemoglobin 12.2 g/dL (13.0-16.5); Lymphocyte # 0.38 X10^3/ul (0.83-4.51); Lymphocyte % 2.5 % (19-41); Mean Corp Hgb Conc 32.3 g/dL (32-36); Mean Corpuscular Hgb 29.4 pg (27.0-32.0); Mean Corpuscular Volume 91.1 fL (80-94); Mean Platelet Vol. 9.3 fl (6.2-12.0); Monocyte# 0.67 X10^3/uL; Monocyte% 4.5 % (0-10); NRBC Flagged by Analyzer 0 % (0-5); Neutrophil # 13.89 X10^3/uL (2.7-7.7); Neutrophil % 92.3 % (47-70); POSITIVE DIFFERENTIAL YES; Platelet Count 191 K/mm3 (150-450); RBC Distribution Width CV 13.7 % (11.6-14.6); RBC Distribution Width SD 45.5 fl (35.1-43.9); Red Blood Count 4.15 M/mm3 (4.6-6.2); White Blood Count 15.1 K/mm3 (4.4-11.0)
[2021-04-27 06:56] LABS: Differential Indicated SCAN CRITERIA MET
[2021-04-27 07:14] LABS: Anion Gap 7 (5-15); BUN 34 mg/dL (7-18); BUN/Creat Ratio 33.7 RATIO (10-20); Calcium,Total 8.7 mg/dL (8.5-10.1); Chloride 105 mmol/L (98-107); Creatinine, Serum 1.01 mg/dL (0.70-1.30); EST Glomerular Filtration Rate 80 mL/min (>60); Est Glom Filt Rate - Afr Amer 97 mL/min (>60); Estimated Creatinine Clearance 67.66 ml/min; Glucose 127 mg/dL (74-106); Potassium 4.3 mmol/L (3.5-5.1); Sodium Level 131 mmol/L (136-145)
[2021-04-27 07:22] LABS: Differential Comment SCANNED
[2021-04-27] MEDS: 0.9% Saline Lock 10 ML Syringe IV ×3 (08:33→22:56)
[2021-04-27] MEDS: Enoxaparin 30 MG/0.3 ML Syringe SC ×2 (08:34→22:48)
[2021-04-27] MEDS: Lisinopril 10 MG Tablet PO (08:34)
[2021-04-27] MEDS: Furosemide 40 MG/4 ML Vial IV (08:41)
--- NOTE | 2021-04-27 08:53 | PN.CC_ITS ---
Assessment & Plan Assessment/Plan (1) Acute respiratory failure with hypoxia: (2) COVID-19: PLAN: RECOMMENDATIONS: 1. Okay to discontinue Decadron and respiratory precautions from my perspe ctive 2. Encourage prone positioning, Acapella and incentive spirometer 3. Continue BiPAP with sleep. Wean nasal cannula as tolerated 4. Intermittent diuretics as necessary to maintain euvolemia. Challenge today 5. Continue empiric antibiotics pending cultures 6. Possible outpatient work-up for gout. Currently on steroids. IMPRESSIONS: 1. Acute hypoxic respiratory failure secondary to COVID-19 Patient is doing okay at this time. Patient with rapid readmission following discharge. Clinical suspicion for an element of cor pulmonale with progressive hypoxia. We will attempt to diurese. We will discontinue Decadron as patient has completed over 10 days. Patient can also be taken out of respiratory isolation per previous evaluation by ID. We will aggressively diurese. Empiric antibiotics pending cultures are reasonable. All cultures are no growth to date thus far. An element of leukocytosis may be secondary to De cadron 2. Obesity/nonvaccinated status/hypertension Complicates care, management, recovery and prognosis. Patient with very poor insight into his overall condition and potential prognosis. Patient is a full code at this time. Acceptable control with baseline antihypertensives at this time. 3. Possible gout Patient with increased tenderness of the PIP joint of the great toe. Erythema and pain are reportedly resolved. Clinical suspicion for gout with improvement following steroids. Uric acid level was within normal limits. Defe r to hospitalist on whether podiatry gets involved. Subjective Subjective Patient did well overnight. Patient subjectively feels improved compared to previous. Patient is no longer reporting any toe pain, but is asking if someone can cut my toenails. Patient is not reporting any significant cough. Patient was able to be moved to nasal cannula this morning and was saturating 97% on 13 L in my evaluation. Objective Data Objective Data Vital Signs: Vital Signs Temp Pulse Resp BP Pulse Ox 36.3 C L 82 18 128/86 H 90 04/27/21 08:23 04/27/21 08:23 04/27/21 08:23 04/27/21 08:23 04/27/21 08:33 Oxygen Flow Rate (L/min) 15 Oxygen Delivery Method High Flow Weight: 100.924 kg Body Mass Index (BMI) 37.0 Intake & Output: Intake and Output for Last 24 Hours 04/25/21 04/26/21 04/27/21 23:59 23:59 23:59 Intake Total 1925 / 1925 635 / 635 Output Total 1150 / 1150 Balance 775 / 775 635 / 635 Lab / Micro Data Result Diagrams: 04/27/21 06:44 04/27/21 06:44 Labs: Laboratory Results - last 24 hr 04/26/21 07:18: Uric Acid 6.7 04/27/21 06:44: WBC 15.1 H, RBC 4.15 L, Hgb 12.2 L, Hct 37.8 L, MCV 91.1, MCH 29.4, MCHC 32.3, RDW Std Deviation 45.5 H, RDW Coeff of [place] 13.7, Plt Count 191, MPV 9.3, Immature Gran % (Auto) 0.600, Neut % (Auto) 92.3 H, Lymph % (Auto) 2.5 L, [place] % (Auto) 4.5, Eos % (Auto) 0.0, Baso % (Auto) 0.1, Absolute Neuts (auto) 13.9 H, Absolute Lymphs (auto) 0.38 L, Nucleated RBC % 0, Differential Comment SCANNED 04/27/21 06:44: Sodium 131 L, Potassium 4.3, Chloride 105, Carbon Dioxide 19.0 L , Anion Gap 7, BUN 34 H, Creatinine 1.01, Estim Creat Clear Calc 67.66, Est GFR (MDRD) Af Amer 97, Est GFR (MDRD) Non-Af 80, BUN/Creatinine Ratio 33.7 H, Glucose 127 H, Calcium 8.7 Micro: Microbiology 04/25/21 14:25 Blood Culture (Wb) - Anticubital Left Blood Culture - Preliminary No growth in 48 hours. 04/25/21 14:30 Blood Culture (Wb) - Anticubital Right Blood Culture - Preliminary No growth in 48 hours. 04/25/21 23:19 Sputum, Expectorated/Coughed Gram Stain - Final 04/25/21 Unknown Urine, Clean Catch Legionella Antigen - Final 04/25/21 Unknown Urine, Clean Catch Streptococcus pneumoniae Antigen (M - Final Physical Exam Const alert, oriented x3 and no apparent distress Constitutional Narrative: On Airvo during my evaluation General Appearance: cooperative and well developed Nutritional Appearance: obese HEENT normocephalic and moist oral mucous membranes Eyes PERRL, EOMs intact bilaterally and conjunctivae normal Neck nuchal rigidity, supple, no JVD, thyroid normal and no carotid bruits General: trachea midline Chest inspection of chest normal Chest: symmetrical chest wall rise; Negative for crepitus Resp Effort and Inspection: actively coughing dry Auscultation: diminished lung sounds; Negative for rales, rhonchi or wheezes Cardio regular rate, regular rhythm, S1 normal heart sound, S2 normal heart sound, no murmurs, no rub and no gallops GI normal to inspection, nondistended, normoactive bowel sounds, soft to palpation, non-tender and non-distended Extremity Extremity Narrative: Resolution of erythema and tenderness noted at the PIP joint of great toe General Extremity: edema; Negative for clubbing or cyanosis Skin no rashes or lesions noted General Skin Exam: no breakdown Neuro oriented x3, CN's II-XII intact bilaterally, no focal motor deficits and no sensory deficits noted Sensorium / Orientation: awake and alert Speech: speech normal Psych thought process normal and affect normal Charges/Coding Visit Charges Inpatient E&M: 97007 Subs Hosp L2
[2021-04-27 13:04] LABS: Vancomycin, Trough Level 21.9 ug/mL (5.0-15.0)
--- NOTE | 2021-04-27 14:18 | PN.HOSP_ITS ---
Subjective Subjective Weaned down to high-flow oxygen at 15l/m. Would like a podiatry consult. Objective Data Objective Data Vital Signs: Vital Signs Temp Pulse Resp BP Pulse Ox 36.3 C L 82 18 128/86 H 90 04/27/21 08:23 04/27/21 08:23 04/27/21 08:23 04/27/21 08:23 04/27/21 08:33 Oxygen Flow Rate (L/min) 15 Oxygen Delivery Method High Flow Weight: 100.924 kg Body Mass Index (BMI) 37.0 Intake & Output: Intake and Output for Last 24 Hours 04/25/21 04/26/21 04/27/21 23:59 23:59 23:59 Intake Total 1925 / 1925 1115 / 1115 Output Total 1150 / 1150 925 / 925 Balance 775 / 775 190 / 190 Lab / Micro Data Result Diagrams: 04/27/21 06:44 04/27/21 06:44 Labs: Laboratory Results - last 24 hr 04/27/21 06:44: WBC 15.1 H, RBC 4.15 L, Hgb 12.2 L, Hct 37.8 L, MCV 91.1, MCH 29.4, MCHC 32.3, RDW Std Deviation 45.5 H, RDW Coeff of [place] 13.7, Plt Count 191, MPV 9.3, Immature Gran % (Auto) 0.600, Neut % (Auto) 92.3 H, Lymph % (Auto) 2.5 L, [place] % (Auto) 4.5, Eos % (Auto) 0.0, Baso % (Auto) 0.1, Absolute Neuts (auto) 13.9 H, Absolute Lymphs (auto) 0.38 L, Nucleated RBC % 0, Differential Comment SCANNED 04/27/21 06:44: Sodium 131 L, Potassium 4.3, Chloride 105, Carbon Dioxide 19.0 L , Anion Gap 7, BUN 34 H, Creatinine 1.01, Estim Creat Clear Calc 67.66, Est GFR (MDRD) Af Amer 97, Est GFR (MDRD) Non-Af 80, BUN/Creatinine Ratio 33.7 H, Glucose 127 H, Calcium 8.7 04/27/21 12:04: Vancomycin Trough 21.9 H Micro: Microbiology 04/25/21 23:19 Sputum, Expectorated/Coughed Gram Stain - Final 04/25/21 23:19 Sputum, Expectorated/Coughed Respiratory Culture - Pr eliminary 04/26/21 00:33 Urine, Clean Catch Urine Culture - Preliminary Culture exhibits no growth. 04/25/21 14:25 Blood Culture (Wb) - Anticubital Left Blood Culture - Preliminary No growth in 48 hours. 04/25/21 14:30 Blood Culture (Wb) - Anticubital Right Blood Culture - Preliminary No growth in 48 hours. 04/25/21 Unknown Urine, Clean Catch Legionella Antigen - Final 04/25/21 Unknown Urine, Clean Catch Streptococcus pneumoniae Antigen (M - Final Physical Exam Const alert Resp Resp Narrative: bibasilar crackles. Cardio regular rate, regular rhythm, S1 normal heart sound and S2 normal heart sound GI normal to inspection, nondistended, normoactive bowel sounds, soft to palpation and non-distended Assessment & Plan Assessment/Plan (1) Acute respiratory failure with hypoxia: (2) COVID-19: (3) Hypoxemia: PLAN: 1. Acute hypoxic respiratory failure Secondary to COVID-19 Additional work-up for bacterial pneumonia is currently pending Patient on empiric cefepime and vancomycin Furosemide challenge Wean oxygen as able 2. COVID-19 Onset was March 29 Discontinue isolation On short course of dexamethasone Unvaccinated 3. VTE prophylaxis with enoxaparin Charges/Coding Visit Charges Inpatient E&M: 27124 Subs Hosp L2
--- NOTE | 2021-04-27 15:53 | PCS.PANDOC ---
PANDEMIC DOCUMENTATION INITIATED: Date: 11/23/2020 Time: 190
--- NOTE | 2021-04-27 15:57 | PCM.RX.CS ---
Consult Pharmacy has been consulted to manage selected antiobiotic: Vancomycin Type of Consult: Follow-up Prior Doses of Antibiotics Received/Current Regimen: currently on vanc 1750mg IV q12h Labs: Sodium 131 mmol/L (136-145) L 04/27/21 06:44 Potassium 4.3 mmol/L (3.5-5.1) 04/27/21 06:44 Chloride 105 mmol/L (98-107) 04/27/21 06:44 Carbon Dioxide 19.0 mmol/L (21.0-32.0) L 04/27/21 06:44 Anion Gap 7 (5-15) 04/27/21 06:44 BUN 34 mg/dL (7-18) H 04/27/21 06:44 Creatinine 1.01 mg/dL (0.70-1.30) 04/27/21 06:44 Est GFR (MDRD) Af Amer 97 mL/min (>60) 04/27/21 06:44 Est GFR (MDRD) Non-Af 80 mL/min (>60) 04/27/21 06:44 BUN/Creatinine Ratio 33.7 RATIO (10-20) H 04/27/21 06:44 Glucose 127 mg/dL (74-106) H 04/27/21 06:44 Vancomycin Trough 21.9 ug/mL (5.0-15.0) H 04/27/21 12:04 Microbiology: Microbiology 04/25/21 23:19 Sputum, Expectorated/Coughed Gram Stain - Final 04/25/21 23:19 Sputum, Expectorated/Coughed Respiratory Culture - Preliminary 04/26/21 00:33 Urine, Clean Catch Urine Culture - Preliminary Culture exhibits no growth. 04/25/21 14:25 Blood Culture (Wb) - Anticubital Left Blood Culture - Preliminary No growth in 48 hours. 04/25/21 14:30 Blood Culture (Wb) - Anticubital Right Blood Culture - Preliminary No growth in 48 hours. 04/25/21 Unknown Urine, Clean Catch Legionella Antigen - Final 04/25/21 Unknown Urine, Clean Catch Streptococcus pneumoniae Antigen (M - Final Weight used for dosin.9 kg Estimated Creatinine Clearance: 85ml/min Goal Trough: 15-20 mcg/mL Pharmacy Plan for Drug Dosing: The vanc trough drawn at 12:04 today (approx 10.5 hours after the previous dose) was 21.9. This is above goal but it would have been a little closer to goal if drawn closer to 11.5 to 12 hours after the previous dose (that dose was given about an hour late). Nevertheless, the trough would've likely still been over 20 so will hold further dosing per protocol. This afternoon's dose was already infused after the trough was taken so will stop further dosing after that and order a random level to be drawn approximately 18 hours from the start of this afternoon's infusion. If that level tomorrow is <20, can restart dosing at a newly calculated dose. Pharmacy Service will continue to monitor and adjust dosing as required. Follow-Up Labs: Trough Vancomycin - random Labs to be done on [date and time ordered]: 04/28/21 07:00
[2021-04-28] VITALS (16 sets, daily range): BP systolic 101–138; BP diastolic 63–92; PULSE 89–118; RESP 12–28; TEMP 36.5–37.3; O2SAT 82–96
[2021-04-28] MEDS: guaiFENesin 10 ML UDC (200MG/10ML) 20 ML PO (01:45)
[2021-04-28] MEDS: Menthol/Lanolin/Calamine/Znox 113 GM Tube 1 APPLIC TOPICAL ×3 (05:28→19:57)
[2021-04-28] MEDS: Acetaminophen 325 MG Tablet 650 MG PO ×2 (05:32→20:00)
[2021-04-28] MEDS: 0.9% Saline Lock 10 ML Syringe IV ×2 (05:36→09:31)
[2021-04-28] MEDS: BENZOCAINE/MENTHOL 1 LOZENGE MUCOUS MEM (06:28)
[2021-04-28 07:18] LABS: Vancomycin, Random Level 15.3 ug/mL (0.0-15.0)
[2021-04-28 07:54] LABS: Anion Gap 9 (5-15); BUN 32 mg/dL (7-18); BUN/Creat Ratio 30.8 RATIO (10-20); Calcium,Total 8.4 mg/dL (8.5-10.1); Chloride 104 mmol/L (98-107); Creatinine, Serum 1.04 mg/dL (0.70-1.30); EST Glomerular Filtration Rate 77 mL/min (>60); Est Glom Filt Rate - Afr Amer 94 mL/min (>60); Estimated Creatinine Clearance 65.71 ml/min; Glucose 99 mg/dL (74-106); Potassium 3.9 mmol/L (3.5-5.1); Sodium Level 134 mmol/L (136-145)
[2021-04-28] MEDS: Lisinopril 10 MG Tablet PO (08:03)
[2021-04-28] MEDS: Enoxaparin 30 MG/0.3 ML Syringe SC ×2 (08:03→19:57)
--- NOTE | 2021-04-28 08:26 | PCM.PN.INT ---
Assessment & Plan Assessment/Plan (1) Acute respiratory failure with hypoxia: (2) COVID-19: PLAN: RECOMMENDATIONS: 1. Okay to discontinue antibiotics given negative cultures 2. Encourage prone positioning, Acapella and incentive spirometer 3. Continue BiPAP with sleep. Wean nasal cannula as tolerated 4. Intermittent diuretics as necessary to maintain euvolemia. Challenge today 5. Transition to scheduled mucolytic therapy 6. Possible outpatient work-up for gout. Tested while on steroids in the hospital IMPRESSIONS: 1. Acute hypoxic respiratory failure secondary to COVID-19 Patient is doing okay at this time. Patient with rapid readmission following discharge. Clinical suspicion for an element of cor pulmonale with progressive hypoxia. We will attempt to diurese. We will discontinue Decadron as patient has completed over 10 days previously. Patient can also be taken out of respiratory isolation per previous evaluation by ID. We will aggressively diurese. Cultures are negative, so antibiotics will be discontinued. Patient is achieving only 200 cc on incentive spirometer, so likely has a large element of atelectasis. Patient aware that BiPAP overnight will limit this occurring overnight. Also discussed biofeedback as a response to anxiety. 2. Obesity/nonvaccinated status/hypertension Complicates care, management, recovery and prognosis. Patient with very poor insight into his overall condition and potential prognosis. Patient is a full code at this time. Acceptable control with baseline antihypertensives at this time. 3. Possible gout Patient with increased tenderness of the PIP joint of the great toe. Erythema and pain are reportedly resolved. Clinical suspicion for gout with improvement following steroids. Uric acid level was within normal limits. Defer to hospitalist on whether podiatry gets involved. Subjective Subjective Patient reports significant difficulties overnight. Patient has had anxiety leading to increased respiratory distress. Patient is up to 90% FiO2 to maintain saturations this morning. No fever or chills have been reported. Patient reports a cough, but no production. Objective Data Objective Data Vital Signs: Vital Signs Temp Pulse Resp BP Pulse Ox 36.5 C L 113 H 22 H 128/92 H 91 04/28/21 08:04 04/28/21 08:04 04/28/21 08:04 04/28/21 08:04 04/28/21 08:04 Oxygen Flow Rate (L/min) 50 Oxygen Delivery Method Airvo Weight: 100.924 kg Body Mass Index (BMI) 37.0 Intake & Output: Intake and Output for Last 24 Hours 04/26/21 04/27/21 04/28/21 23:59 23:59 23:59 Intake Total 1925 / 1925 2630 / 2630 160 / 160 Output Total 1150 / 1150 2175 / 2175 Balance 775 / 775 455 / 455 160 / 160 Lab / Micro Data Result Diagrams: 04/27/21 06:44 04/28/21 06:45 Labs: Laboratory Results - last 24 hr 04/27/21 12:04: Vancomycin Trough 21.9 H 04/28/21 06:45: Random Vancomycin 15.3 H 04/28/21 06:45: Sodium 134 L, Potassium 3.9, Chloride 104, Carbon Dioxide 21.0, Anion Gap 9, BUN 32 H, Creatinine 1.04, Estim Creat Clear Calc 65.71, Est GFR (MDRD) Af Amer 94, Est GFR (MDRD) Non-Af 77, BUN/Creatinine Ratio 30.8 H, Glucose 99, Calcium 8.4 L Micro: Microbiology 04/25/21 23:19 Sputum, Expectorated/Coughed Gram Stain - Final 04/25/21 23:19 Sputum, Expectorated/Coughed Respiratory Culture - Final 04/26/21 00:33 Urine, Clean Catch Urine Culture - Final Culture exhibits no growth. 04/25/21 14:25 Blood Culture (Wb) - Anticubital Left Blood Culture - Preliminary No growth in 48 hours. 04/25/21 14:30 Blood Culture (Wb) - Anticubital Right Blood Culture - Preliminary No growth in 48 hours. 04/25/21 Unknown Urine, Clean Catch Legionella Antigen - Final 04/25/21 Unknown Urine, Clean Catch Streptococcus pneumoniae Antigen (M - Final Physical Exam Const alert, oriented x3 and no apparent distress Constitutional Narrative: On Airvo during my evaluation General Appearance: cooperative and well developed Nutritional Appearance: obese HEENT normocephalic and moist oral mucous membranes Eyes PERRL, EOMs intact bilaterally and conjunctivae normal Neck nuchal rigidity, supple, no JVD, thyroid normal and no carotid bruits General: trachea midline Chest inspection of chest normal Chest: symmetrical chest wall rise; Negative for crepitus Resp Effort and Inspection: actively coughing dry Auscultation: diminished lung sounds; Negative for rales, rhonchi or wheezes Cardio regular rate, regular rhythm, S1 normal heart sound, S2 normal heart sound, no murmurs, no rub and no gallops GI normal to inspection, nondistended, normoactive bowel sounds, soft to palpation, non-tender and non-distended Extremity Extremity Narrative: Resolution of erythema and tenderness noted at the PIP joint of great toe General Extremity: edema; Negative for clubbing or cyanosis Skin no rashes or lesions noted General Skin Exam: no breakdown Neuro oriented x3, CN's II-XII intact bilaterally, no focal motor deficits and no sensory deficits noted Sensorium / Orientation: awake and alert Speech: speech normal Psych thought process normal and affect normal Charges/Coding Visit Charges Inpatient E&M: 76576 Subs Hosp L3
[2021-04-28] MEDS: Furosemide 40 MG/4 ML Vial IV (09:31)
[2021-04-28] MEDS: guaiFENesin 1,200 MG Tablet 1200 MG PO ×2 (09:31→19:56)
--- NOTE | 2021-04-28 14:15 | PN.HOSP_ITS ---
Subjective Subjective Patient states he gets very anxious when he moves around. Gets anxious because he feels short of breath. Objective Data Objective Data Vital Signs: Vital Signs Temp Pulse Resp BP Pulse Ox 36.5 C L 89 24 H 128/92 H 94 04/28/21 08:04 04/28/21 09:30 04/28/21 09:30 04/28/21 08:04 04/28/21 09:30 Oxygen Flow Rate (L/min) 60 Oxygen Delivery Method Airvo Weight: 100.924 kg Body Mass Index (BMI) 37.0 Intake & Output: Intake and Output for Last 24 Hours 04/26/21 04/27/21 04/28/21 23:59 23:59 23:59 Intake Total 1925 / 1925 2630 / 2630 520 / 520 Output Total 1150 / 1150 2175 / 2175 1550 / 1550 Balance 775 / 775 455 / 455 -1030 / -1030 Lab / Micro Data Result Diagrams: 04/27/21 06:44 04/28/21 06:45 Labs: Laboratory Results - last 24 hr 04/28/21 06:45: Random Vancomycin 15.3 H 04/28/21 06:45: Sodium 134 L, Potassium 3.9, Chloride 104, Carbon Dioxide 21.0, Anion Gap 9, BUN 32 H, Creatinine 1.04, Estim Creat Clear Calc 65.71, Est GFR (MDRD) Af Amer 94, Est GFR (MDRD) Non-Af 77, BUN/Creatinine Ratio 30.8 H, Glucose 99, Calcium 8.4 L Micro: Microbiology 04/25/21 23:19 Sputum, Expectorated/Coughed Gram Stain - Final 04/25/21 23:19 Sputum, Expectorated/Coughed Respiratory Culture - Final 04/26/21 00:33 Urine, Clean Catch Urine Culture - Final Culture exhibits no growth. 04/25/21 14:25 Blood Culture (Wb) - Anticubital Left Blood Culture - P reliminary No growth in 48 hours. 04/25/21 14:30 Blood Culture (Wb) - Anticubital Right Blood Culture - Preliminary No growth in 48 hours. 04/25/21 Unknown Urine, Clean Catch Legionella Antigen - Final 04/25/21 Unknown Urine, Clean Catch Streptococcus pneumoniae Antigen (M - Final Physical Exam Const Constitutional Narrative: I was talking with the patient and he was breathing okay. I had to respond to rapid response team and in the interim patient had use the urinal while sitting in a chair. When I came back and saw him he was very tachypneic. He was not on a pulse oximeter at that time so I turned it on and he was reading 62%. Had the patient taken deep respirations and his pulse ox improved into the 80s that I then increased his oxygen requirements up to around 90% FiO2 on Airvo any improvement 94%. Patient was very anxious during that period. Resp normal respiratory effort, no retractions, no use of accessory muscles and clear to auscultation bilaterally Cardio regular rate, regular rhythm and S1 normal heart sound GI normal to inspection, nondistended, normoactive bowel sounds, soft to palpation, non-tender, non-distended and hepatosplenomegaly Extremity normal to inspection Assessment & Plan Assessment/Plan (1) Acute respiratory failure with hypoxia: (2) COVID-19: (3) Hypoxemia: PLAN: 1. Acute hypoxic respiratory failure Secondary to COVID-19 Additional work-up for bacterial pneumonia is currently pending Patient on empiric cefepime and vancomycin Furosemide challenge Wean oxygen as able 2. COVID-19 Onset was March 29 Discontinue isolation On short course of dexamethasone Unvaccinated 3. Anxiety Situational due to his hypoxia. Patient was observed profoundly hypoxic and feeling very anxious and his pulse ox was 62%. Still emphasized proper breathing techniques with him in his nose and out his mouth and he did seem to be performing rapid shallow breaths with this. He was able to improve his oxygenation somewhat but still was hypoxic and was having good waveforms throughout all this. 4.VTE prophylaxis with enoxaparin Charges/Coding Visit Charges Inpatient E&M: 38031 Subs Hosp L2
--- NOTE | 2021-04-28 17:49 | PCM.CONS.GEN ---
Assessment & Plan Assessment/Plan (1) Nail dystrophy: PLAN: Evaluation performed. Reviewed conditions and treatment options. Reviewed proper foot care. Debrided toenails 1-5 bilateral using a nail nipper, removing bulk. This was done without incident. Patient care follow up at [facility] as needed for further foot care. (2) Ingrowing nail: (3) Pain of toes of both feet: (4) Toe pain, left: HPI Consult Data Date of Consult: 04/28/21 HPI Narrative HPI Narrative: PAPITO MEDINA, is a 61 M who needs foot care. Podiatry was consulted by medicine team. He has long thickened painful toenails 1-5 bilateral and needs help reducing them. He has been in hospital for COVID, and associated complications. He has no other foot or ankle complaints. [facility] Medical History Carpal tunnel syndrome Empyema lung Hernia HTN (hypertension) Liver abscess due to bacteria Obesity Home Medications lisinopril 10 mg PO DAILY 04/09/21 [History Last Taken Unknown] Allergy/AdvReac Type Severity Reaction Status Date / Time No Known Allergies Allergy Verified 04/09/21 08:06 Surgical History History of cholecystectomy Social History Smoking Status: Never smoker Physical Exam Const alert, oriented x3 and no apparent distress Extremity Extremity Narrative: Toenails 1-5 bilateral are elongated, thickened, dystrophic, incurvated, painful, yellow with subungual debris. There are no open lesions, no ecchymosis, no drainage, no crepitus, no fluctuance bilateral foot or ankle. Sensation intact to light touch, motor function intact to foot and ankle bilateral. No calf pain bilateral. CFT < 2 seconds, pedal pulses intact, no evidence of ischemia to the foot or ankle bilateral. Lab / Micro Data Result Diagrams: 04/27/21 06:44 04/28/21 06:45 Labs: Laboratory Results - last 24 hr 04/28/21 06:45: Random Vancomycin 15.3 H 04/28/21 06:45: Sodium 134 L, Potassium 3.9, Chloride 104, Carbon Dioxide 21.0, Anion Gap 9, BUN 32 H, Creatinine 1.04, Estim Creat Clear Calc 65.71, Est GFR (MDRD) Af Amer 94, Est GFR (MDRD) Non-Af 77, BUN/Creatinine Ratio 30.8 H, Glucose 99, Calcium 8.4 L Micro: Microbiology 04/25/21 23:19 Sputum, Expectorated/Coughed Gram Stain - Final 04/25/21 23:19 Sputum, Expectorated/Coughed Respiratory Culture - Final 04/26/21 00:33 Urine, Clean Catch Urine Culture - Final Culture exhibits no growth.
--- NOTE | 2021-04-28 20:00 | NURSING ---
Pt requesting to have meds early, falling asleep in recliner.
[2021-04-29] VITALS (43 sets, daily range): BP systolic 49–145; BP diastolic 35–89; PULSE 55–121; RESP 0–72; TEMP 36.6–39.7; O2SAT 35–98
[2021-04-29] MEDS: BENZOCAINE/MENTHOL 1 LOZENGE MUCOUS MEM (01:21)
[2021-04-29] MEDS: 0.9% Saline Lock 10 ML Syringe IV ×3 (02:16→03:12)
[2021-04-29] MEDS: LORazepam 2 MG/ML Syringe IV (02:16)
[2021-04-29] MEDS: Haloperidol Lactate 5 MG/ML Vial 4 MG IV (03:04)
--- NOTE | 2021-04-29 03:10 | RAD_ITS ---
EXAM: XR CHEST, 1 VIEW CLINICAL INDICATION: HYPOXIA TECHNIQUE: Frontal view of the chest. This report was created using [employer] report generation technology. COMPARISON: 04/25/2021 FINDINGS: Worsening bilateral dense airspace disease. Increasing fullness of the hilar regions and mediastinum can be seen with worsening worsening adenopathy. No pleural effusion or pneumothorax Unchanged enlarged cardiac silhouette RAD/Chest 1 View (Portable) IMPRESSION: Worsening bilateral airspace disease and possibly worsening mediastinal/hilar adenopathy. Electronically Signed: Mark Mearz MD at 3:30 EST Tel , Service support ,
[2021-04-29] MEDS: Furosemide 40 MG/4 ML Vial IV (03:12)
--- NOTE | 2021-04-29 03:34 | PCM.PN.BLA ---
Progress Note Early on patient was given 2 mg of Ativan for anxiety while on BiPAP. Was later called to bedside to see patient. The patient was sitting in a chair and on Airvo and non rebreather mask secondary to patient coughing profusely and trying to remove BiPAP. Patient was transferred to bed and BiPAP placed. Haldol 4 mg IV push. Also Lasix 40 mg IV push was given. Stat chest x-ray was ordered. Chest x-ray per my interpretation showed bilateral pulmonary infiltrates. Patient continued to be agitated. Respiratory rates in the 40s and occasionally in the 50s. Patient using accessory muscles of respiration. Patient tried to pull BiPAP off. Patient has tachycardia. Patient appeared not responding to intervention so a plan was was made to transfer patient to the intensive care unit and to intubate patient. Patient is agreeable to intubation. Respiratory therapy and nurses reported that while patient was in route to the intensive care unit he became calm. His respiratory rate improved to high 20s. Patient appeared restful. Will order Precedex as needed to be given when patient becomes more agitated and titrate as necessary. We will avoid ABGs at this time as we will attempt not to arouse patient. If patient becomes agitated; and tachypneic and with hypoxia will reconsider intubation.
--- NOTE | 2021-04-29 03:35 | NURSING ---
Pt transferred to ICU bed 3 at this time.
--- NOTE | 2021-04-29 03:50 | NURSING ---
Lorri called with update on patient condition changes. Aware of room transfer to ICU.
[2021-04-29 03:57] LABS: Base Excess -2 mmol/L (-2 to +2); Bicarbonate 22.9 mmol/L (22-26); Blood Gas Specimen Type ART; FI02 100; O2 Delivery Device BiPAP; PEEP 10; PO2 93 mmHG (75-100); PS 4; RR 12; SITE L Radial; SO2 97 % (95-99); Total Carbon Dioxide 24 mmol/L; pCO2 35.4 mmHg (35-45); pH 7.42 (7.35-7.45)
[2021-04-29] MEDS: Dexmedetomidine 1,000 mcg in 0.9% NS 240 mL 12.6 MCG CONT INF (04:00)
--- NOTE | 2021-04-29 04:00 | NURSING ---
Pt was satting low on Airvo, so agreeable to try bipap again. While on bipap 2mg x1 Ativan given to help calm him, and to lower respiratory rate. Pt began profusely coughing and satting low once more, so switched to airvo with nonrebreather mask. Respiratory rate increased to 40-50s so Respiratory Therapy and MD called to bedside. Bipap placed back on patient and transferred from recliner to bed. 40mg IV Lasix and 4mg Haldol IV given. Pt continued being tachyneic, tachycardic, and confused. Attempting to take mask off, and appearing agitated. CXR taken and sent to the ICU bed 3 for possible intubation, which patient was agreeable to. While on elevator patient respiratory rate decreased, he became calm, and he fell asleep upon arriving in ICU.
[2021-04-29 04:12] LABS: Absolute Lymphocyte Count 0.47 X10^3/uL (0.83-4.51); Absolute Neutrophil Count 11.8 X10^3/uL (2.0-7.7); Basophil# 0.02 X10^3/uL; Basophil% 0.2 % (0-1); Eosinophil# 0.07 X10^3/uL; Eosinophils% 0.5 % (0-5); Hematocrit 35.1 % (40-54); Lymphocyte # 0.47 X10^3/ul (0.83-4.51); Lymphocyte % 3.7 % (19-41); Mean Corp Hgb Conc 34.2 g/dL (32-36); Mean Corpuscular Hgb 28.6 pg (27.0-32.0); Mean Corpuscular Volume 83.6 fL (80-94); Mean Platelet Vol. 9.6 fl (6.2-12.0); Monocyte# 0.39 X10^3/uL; NRBC Flagged by Analyzer 0 % (0-5); Neutrophil # 11.75 X10^3/uL (2.7-7.7); Neutrophil % 91.9 % (47-70); POSITIVE DIFFERENTIAL YES; Platelet Count 199 K/mm3 (150-450); RBC Distribution Width SD 42.4 fl (35.1-43.9); White Blood Count 12.8 K/mm3 (4.4-11.0)
[2021-04-29 04:21] LABS: Differential Indicated SCAN CRITERIA MET
--- NOTE | 2021-04-29 04:44 | PN_ITS ---
Progress Note Patient is spiking a fever of 101.5. Noted that patient was on vancomycin and cefepime; with low procalcitonin ; and negative cultures. Unfortunately will re- initiate antibiotics; and re-check procalcitonin. Vanco and Cefepime re-started. Rectal tylenol ordered.
[2021-04-29 04:51] LABS: ALB/GLOB Ratio 0.4 RATIO (0.9-2.4); AST(SGOT) 57 U/L (15-37); Alanine Aminotransfer ALT/SGPT 79 U/L (16-61); Albumin, Serum 2.1 g/dL (3.2-5.0); Alkaline Phosphatase 167 U/L (45-117); Anion Gap 8 (5-15); BUN 31 mg/dL (7-18); BUN/Creat Ratio 30.1 RATIO (10-20); Calcium,Total 8.7 mg/dL (8.5-10.1); Chloride 99 mmol/L (98-107); Creatinine, Serum 1.03 mg/dL (0.70-1.30); EST Glomerular Filtration Rate 78 mL/min (>60); Est Glom Filt Rate - Afr Amer 95 mL/min (>60); Estimated Creatinine Clearance 66.34 ml/min; Globulin 5.9 g/dL (2.2-4.2); Glucose 116 mg/dL (74-106); Potassium 4.9 mmol/L (3.5-5.1); Sodium Level 131 mmol/L (136-145)
[2021-04-29 05:26] LABS: Differential Comment SCANNED
[2021-04-29 05:28] LABS: Procalcitonin 1.84 ng/mL (0.00-0.09)
[2021-04-29] MEDS: Succinylcholine Chloride 200 MG/10 ML Vial 100 MG IV (06:33)
--- NOTE | 2021-04-29 06:39 | RAD_ITS ---
STUDY: X-RAY CHEST REASON FOR EXAM: Male, 61 years old. ett and og placement TECHNIQUE: Single AP portable view of the chest. COMPARISON: Comparison is made with prior study dated April 29 3:08 AM. FINDINGS: An endotracheal tube has been placed. The tip is at 4.5 cm proximal to the petra. An orogastric tube is seen with the tip in the distal portion of the stomach. EKG electrodes are seen. Stable bilateral diffuse pulmonary infiltrates. There is no demonstrated pleural abnormality. There is mild cardiac enlargement. Normal mediastinum and fantasma. Normal visualized pulmonary arteries. Normal visualized aortic arch and descending thoracic aorta. There are diffuse degenerative changes of the visualized thoracic spine. Normal visualized ribs, clavicles, and shoulders. There is no demonstrated abnormality of the visualized soft tissue structures of the upper abdomen. RAD/Chest 1 View IMPRESSION: The tip of the endotracheal tube is at 4.5 cm proximal to the petra. The tip of the orogastric tube is in the distal portion of the stomach. Stable bilateral pulmonary infiltrates. Electronically Signed: Ovi Ghosh MD at 8:19 EST , Service support ,
[2021-04-29] MEDS: Propofol 10MG/Ml 1,000 MG/100 ML Bottle 30.3 MG CONT INF (06:45)
--- NOTE | 2021-04-29 07:51 | PN.CC_ITS ---
Assessment & Plan Assessment/Plan (1) Acute respiratory failure with hypoxia: (2) COVID-19: PLAN: RECOMMENDATIONS: 1. Continue empiric antibiotics 2. Possible prone positioning. Add paralytic. 3. Pressors/stress dose steroids to be initiated to support blood pressure for needed sedation for paralytics 4. Hold on further diuresis given hypotension 5. Await repeat cultures 6. Discontinue home lisinopril IMPRESSIONS: 1. Acute hypoxic respiratory failure secondary to COVID-19/probable septic shock Patient is doing okay at this time. Patient with rapid readmission following discharge. Procalcitonin has increased significantly over the course of the hospitalization along with fever and delirium. Patient has been on broad- spectrum antibiotics for much of his hospitalization. These will be continued. Pressors will be added. Hypoxia is a function of previous COVID-19 and possible concomitant septic shock/pneumonia. PEEP has been increased. Potential proning later today once more hemodynamically stable. 2. Obesity/nonvaccinated status/hypertension Complicates care, management, recovery and prognosis. Patient with very poor insight into his overall condition and potential prognosis. Patient is a full code at this time. Patient's has been updated on his current situation 3. Septic shock Patient was significant increase in procalcitonin over the course of the hospitalization, now with fever and altered sensorium. Patient has been on Vanco and cefepime. Could consider infectious disease consultation, but cultures are currently pending. Addendum 12:35 PM: Multiple visits to the room secondary to persistent hypoxia. Have attempted sedation with paralytics and prone positioning. Patient continues to have saturations in the 80s. Peak pressures have improved, also tidal volumes were able to be increased along with the respiratory rate. Patient does not appear to have significant resistance with the air trapping. Pressors have been relatively consistent despite hypoxia. Patient's has been called and notified of the changes. Attempts at increasing PEEP have been unsuccessful. Addendum 2:14 PM: Patient persisted in hypoxia despite prone positioning. ABG was obtained to ensure validity of pulse oximetry. Findings correlated. Discussed with the family that prone positioning does not appear to be working, but patient would have a high risk of cardiac arrest with repositioning. They did state that he would be a full code, but agreed to transition to the supine position. Patient was transitioned to the supine position and PEEP was increased to 16. Satura tions did improve transiently. Peak airway pressures were also improved. Addendum 4 PM: Patient's hemodynamics appear to be stable at this time. Patient appears to be tolerating supine position better than prone. Patient continues to have saturations in the 60s and 70s despite increasing PEEP to 18. Chest x-rays previously did not show any pneumothorax. Patient does not have any crepitus on exam. We will repeat chest x-ray for evaluation. Patient will be placed on therapeutic Lovenox as transport for a CTA of the chest will not be safe given patient's oxygenation status, need for pressors and other complications. Discussed with hospitalist. I will continue to try to optimize patient. We will attempt to contact ECMO centers to see if this would be an option. Patient currently has shunt physiology. We will attempt an echocardiogram to evaluate for intracardiac shunt. TIME: 170 minutes of critical care time spent addressing patient's acute hypoxic respiratory failure, septic shock, confirmation of CODE STATUS, review of all data and collaboration with care team Subjective Subjective Patient with increased agitation overnight given Haldol, Ativan and ultimately transferred to the intensive care unit. Patient was requiring BiPAP 100% to maintain saturations. Patient was placed on a Precedex drip to help with yongi arianna, but ultimately broke one of the masks. Decision was made to intubate the patient. See note below. Since intubation, patient has remained hypoxic despite 14 of PEEP and 100% FiO2. Patient has also become hypotensive and febrile over 102 ?F. Patient's made aware of the situation and came in. Patient personally updated. Objective Data Objective Data Intubation Indication: Hypoxic respiratory failure Consent was obtained from: Emergent The patient was placed in the appropriate sniffing position. Preoxygenated sedation via BiPAP was provided for a minimum of 3 minutes. The patient had c ontinuous cardiac as well as pulse oximetry monitoring during the procedure. Procedure sedation was provided by the administration of 100 mg of succinylcholine and 20 mg of etomidate. Video laryngoscopy was then performed using a number four blade, which revealed a grade 2 view. Attempts to pass an 8 mm endotracheal tube were unsuccessful. Transition to a 7.5 endotracheal tube and able to intubate. Patient was hypoxic during intubation, but did not become bradycardic. A 7.5 mm endotracheal tube was visualized advancing between the cords to the level of 24 cm at the lip. The stylette was then removed and discarded. Tube placement was confirmed by fogging in the tube along with equal and bilateral breath sounds. Colorimetric change was visualized on the CO2 meter. The cuff was then inflated and the tube secured using a commercially available device. A good pulse oximetry waveform was seen on the monitor throughout the procedure. A portable chest x-ray has been ordered to confirm appropriate placement. The patient tolerated the procedure well. Vital Signs: Vital Signs Temp Pulse Resp BP Pulse Ox 38.6 C H 112 H 46 H 119/62 95 04/29/21 05:00 04/29/21 05:30 04/29/21 05:30 04/29/21 05:30 04/29/21 05:33 Oxygen Flow Rate (L/min) 60 Oxygen Delivery Method Bi-pap Weight: 99.6 kg Body Mass Index (BMI) 37.0 Intake & Output: Intake and Output for Last 24 Hours 04/27/21 04/28/21 04/29/21 23:59 23:59 23:59 Intake Total 2630 / 2630 880 / 880 35.34 / 35.34 Output Total 2175 / 2175 2100 / 2100 260 / 260 Balance 455 / 455 -1220 / -1220 -224.66 / -224.66 Lab / Micro Data Result Diagrams: 04/29/21 03:35 04/29/21 03:35 Labs: Laboratory Results - last 24 hr 04/28/21 06:45: Sodium 134 L, Potassium 3.9, Chloride 104, Carbon Dioxide 21.0, Anion Gap 9, BUN 32 H, Creatinine 1.04, Estim Creat Clear Calc 65.71, Est GFR (MDRD) Af Amer 94, Est GFR (MDRD) Non-Af 77, BUN/Creatinine Ratio 30.8 H, Glucose 99, Calcium 8.4 L 04/29/21 03:35: WBC 12.8 H, RBC 4.20 L, Hgb 12.0 L, Hct 35.1 L, MCV 83.6 D, MCH 28.6, MCHC 34.2 D, RDW Std Deviation 42.4, RDW Coeff of [place]co 14.0, Plt Count 199, MPV 9.6, Immature Gran % (Auto) 0.700, Neut % (Auto) 91.9 H, Lymph % (Auto) 3.7 L, [place] % (Auto) 3.0, Eos % (Auto) 0.5, Baso % (Auto) 0.2, Absolute Neuts (auto) 11.8 H, Absolute Lymphs (auto) 0.47 L, Nucleated RBC % 0, Differential Comment SCANNED 04/29/21 03:35: Sodium 131 L, Potassium 4.9, Chloride 99, Carbon Dioxide 24.0, Anion Gap 8, BUN 31 H, Creatinine 1.03, Estim Creat Clear Calc 66.34, Est GFR (MDRD) Af Amer 95, Est GFR (MDRD) Non-Af 78, BUN/Creatinine Ratio 30.1 H, Glucose 116 H, Calcium 8.7, Total Bilirubin 0.90, AST 57 H, ALT 79 H, Alkaline Phosphatase 167 H, Total Protein 8.0, Albumin 2.1 L, Globulin 5.9 H, Albumin/Globulin Ratio 0.4 L 04/29/21 04:45: Procalcitonin 1.84 H Micro: Microbiology 04/25/21 23:19 Sputum, Expectorated/Coughed Gram Stain - Final 04/25/21 23:19 Sputum, Expectorated/Coughed Respiratory Culture - Final 04/26/21 00:33 Urine, Clean Catch Urine Culture - Final Culture exhibits no growth. 04/25/21 14:25 Blood Culture (Wb) - Anticubital Left Blood Culture - Preliminary No growth in 48 hours. 04/25/21 14:30 Blood Culture (Wb) - Anticubital Right Blood Culture - Preliminary No growth in 48 hours. 04/25/21 Unknown Urine, Clean Catch Legionella Antigen - Final 04/25/21 Unknown Urine, Clean Catch Streptococcus pneumoniae Antigen (M - Final ABG Data ABG results: ABG 04/29/21 03:49 Specimen Type ART Sample Site L Radial pH 7.42 Bicarbonate Actual 22.9 Total CO2 24 Base Excess -2 O2 Saturation 97 O2 % 100 ABG pCO2 35.4 ABG pO2 93 Cesar Test N/A Respiration Rate 12 O2 Delivery Device BiPAP POC PEEP 10 POC Pressure Suppt 4 Radiography Diagnostic Testing: Radiology Impression Chest X-Ray 04/29/21 03:10 IMPRESSION: Worsening bilateral airspace disease and possibly worsening mediastinal/hilar adenopathy. Electronically Signed: Mark Meraz MD at 3:30 EST Tel , Service support , Physical Exam Const Constitutional Narrative: Seen on BiPAP therapy, but ultimately intubated General Appearance: well developed, in distress Positive for respiratory (Severe), diaphoretic, grossly edematous and on BiPAP; Negative for cooperative Nutritional Appearance: obese HEENT normocephalic and moist oral mucous membranes Eyes PERRL, EOMs intact bilaterally and conjunctivae normal Neck No nuchal rigidity, supple, no JVD, thyroid normal and no carotid bruits General: trachea midline Chest inspection of chest normal Chest: symmetrical chest wall rise; Negative for crepitus Resp Resp Narrative: Poor vent synchrony following intubation. Chest x-ray shows extensive bilateral infiltrates Auscultation: rhonchi throughout and diminished lung sounds; Negative for rales or wheezes Cardio regular rhythm, S1 normal heart sound, S2 normal heart sound, no murmurs, no rub and no gallops Rate: tachycardic GI normal to inspection, nondistended, normoactive bowel sounds, soft to palpation, non-tender and non-distended Extremity Extremity Narrative: Resolution of erythema and tenderness noted at the PIP joint of great toe General Extremity: edema; Negative for clubbing or cyanosis Skin no rashes or lesions noted General Skin Exam: no breakdown Neuro Sensorium / Orientation: confused and fluctuating sensorium Speech: speech normal Psych thought process normal and affect normal Charges/Coding Procedures Hospitalists Procedures: 85155 Critial Care 1st Hr Multi Select Codes Hospitalists' Procedures Procedures: 18676 Critial Care Addl 30 Min (X4, 170 minutes of total critical care time)
[2021-04-29 08:05] LABS: Blood Gas Specimen Type VEN; O2 Delivery Device Adult Vent; PEEP 14; RR 14; SITE R Radial; VBG BASE EXCESS 0 mmol/L (-1.0-3.5); VBG Bicarbonate 27 mmol/L (22-26); VBG PO2 50 mmHg (25-40); VBG SO2 80 % (50-70); VBG TCO2 28 mmol/L (23-33); VBG pCO2 53.7 mmHg (41-51)
--- NOTE | 2021-04-29 08:10 | NURSING ---
0630- Dr. Christianson, RT and 3 RNs at bedside preparing to intubate patient. 0631- Etomidate 20mg IVP given 0633- Succ 100mg IVP given 0635- Patient intubated. ETT 7.5mm 24cm @ the lip. Positive color change and bilateral breath sounds heard. OG placed. Chest x-ray ordered. 0645- Patient is dyssynchronous with the ventilator. Dr. Christianson ordered another Succ 100mg IVP to be given. 0655-Patient still isn't sedated properly at this time. Dr. Christianson ordered Propofol 40mcg IVP to be given. 0700- Levophed started due to patient being hypotensive. 0750- Patient is still hypotensive at this time. Levophed is at 15mcg. Dr. Christianson is aware that gtt is going through a peripheral IV. Preparing supplies to place central line. Consent is received from patient's via phone and 2 RNs witness.
--- NOTE | 2021-04-29 08:45 | RAD_ITS ---
STUDY: X-RAY CHEST REASON FOR EXAM: Male, 61 years old. Central line placement TECHNIQUE: Single AP portable view of the chest. COMPARISON: Comparison is made with prior examination. FINDINGS: A left-sided internal jugular venous catheter has been placed. The catheter is in the right atrium. The remainder of the examination is unchanged. RAD/Chest 1 View (Portable) IMPRESSION: The tip of the left internal jugular venous catheter is within the right atrium. The remainder of the examination is unchanged. Electronically Signed: Ovi Ghosh MD at 9:10 EST , Service support ,
--- NOTE | 2021-04-29 09:12 | PCM.OP.BLANK ---
Operative Report Date of Procedure: 04/29/21 Central line placement procedure note Indication: IV access/hemodynamic instability/vasoactive medications Procedure: A time-out was completed to verify correct patient, indication, medication allergies, procedure, coagulation studies, informed consent signed, and equipment needed. The patient was placed in the supine position for a central line placement to the left IJ vein. The patients left neck was prepped using chlorhexidine and a full body sterile drape was applied. 1% lidocaine was used to anesthetize the surrounding skin. A 7fr 20 cm blue guard triple lumen catheter introduced into the internal jugular vein using the modified Seldinger technique with the assistance of ultrasound. The catheter was threaded smoothly over the guidewire, the guidewire was removed easily, nonpulsatile blood returned. All ports were aspirated of air and flushed with sterile saline. The catheter was sutured in place and covered with an occlusive dressing impregnated with chlorhexidine. Post-procedure: The patient tolerated the procedure well. Vital signs remained stable. EBL 3cc. No complications. Chest X Ray ordered to confirm tip placement and the absence of pneumothorax. Procedures Hospitalists Procedures: 45709 Insert Non-tunnel CV Cath
[2021-04-29] MEDS: Hydrocortisone Sod Succinate 100 MG/2 ML Vial IV ×3 (10:34→21:42)
[2021-04-29] MEDS: Enoxaparin 30 MG/0.3 ML Syringe SC (10:38)
[2021-04-29 11:26] LABS: Blood Gas Specimen Type VEN; O2 Delivery Device Adult Vent; PEEP 14; RR 18; SITE L Radial; VBG BASE EXCESS -4 mmol/L (-1.0-3.5); VBG Bicarbonate 26 mmol/L (22-26); VBG PO2 34 mmHg (25-40); VBG SO2 42 % (50-70); VBG TCO2 29 mmol/L (23-33); VBG pCO2 89.6 mmHg (41-51); VBG pH 7.07 (7.32-7.42)
[2021-04-29] MEDS: Dexmedetomidine 1,000 mcg in 0.9% NS 240 mL 37.8 MCG CONT INF ×2 (11:32→17:37)
--- NOTE | 2021-04-29 11:32 | PCM.PN.HOSP ---
Subjective Subjective Fever overnight. Worsening respiratory status. Intubated this AM. Prone positioning this AM. Objective Data Objective Data Vital Signs: Vital Signs Temp Pulse Resp BP Pulse Ox 38.3 C H 113 H 9 L 96/65 87 04/29/21 11:00 04/29/21 11:00 04/29/21 10:00 04/29/21 11:00 04/29/21 10:00 Oxygen Flow Rate (L/min) 60 Oxygen Delivery Method Mechanical Ventilator Weight: 99.6 kg Body Mass Index (BMI) 37.0 Intake & Output: Intake and Output for Last 24 Hours 04/27/21 04/28/21 04/29/21 23:59 23:59 23:59 Intake Total 2630 / 2630 880 / 880 952.10 / 952.10 Output Total 2175 / 2175 2100 / 2100 1010 / 1010 Balance 455 / 455 -1220 / -1220 -57.90 / -57.90 Lab / Micro Data Result Diagrams: 04/29/21 03:35 04/29/21 03:35 Labs: Laboratory Results - last 24 hr 04/29/21 03:35: WBC 12.8 H, RBC 4.20 L, Hgb 12.0 L, Hct 35.1 L, MCV 83.6 D, MCH 28.6, MCHC 34.2 D, RDW Std Deviation 42.4, RDW Coeff of [place] 14.0, Plt Count 199, MPV 9.6, Immature Gran % (Auto) 0.700, Neut % (Auto) 91.9 H, Lymph % (Auto) 3.7 L, [place] % (Auto) 3.0, Eos % (Auto) 0.5, Baso % (Auto) 0.2, Absolute Neuts (auto) 11.8 H, Absolute Lymphs (auto) 0.47 L, Nucleated RBC % 0, Differential Comment SCANNED 04/29/21 03:35: Sodium 131 L, Potassium 4.9, Chloride 99, Carbon Dioxide 24.0, Anion Gap 8, BUN 31 H, Creatinine 1.03, Estim Creat Clear Calc 66.34, Est GFR (MDRD) Af Amer 95, Est GFR (MDRD) Non-Af 78, BUN/Creatinine Ratio 30.1 H, Glucose 116 H, Calcium 8.7, Total Bilirubin 0.90, AST 57 H, ALT 79 H, Alkaline Phosphatase 167 H, Total Protein 8.0, Albumin 2.1 L, Globulin 5.9 H, Albumin/Globulin Ratio 0.4 L 04/29/21 04:45: Procalcitonin 1.84 H Micro: Microbiology 04/25/21 23:19 Sputum, Expectorated/Coughed Gram Stain - Final 04/25/21 23:19 Sputum, Expectorated/Coughed Respiratory Culture - Final 04/26/21 00:33 Urine, Clean Catch Urine Culture - Final Culture exhibits no growth. 04/25/21 14:25 Blood Culture (Wb) - Anticubital Left Blood Culture - Preliminary No growth in 48 hours. 04/25/21 14:30 Blood Culture (Wb) - Anticubital Right Blood Culture - Preliminary No growth in 48 hours. 04/25/21 Unknown Urine, Clean Catch Legionella Antigen - Final 04/25/21 Unknown Urine, Clean Catch Streptococcus pneumoniae Antigen (M - Final ABG Data ABG results: ABG 04/29/21 04/29/21 04/29/21 03:49 08:00 11:18 Specimen Type ART JOSH JOSH Sample Site L Radial R Radial L Radial pH 7.42 Bicarbonate Actual 22.9 Total CO2 24 Base Excess -2 O2 Saturation 97 O2 % 100 ABG pCO2 35.4 ABG pO2 93 Cesar Test N/A VBG pH 7.30 L 7.07 L* VBG pO2 50 H 34 VBG HCO3 27 H 26 VBG Total CO2 28 29 VBG O2 Sat (Calc) 80 H 42 L VBG Base Excess 0 -4 L POC Mix VBG pCO2 Pt Tmp 53.7 H 89.6 H* Respiration Rate 12 14 18 O2 Delivery Device BiPAP Adult Vent Adult Vent POC PEEP 10 14 14 POC Pressure Suppt 4 Crit Call To/Read Back Yes Blood Gas Notified Whom jeff Blood Gas Notified Time 11:20:36 Radiography Diagnostic Testing: Radiology Impression Chest X-Ray 04/29/21 03:10 IMPRESSION: Worsening bilateral airspace disease and possibly worsening mediastinal/hilar adenopathy. Electronically Signed: Mark Meraz MD at 3:30 EST Tel , Service support , Chest X-Ray 04/29/21 06:39 IMPRESSION: The tip of the endotracheal tube is at 4.5 cm proximal to the petra. The tip of the orogastric tube is in the distal portion of the stomach. Stable bilateral pulmonary infiltrates. Electronically Signed: Ovi Ghosh MD at 8:19 EST , Service support , Chest X-Ray 04/29/21 08:45 IMPRESSION: The tip of the left internal jugular venous catheter is within the right atrium. The remainder of the examination is unchanged. Electronically Signed: Ovi Ghosh MD at 9:10 EST , Service support , Physical Exam Const Constitutional Narrative: intubated. sedated. prone. Resp Resp Narrative: coarse breath sounds Cardio regular rate, regular rhythm, S1 normal heart sound and S2 normal heart sound GI normal to inspection, nondistended, normoactive bowel sounds, soft to palpation, non-tender and non-distended Assessment & Plan Assessment/Plan (1) Acute respiratory failure with hypoxia: (2) COVID-19: (3) Hypoxemia: PLAN: 1. Acute hypoxic respiratory failure Worse. Intubated 04/29 Secondary to COVID-19 Additional work-up for bacterial pneumonia so far negative Patient on empiric cefepime and vancomycin 2. COVID-19 Onset was March 29 Discontinue isolation On short course of dexamethasone Unvaccinated 3. Anxiety Situational due to his hypoxia. Patient was observed profoundly hypoxic and feeling very anxious and his pulse ox was 62%. Still emphasized proper breathing techniques with him in his nose and out his mouth and he did seem to be performing rapid shallow breaths with this. He was able to improve his oxygenation somewhat but still was hypoxic and was having good waveforms throughout all this. 4.VTE prophylaxis with enoxaparin Guarded prognosis. Charges/Coding Visit Charges Inpatient E&M: 14081 Subs Hosp L2
--- NOTE | 2021-04-29 11:44 | CON.PCM_ITS ---
HPI Consult Data Date of Consult: 04/29/21 HPI Narrative HPI Narrative: PAPITO MEDINA, is a 61 M who presents [facility] Medical History Carpal tunnel syndrome Empyema lung Hernia HTN (hypertension) Liver abscess due to bacteria Obesity Home Medications lisinopril 10 mg PO DAILY 04/09/21 [History Last Taken Unknown] Allergy/AdvReac Type Severity Reaction Status Date / Time No Known Allergies Allergy Verified 04/09/21 08:06 Surgical History History of cholecystectomy Social History Smoking Status: Never smoker ROS Constitutional Constitutional: Denies change in weight, chills, daytime sleepiness or headache(s) Eyes Eyes: Denies acute decrease in peripheral vision, blindness or blind spots ENT HEENT: Denies nasal obstruction, rhinorrhea or sinus pain Cardiovascular Cardiovascular: Denies abdominal edema, abdominal pain, chest pain at rest or chest pain with activity Lab / Micro Data Result Diagrams: 04/29/21 03:35 04/29/21 03:35 Labs: Laboratory Results - last 24 hr 04/29/21 03:35: WBC 12.8 H, RBC 4.20 L, Hgb 12.0 L, Hct 35.1 L, MCV 83.6 D, MCH 28.6, MCHC 34.2 D, RDW Std Deviation 42.4, RDW Coeff of Mayco 14.0, Plt Count 199, MPV 9.6, Immature Gran % (Auto) 0.700, Neut % (Auto) 91.9 H, Lymph % (Auto) 3.7 L, [place] % (Auto) 3.0, Eos % (Auto) 0.5, Baso % (Auto) 0.2, Absolute Neuts (auto) 11.8 H, Absolute Lymphs (auto) 0.47 L, Nucleated RBC % 0, Differential Comment SCANNED 04/29/21 03:35: Sodium 131 L, Potassium 4.9, Chloride 99, Carbon Dioxide 24.0, Anion Gap 8, BUN 31 H, Creatinine 1.03, Estim Creat Clear Calc 66.34, Est GFR (MDRD) Af Amer 95, Est GFR (MDRD) Non-Af 78, BUN/Creatinine Ratio 30.1 H, Glucose 116 H, Calcium 8.7, Total Bilirubin 0.90, AST 57 H, ALT 79 H, Alkaline Phosphatase 167 H, Total Protein 8.0, Albumin 2.1 L, Globulin 5.9 H, Albumin/Globulin Ratio 0.4 L 04/29/21 04:45: Procalcitonin 1.84 H Micro: Microbiology 04/25/21 23:19 Sputum, Expectorated/Coughed Gram Stain - Final 04/25/21 23:19 Sputum, Expectorated/Coughed Respiratory Culture - Final 04/26/21 00:33 Urine, Clean Catch Urine Culture - Final Culture exhibits no growth. ABG Data ABG results: ABG 04/29/21 04/29/21 04/29/21 03:49 08:00 11:18 Specimen Type ART JOSH JOSH Sample Site L Radial R Radial L Radial pH 7.42 Bicarbonate Actual 22.9 Total CO2 24 Base Excess -2 O2 Saturation 97 O2 % 100 ABG pCO2 35.4 ABG pO2 93 Cesar Test N/A VBG pH 7.30 L 7.07 L* VBG pO2 50 H 34 VBG HCO3 27 H 26 VBG Total CO2 28 29 VBG O2 Sat (Calc) 80 H 42 L VBG Base Excess 0 -4 L POC Mix VBG pCO2 Pt Tmp 53.7 H 89.6 H* Respiration Rate 12 14 18 O2 Delivery Device BiPAP Adult Vent Adult Vent POC PEEP 10 14 14 POC Pressure Suppt 4 Crit Call To/Read Back Yes Blood Gas Notified Whom jeff Blood Gas Notified Time 11:20:36 Radiology Impression Chest X-Ray 04/29/21 03:10 IMPRESSION: Worsening bilateral airspace disease and possibly worsening mediastinal/hilar adenopathy. Electronically Signed: Mark Meraz MD at 3:30 EST Tel , Service support , Chest X-Ray 04/29/21 06:39 IMPRESSION: The tip of the endotracheal tube is at 4.5 cm proximal to the petra. The tip of the orogastric tube is in the distal portion of the stomach. Stable bilateral pulmonary infiltrates. Electronically Signed: Ovi Ghosh MD at 8:19 EST , Service support , Chest X-Ray 04/29/21 08:45 IMPRESSION: The tip of the left internal jugular venous catheter is within the right atrium. The remainder of the examination is unchanged. Electronically Signed: Ovi Ghosh MD at 9:10 EST , Service support ,
[2021-04-29] MEDS: Propofol 10MG/Ml 1,000 MG/100 ML Bottle 24.2 MG CONT INF ×3 (12:22→20:23)
--- NOTE | 2021-04-29 12:45 | PCM.RX.CS ---
Consult Type of Consult: New start Suspected Infection: Pneumonia Labs: Sodium 131 mmol/L (136-145) L 04/29/21 03:35 Potassium 4.9 mmol/L (3.5-5.1) 04/29/21 03:35 Chloride 99 mmol/L (98-107) 04/29/21 03:35 Carbon Dioxide 24.0 mmol/L (21.0-32.0) 04/29/21 03:35 Anion Gap 8 (5-15) 04/29/21 03:35 BUN 31 mg/dL (7-18) H 04/29/21 03:35 Creatinine 1.03 mg/dL (0.70-1.30) 04/29/21 03:35 Est GFR (MDRD) Af Amer 95 mL/min (>60) 04/29/21 03:35 Est GFR (MDRD) Non-Af 78 mL/min (>60) 04/29/21 03:35 BUN/Creatinine Ratio 30.1 RATIO (10-20) H 04/29/21 03:35 Glucose 116 mg/dL (74-106) H 04/29/21 03:35 Vancomycin Trough 21.9 ug/mL (5.0-15.0) H 04/27/21 12:04 Random Vancomycin 15.3 ug/mL (0.0-15.0) H 04/28/21 06:45 Microbiology: Microbiology 04/25/21 23:19 Sputum, Expectorated/Coughed Gram Stain - Final 04/25/21 23:19 Sputum, Expectorated/Coughed Respiratory Culture - Final 04/26/21 00:33 Urine, Clean Catch Urine Culture - Final Culture exhibits no growth. 04/25/21 14:25 Blood Culture (Wb) - Anticubital Left Blood Culture - Preliminary No growth in 48 hours. 04/25/21 14:30 Blood Culture (Wb) - Anticubital Right Blood Culture - Preliminary No growth in 48 hours. 04/25/21 Unknown Urine, Clean Catch Legionella Antigen - Final 04/25/21 Unknown Urine, Clean Catch Streptococcus pneumoniae Antigen (M - Final Goal Trough: 15-20 mcg/mL Pharmacy Plan for Drug Dosing: NEW START IV VANCOMYCIN Consulting Physician: Dr. Christianson Indication: PNA Goal Trough: 15-20 SrCr: 1.03 mg/dL CrCl: 83 mL/min Comments: Loading dose of 2000mg given at 1105 04/29/21 Vancomcyin Dose: 1750mg Q12H to start at 2300 04/29/21 Pending Level: Vancomycin trough @ 222904/30/21 Pharmacy Service will continue to monitor and adjust dosing as required. Labs to be done on [date and time ordered]: Vancomycin trough @ 222904/30/21
[2021-04-29] MEDS: Piperacil/Tazobactam 3.375 GM Q8 PREMIX IV (13:21)
--- NOTE | 2021-04-29 13:23 | CHAPLAIN ---
Type of Pastoral Visit _x__ Initial Visit ___ Follow-up Visit ___ On-call Visit ___ General Patient Visit ___ Spiritual Assessment ___ Family Conference ___ Bereavement ___ Rapid Response ___ Code Blue ___ Other (describe below) Pastoral Care Referral From ___ Patient ___ Family _x__ Nurse ___ Physician ___ Hvac Project Manager ___ Fitness Technician ___ Other (describe below) Sacrament/Intervention ___ Active listening ___ Anointing ___ Latter-Day ___ Bereavement ___ Communion ___ Neela exploration ___ _x__ Life review _x__ Prayer ___ Reconciliation ___ Sacrament of Sick _x__ Supportive presence ___ Wedding ___ Other (describe below) Pastoral Comments patient is deteriorating and spouse has been called in; met with spouse and gave support, presence, and prayer; other family members will be arriving and will offer support as needed for patient and family
[2021-04-29 13:56] LABS: Allen Test Positive; Base Excess -4 mmol/L (-2 to +2); Bicarbonate 25.7 mmol/L (22-26); Blood Gas Specimen Type ART; FI02 100; Mode AC; O2 Delivery Device Adult Vent; PEEP 14; PO2 49 mmHG (75-100); RR 21; SITE L Radial; SO2 66 % (95-99); Total Carbon Dioxide 28 mmol/L; Vt 400; pCO2 84.4 mmHg (35-45); pH 7.09 (7.35-7.45)
--- NOTE | 2021-04-29 14:19 | CASEMGMT ---
Social Work SW met with pt , dgt, brother in law and display associate. Emotional support provided. Pt family aware that SW is available for support as needed. EASTON Parrish
--- NOTE | 2021-04-29 16:05 | RAD_ITS ---
STUDY: X-RAY CHEST REASON FOR EXAM: Male, 61 years old. Persistent hypoxemia TECHNIQUE: AP COMPARISON: Previous day''s FINDINGS: Left jugular central venous catheter appears retracted with tip now overlying the expected location of the cavoatrial junction. Endotracheal tube is stable, terminating at the level of the clavicles. Esophagogastric tube extends to stomach. EKG leads project over the chest. Bilateral pulmonary infiltrates are stable. There is no demonstrated pleural abnormality. Normal size heart. Normal mediastinum and fantasma. Normal visualized pulmonary arteries. Normal visualized aortic arch and descending thoracic aorta. No acute bony process. There is no demonstrated abnormality of the visualized soft tissue structures of the upper abdomen. RAD/Chest 1 View (Portable) IMPRESSION: Stable multilobar pulmonary infiltrates. Mild retraction of left jugular central venous catheter with tip now at the cavoatrial junction. Electronically Signed: Dex Wiggins MD (Brooks) at 16:32 EST , Service support ,
--- NOTE | 2021-04-29 16:07 | ECHOCS_ITS ---
Reason For Study: shyunt physiology with severe hypoxia Procedure This was a 2D Doppler, Color Flow transthoracic echocardiogram. The study was technically difficult. The study was technically limited. PT on vent and due to bodyhabitus, unable to reposition. Exam performed portable in ICU/CCU. Left Ventricle Normal left ventricle. The estimated ejection fraction is 55-60 %. Right Ventricle Severely dilated right ventricle. Moderately severe global right ventricular systolic dysfunction. Atria Normal left atrium. RA difficult to Vsualize. Mitral Valve The mitral valve is structurally normal. No prolapse or stenosis seen. Tricuspid Valve Normal tricuspid valve. Moderate (2+) tricuspid valve insufficiency. Aortic Valve Normal aortic valve. Pulmonic Valve The pulmonic valve is not well visualized. Great Vessels Normal aortic root. Medication Diluted definity 6.0ml given slow IV push to enhance endocardial definition. Bubble study attempted 3 times. MMode/2D Measurements & Calculations LVIDd: 3.7 cm IVSd: 0.91 cm Ao root diam: 2.9 cm LVIDs: 2.6 cm LVPWd: 0.94 cm FS: 31.0 % LAV(MOD-sp4): 29.1 ml LA A4 area: 13.0 cm2 LA dimension(2D): 4.1 cm RA A4 area: 19.7 cm2 Time Measurements MV dec time: 0.15 sec Doppler Measurements & Calculations MV E max hadley: 49.5 cm/sec Lat Peak E' Hadley: 9.1 cm/sec Med Peak E' Hadley: 3.9 cm/sec MV A max hadley: 32.5 cm/sec E/E' lat: 5.4 E/E' med: 12.8 MV E/A: 1.5 Ao V2 max: 93.5 cm/sec LV V1 max: 69.0 cm/sec PA V2 max: 68.5 cm/sec Ao max P.5 mmHg LV V1 max P.9 mmHg TR max hadley: 272.1 cm/sec TR max P.6 mmHg ECHO/Echo Complete W/ Contrast Interpretation Summary The estimated ejection fraction is 55-60 %. Severe RV dilatation with Volume/Pressure oveload D-Shaped septum Dilated IVC Moderate TR Unable to comment on PAP Contrast Echo is used for endocardial Delinatation No prior echo to compare Ordering Physician: Reza Christianson Referring Physician: Lito Domínguez Performed By: Maribell Tlelo RDCS, RVT
--- NOTE | 2021-04-29 16:27 | CASEMGMT ---
RN CM NOTE: Hospitalization is being billed under Uninsured COVID. If transfer is recommended to tertiary facility, pt can transfer to any facility of choice. Wilner LEVIN RN CM
[2021-04-29] MEDS: Acetaminophen 650 MG/20 ML UDC GT (16:57)
--- NOTE | 2021-04-29 17:30 | CHAPLAIN ---
Type of Pastoral Visit ___ Initial Visit ___ Follow-up Visit ___ On-call Visit ___ General Patient Visit ___ Spiritual Assessment ___ Family Conference ___ Bereavement ___ Rapid Response ___ Code Blue ___ Other (describe below) Pastoral Care Referral From ___ Patient ___ Family ___ Nurse ___ Physician ___ Gunner'S Mate ___ Wood Car Builder ___ Other (describe below) Sacrament/Intervention ___ Active listening ___ Anointing ___ Hinduism ___ Bereavement ___ Communion ___ Neela exploration ___ ___ Life review ___ Prayer ___ Reconciliation ___ Sacrament of Sick ___ Supportive presence ___ Wedding ___ Other (describe below) Pastoral Comments several visits with family to offer presence and support; spouse requests more prayers;
[2021-04-29] MEDS: TITRATION PARAMETER CHANGE 1 EACH IV (21:41)
[2021-04-29] MEDS: Enoxaparin 100 MG/ML Syringe SC (21:42)
[2021-04-30] VITALS: BP 56/44; PULSE 100; PULSE 50; RESP 16; TEMP 39.8; O2SAT 70
--- NOTE | 2021-04-30 00:59 | PCM.PN.BLA ---
Progress Note Notified by nursing staff that patient passed on 04/30/2021 at 0030.
--- NOTE | 2021-04-30 01:20 | PCM.DEATH ---
Preliminary Cause of Preliminary Cause of Preliminary Cause of : Bacterial pneumonia; gram-positive, gram-negative or atypical Date of Admission: 04/25/21 Principle Diagnosis Problem List: Active and Suspected Problems (Updated 04/29/21 @ 00:01 by Background Daemonofre) Toe pain, left (Acute) Pain of toes of both feet (Acute) Ingrowing nail (Acute) Nail dystrophy (Acute) Acute respiratory failure with hypoxia (Acute) Hypoxemia (Acute) Hospital Course Patient who was unvaccinated against covid-19 virus was originally admitted to our hospital on 04/09/2021 with COVID-pneumonia. Reportedly patient tested positive for COVID-19 virus on April 04, 2021. On the first presentation because he his symptoms had presented for more than 11-day he was not a candidate of remdesivir. He again tested positive for rapid COVID antigen on 04/09/2021. He was treated with Decadron. Patient had high oxygen demands. Infectious disease was consulted and patient was started on baricitinib. Also patient was seen by pulmonary medicine. Chest x-ray at that time showed bilateral infiltrates. D-dimer was elevated. CTA did not show PE. Patient was discharged home on 04/21/2021 on oxygen. However on 04/25/2021, patient was readmitted to the hospital with a complaint of shortness of breath; fatigue and hypoxia. He was placed on BiPAP and admitted. Chest x-ray showed a progressively worsening bilateral infiltrates. A CTA of the chest also showed progressively worsening bilateral infiltrates but without PE. He was started on empiric antibiotics because of worsening of his respiratory symptoms. However blood cultures, sputum culture, Legionella antigen and strep pneumonia antigen was negative. Also procalcitonin was low. Antibiotics was discontinued. However patient respiratory symptoms got worse. He was unable to tolerate BiPAP as he haD some component of anxiety. Ativan, Haldol and Lasix was given. Patient was transferred to the intensive care unit. Patient was started on Precedex to see whether it could help with his anxiolytic symptoms. Because patient started spiking a fever he was restarted on vancomycin and cefepime. His repeat procalcitonin was elevated. Patient's respiratory symptoms continue to worsen. He was subsequently intubated and placed on sedatives and paralytics. Also stress dose steroids was initiated. His family requested the patient be made comfort care. Also while hospitalized because of nail dystrophy podiatry was consulted. Podiatry did debridement of toenails. Also patient had an episode of possible gout at the hospital. His uric acid was within normal limits. The gout improved with steroids. On 04/30/2021 at 0030 patient . Patient's was confirmed by ICU nurses. An order was placed to extubate the patient. Date of :04/30/2021. Time of : 0 Immediate cause of (final disease of condition resulting in ): Bacterial pneumonia, gram-positive, gram-negative or atypical; Duration: Days/month/years: Days Listed conditions leading to cause of (due to or as a consequence of) : COVID-pneumonia Day/month/years: Weeks Listed other significant conditions contributing to but not resulting in the underlying cause of : Hypertension; morbid obesity. Did tobacco contribute to : No. Patient was a never smoker. Patient was not seen by physician on the date of : Nonbillable.
== END 2021-04-30 03:00 | DRG 208 ==
LOC: ED 14:19 → PCU 17:05 → ICU 04-29 05:46
PROVIDERS: Hospitalist; Internal Medicine Critical Care Medicine; Admitting Provider Student in an Organized Health Care Education/Training Program; Emergency Provider Student in an Organized Health Care Education/Training Program; PCP Family Medicine
DX: U07.1 COVID-19 (principal); J96.01 Acute respiratory failure with hypoxia; R65.21 Severe sepsis with septic shock; J12.82 Pneumonia due to coronavirus disease 2019; A41.9 Sepsis, unspecified organism; J15.9 Unspecified bacterial pneumonia; I10 Essential (primary) hypertension; M10.9 Gout, unspecified; F41.9 Anxiety disorder, unspecified; L60.0 Ingrowing nail; R79.1 Abnormal coagulation profile; E66.9 Obesity, unspecified; R41.0 Disorientation, unspecified; Z79.899 Other long term (current) drug therapy; Z68.37 Body mass index [BMI] 37.0-37.9, adult
CPT/HCPCS: 31500; 31720; 36415; 36600; 71045; 71275; 80048; 80053; 80202; 81001; 82550; 82803; 83605; 83615; 83880; 84145; 84484; 84550; 85025; 85027; 85379; 85384; 85610; 85730; 86140; 87040; 87070; 87086; 87205; 87449; 93005; 93306; 94002; 94003; 94660; 94762; 94799; 97162; 97530; 99251; 99285; J7040; J7050; Q9957; Q9967; A4216; C8929; G0463; J0330; J1940; J3010; J3490